=== PATIENT | male | born 1930 | race Caucasian/White ===

== ENCOUNTER → 2016-04-01 | Outpatient (CLI) | payer BC ==
[~2016-04-01] MED LIST: ACET325T96 PO; AMOX500C3 PO; CEPH500C PO; FERR1TAB13 PO; FURO80TA63 PO; INSDGI SC; MULTTAB63 PO; POTA10CA28 PO; PRLSR20 PO; SALI0.6517 NAE; SALI1SPR3; SENN8.6T15 PO; SERT1TAB68 PO; VITACAP26 PO
[2016-04-01 09:07] LABS: BASO % 0.5 %; BASO ABS # 0.04 K/uL (0-0.2); COMPLETE YES; EOS % 1.8 %; HEMATOCRIT 37.9 % (42-52); IG% 0.6 %; LYMPH % 24.2 %; LYMPH ABS # 1.87 K/uL (1.2-3.4); MEAN CELL VOLUME 88.6 fL (80-100); MEAN CORPUSCULAR HGB CONC 32.7 g/dl (32-36); MEAN PLATELET VOLUME 11.1 fL (7.4-10.4); MONO % 14.9 %; PLATELET COUNT 190 K/uL (130-400); RED BLOOD COUNT 4.28 M/uL (4.7-6.1); WHITE BLOOD COUNT 7.74 K/uL (4.8-10.8)
[2016-04-01 09:15] LABS: ALT/SGPT 21 U/L (12-78)
[2016-04-01 09:17] LABS: ALKALINE PHOSPHATASE 83 U/L (45-117); AST/SGOT 20 U/L (15-37)
== END ==
LOC: C.LABVPSUA 08:46
PROVIDERS: ATTEND Internal Medicine Critical Care Medicine
DX: D64.9 Anemia, unspecified (principal); E78.00 Pure hypercholesterolemia, unspecified; K92.1 Melena

== ENCOUNTER → 2016-05-02 | Outpatient (CLI) | payer BC ==
[2016-05-02 09:36] LABS: BASO % 0.4 %; BASO ABS # 0.03 K/uL (0-0.2); COMPLETE YES; EOS % 2.2 %; HEMATOCRIT 38.4 % (42-52); IG% 0.5 %; LYMPH % 22.3 %; LYMPH ABS # 1.64 K/uL (1.2-3.4); MEAN CELL VOLUME 91.6 fL (80-100); MEAN CORPUSCULAR HEMOGLOBIN 29.6 pg (25-34); MEAN CORPUSCULAR HGB CONC 32.3 g/dl (32-36); MEAN PLATELET VOLUME 11.6 fL (7.4-10.4); MONO % 15.1 %; NEUT % 59.5 %; PLATELET COUNT 188 K/uL (130-400); RED BLOOD COUNT 4.19 M/uL (4.7-6.1); WHITE BLOOD COUNT 7.34 K/uL (4.8-10.8)
== END | disposition home or self-care (01) ==
LOC: C.LABVPSUA 09:23
PROVIDERS: ATTEND Internal Medicine Critical Care Medicine
DX: D64.9 Anemia, unspecified (principal); K92.1 Melena

== ENCOUNTER → 2016-07-08 | Outpatient (CLI) | payer BC ==
[~2016-07-08] MED LIST changes: +ACET-1256 PO; +ASCO500T3 PO; +CEPH-571 PO; +DLC5 PO; +INSDGIPEN SC; +POLY335019 PO; +SALI0.6510 NAE; +SENN1TAB86 PO; -SENN8.6T15 PO
[2016-07-08 10:02] LABS: BASO % 0.5 %; BASO ABS # 0.04 K/uL (0-0.2); COMPLETE YES; EOS % 2.6 %; HEMATOCRIT 35.2 % (42-52); IG% 1.4 %; LYMPH % 17.5 %; LYMPH ABS # 1.47 K/uL (1.2-3.4); MEAN CELL VOLUME 91.9 fL (80-100); MEAN CORPUSCULAR HEMOGLOBIN 29.5 pg (25-34); MEAN CORPUSCULAR HGB CONC 32.1 g/dl (32-36); MEAN PLATELET VOLUME 11.6 fL (7.4-10.4); MONO % 14.9 %; NEUT % 63.1 %; PLATELET COUNT 202 K/uL (130-400); RED BLOOD COUNT 3.83 M/uL (4.7-6.1); WHITE BLOOD COUNT 8.38 K/uL (4.8-10.8)
[2016-07-08 10:59] LABS: BLOOD UREA NITROGEN 15 mg/dl (7-18); BUN/CREATININE RATIO 11.4 (10-20); CALCIUM 8.8 mg/dl (8.5-10.1); CARBON DIOXIDE 30 mmol/L (21-32); CHLORIDE 97 mmol/L (98-107); GLUCOSE 455 mg/dl (70-99); POTASSIUM 3.8 mmol/L (3.5-5.1); SODIUM 134 mmol/L (136-145)
[2016-07-08 11:31] LABS: BETA-HYDROXYBUTYRATE 2.53 mg/dL (0.2-2.81)
== END | disposition home or self-care (01) ==
LOC: C.LABVPSUA 09:50
PROVIDERS: ATTEND Internal Medicine Critical Care Medicine
DX: I10 Essential (primary) hypertension (principal); D64.9 Anemia, unspecified

== ENCOUNTER → 2016-07-30 | Outpatient (CLI) | payer BC ==
[2016-07-30 10:08] LABS: BASO % 0.7 %; BASO ABS # 0.06 K/uL (0-0.2); COMPLETE YES; EOS % 2.1 %; HEMATOCRIT 38.7 % (42-52); IG% 0.7 %; LYMPH % 20.8 %; LYMPH ABS # 1.86 K/uL (1.2-3.4); MEAN CELL VOLUME 91.9 fL (80-100); MEAN CORPUSCULAR HEMOGLOBIN 28.5 pg (25-34); MEAN PLATELET VOLUME 11.3 fL (7.4-10.4); MONO % 12.1 %; NEUT % 63.6 %; PLATELET COUNT 213 K/uL (130-400); RED BLOOD COUNT 4.21 M/uL (4.7-6.1); WHITE BLOOD COUNT 8.93 K/uL (4.8-10.8)
== END | disposition home or self-care (01) ==
LOC: C.LABVPSUA 09:51
PROVIDERS: ATTEND Internal Medicine Critical Care Medicine
DX: D64.9 Anemia, unspecified (principal); R19.5 Other fecal abnormalities

== ENCOUNTER 2016-11-30 08:36 | Emergency (ER) | payer BC ==
[~2016-11-30] VITALS: Ht 177.8 cm; Wt 116.2 kg
[~2016-11-30 08:36] MED LIST changes: -ACET-1256 PO; -ASCO500T3 PO; -CEPH-571 PO; -CEPH500C PO; -DLC5 PO; -INSDGI SC; -INSDGIPEN SC; -MULTTAB63 PO; -POLY335019 PO; -SALI0.6510 NAE; -SALI1SPR3; -SENN1TAB86 PO; +SENN8.6T15 PO; -VITACAP26 PO
[2016-11-30 08:40] VITALS: TEMP 36.5; Ht 177.8 cm; Wt 116.2 kg
[2016-11-30] MEDS ORDERED: SALI1SPR3 (09:08)
[2016-11-30] MEDS ORDERED: MULTTAB63 PO (09:08)
[2016-11-30] MEDS ORDERED: VITACAP26 PO (09:08)
[2016-11-30] MEDS ORDERED: INSDGI SC (09:08)
[2016-11-30] MEDS ORDERED: XYLOCAINE 1%/SOD BICARB 20 ML VIAL INFIL ONE (09:15)
--- NOTE | 2016-11-30 09:44 | DIAGNOSTIC IMAGING REPORT ---
RIGHT FOOT MIN 3 VIEWS ROUTINE CLINICAL HISTORY: R foot 3/4/5 toe lacerations Right trauma COMPARISON: None. DISCUSSION: Considerable degenerative change throughout the foot and ankle. Heel spur is present. Degenerative change of the intertarsal, tarsometatarsal, as well as interphalangeal joints are noted throughout. This is most significant at the first metatarsophalangeal joint. No evidence for well-defined fracture is identified. Soft tissue edema is present. IMPRESSION: 1. Considerable degenerative change. 2. Soft tissue edema. 3. No acute bony abnormality. The above report was generated using voice recognition software. It may contain grammatical, syntax or spelling errors. Electronically signed by: Vini Velazquez M.D. 11/30/2016 9:43 AM Dictated Date/Time: 11/30/2016 9:41 AM
[2016-11-30 10:18] LABS: BASO % 0.6 %; BASO ABS # 0.06 K/uL (0-0.2); COMPLETE YES; EOS % 1.4 %; HEMATOCRIT 36.2 % (42-52); IG% 0.7 %; LYMPH % 14.4 %; LYMPH ABS # 1.51 K/uL (1.2-3.4); MEAN CELL VOLUME 92.3 fL (80-100); MEAN CORPUSCULAR HEMOGLOBIN 28.8 pg (25-34); MEAN CORPUSCULAR HGB CONC 31.2 g/dl (32-36); MEAN PLATELET VOLUME 10.6 fL (7.4-10.4); MONO % 14.1 %; NEUT % 68.8 %; PLATELET COUNT 217 K/uL (130-400); RED BLOOD COUNT 3.92 M/uL (4.7-6.1); WHITE BLOOD COUNT 10.48 K/uL (4.8-10.8)
[2016-11-30 10:34] LABS: BUN/CREATININE RATIO 15.6 (10-20); CALCIUM 9.5 mg/dl (8.5-10.1); CREATININE 1.4 mg/dl (0.60-1.40); POTASSIUM 3.7 mmol/L (3.5-5.1)
[2016-11-30] MEDS ORDERED: CEFAZOLIN SOD 1 GM VIAL IV ONE (10:45)
[2016-11-30] MEDS ORDERED: CEPH500C PO (10:46)
[2016-11-30 11:48] VITALS: BP 124/60; PULSE 53; O2SAT 100
--- NOTE | 2016-11-30 12:44 | EMERGENCY ROOM VISIT NOTE ---
ED Visit Note First contact with patient: 08:40 The patient was seen and examined with Jeremy Wadsworth PA-C. I agree with the history, physical and findings. Please see the note for disposition and details.
--- NOTE | 2016-12-04 18:58 | EMERGENCY ROOM VISIT NOTE ---
ED Visit Note First contact with patient: 08:40 Chief complaint: Right foot third, fourth, and fifth toe lacerations HPI: This 86-year-old white male presents with his for evaluation of lacerations on the undersurface of his third, fourth, and fifth toes of the right foot. They are unsure how the lacerations occurred. She states that he is mild to moderately demented, and does not remember things. He resides at the [facility], and she states he gets footcare there daily. Reportedly the nursing staff noticed cracks on the bottoms of his toes that were deep, and he was referred to the ED for treatment. They are unsure how long the lacerations have been present. They are unsure how they occurred. He denies any numbness, tingling, or loss of motion. No other complaints. Tetanus is believed to be up -to-date. Pain is 0/10. He is a diabetic. Supplemental sheet was not completed Previous surgeries: Right total knee arthroplasty, cataract surgery Medical history: Significant for dementia, diabetes, hypertension, osteoarthritis, TIA, atrial fibrillation, and GERD Current Medications: Reviewed and filed in patient's chart Allergies: Aspirin, IV dye, NSAIDs Tetanus: Believed to be within 10 years Family History: Noncontributory. Parents are . Social History: . Retired. No tobacco use. Resides at the [facility]. REVIEW OF SYSTEM: HEENT: No dizziness, visual problems, hearing loss, or tinnitus. There is no difficulty swallowing and no oral lesions are present. PULMONARY: No cough, shortness of breath, sputum production or hemoptysis. CARDIOVASCULAR: No chest pain, palpitations, shortness of breath or peripheral edema. GASTROINTESTINAL: No diarrhea, constipation, nausea, vomiting, or abdominal pain. GENITOURINARY: No dysuria, frequency, urgency or nocturia. NEUROLOGIC: No weakness, muscle tenderness, epilepsy or history of neurological problems. MUSCULOSKELETAL: No history of joint tenderness/swelling. Positive history of arthritis and arthralgias. SKIN: No rashes or lesions. PSYCHIATRIC: Positive history of dementia ENDOCRINE: No history of thyroid disorders, or abnormal hair growth. Physical Exam: Vitals: Afebrile. Reviewed and filed in patient's chart General: Well-developed, well-nourished, elderly white male, in no acute distress. No obvious discomfort. He is laying on the bed. Alert and oriented. Conversive. Skin: Warm and dry with fair turgor. No rashes. No ecchymosis or erythema. The patient is not diaphoretic. No abrasions. The patient has 3 separate lacerations present on the undersurface of the third, fourth, and fifth toes. Each are at the flexion crease and they are deep. Flexor sheaths are exposed. Each measures approximately 1 cm. No foreign material is visible. Clots are present. They are all very distinct with sharp edges. No current signs of infection. Nonpurulent. Musculoskeletal: Patient has intact motor function to each of the toes for flexion and extension. Neurologic: Gross sensation is absent in each of the toes. Capillary refill is equal for each of the digits. Impression: Right foot third, fourth, and fifth toe lacerations, 3 cm total Procedure: Informed oral consent was obtained for repair. Right foot was prepped with Betadine and draped with a sterile towel. Area was anesthetized using 10 mL 1% plain buffered lidocaine in a digital block, split between the toes. Thorough inspection was performed. Wounds were irrigated copiously using normal sterile saline under jet spray lavage. Wounds were thoroughly inspected. No foreign material is visible. Flexor tendon sheaths were exposed as stated. I do not find any laceration of the flexor tendons themselves. Wounds were closed loosely using 4-0 nylon. This was done to allow drainage should they become infected, not knowing how long the lacerations have been present. Good wound edge approximation was achieved. Hemostasis was achieved. Plan: Patient and his were educated regarding today's findings. Conservative care measures were discussed. Cleanse the wounds daily with soap and water and reapply a small amount of bacitracin. Ice and elevate intermittently as needed for discomfort. Tylenol every 6 hours as needed for pain. Wound care handout was provided. Sutures out in 14 days. He may shower. Avoid soaking or swimming for two weeks. Return to the ER for any acute changes or signs of infection. He should follow-up with his orthopedist for reevaluation given the tendon sheath exposure. Patient was started on Keflex 500 mg 4 times a day 5 days as a prophylaxis against infection, again not knowing how long the lacerations have been present. Possibility of them being caused by sharp metal object, or something as simple as a tight cotton fiber in his socks, was discussed. Patient was seen in conjunction with Dr. Connelly, who also evaluated the patient and concurred with today's diagnosis and treatment plan. Problem List Medical Problems: (1) Atrial fibrillation Status: Chronic (2) Dementia Status: Chronic (3) Diabetes Status: Chronic (4) GERD (gastroesophageal reflux disease) Status: Chronic (5) Hyperlipidemia Status: Chronic (6) Hypertension Status: Chronic (7) Right cataract Status: Resolved (8) TIA (transient ischemic attack) Status: Resolved Current/Historical Medications Scheduled Cephalexin Monohydrate (Keflex), 500 MG PO QID Ferrous Sulfate (Kp Ferrous Sulfate), 325 MG PO DAILY Furosemide (Lasix), 80 MG PO DAILY Insulin Glargine (Lantus), 40 UNITS SC QAM Multiple Vitamins W/ Minerals (Therems M), 1 TAB PO DAILY Omeprazole (Prilosec), 20 MG PO DAILY Potassium Chloride (Micro-K Ext Rel), 10 MEQ PO BID Saline (Saline Nasal [place]), 2 SPRAYS NA QID Sennosides-Docusate Sodium (Sennalax-S), 1 TAB PO BID Sertraline Hcl (Zoloft), 100 MG PO HS Vitamins C & E (Vitamin C), 1 CAP PO BID Scheduled PRN Acetaminophen Tab (Tylenol), 650 MG PO Q4H PRN for Mild Pain/Temp Allergies Coded Allergies: Iodinated Diagnostic Agents (Verified Allergy, Intermediate, HIVES, ) Aspirin (Verified Adverse Reaction, Intermediate, BLEEDING ,HX STOMACH ULCER, 11/30/16) NSAIDs (Verified Adverse Reaction, Intermediate, STOMACH ULCER, 11/30/16) Vital Signs Date Time Temp Pulse Resp B/P (MAP) Pulse Ox O2 Delivery O2 Flow Rate FiO2 11/30/16 11:48 53 20 124/60 100 Room Air 11/30/16 11:06 43 16 120/52 11/30/16 09:51 47 16 135/56 99 Room Air 11/30/16 08:40 36.5 41 18 148/56 100 Room Air Laboratory Results 11/30/16 09:43 Red Blood Count 3.92, Mean Corpuscular Volume 92.3, Mean Corpuscular Hemoglobin 28.8, Mean Corpuscular Hemoglobin Concent 31.2, Mean Platelet Volume 10.6, Neutrophils (%) (Auto) 68.8, Lymphocytes (%) (Auto) 14.4, Monocytes (%) (Auto) 14.1, Eosinophils (%) (Auto) 1.4, Basophils (%) (Auto) 0.6, Neutrophils # (Auto ) 7.21, Lymphocytes # (Auto) 1.51, Monocytes # (Auto) 1.48, Eosinophils # (Auto ) 0.15, Basophils # (Auto) 0.06 11/30/16 09:43 Test 11/30/16 09:43 White Blood Count 10.48 K/uL (4.8-10.8) Red Blood Count 3.92 M/uL (4.7-6.1) Hemoglobin 11.3 g/dL (14.0-18.0) Hematocrit 36.2 % (42-52) Mean Corpuscular Volume 92.3 fL (80-100) Mean Corpuscular Hemoglobin 28.8 pg (25-34) Mean Corpuscular Hemoglobin Concent 31.2 g/dl (32-36) Platelet Count 217 K/uL (130-400) Mean Platelet Volume 10.6 fL (7.4-10.4) Neutrophils (%) (Auto) 68.8 % Lymphocytes (%) (Auto) 14.4 % Monocytes (%) (Auto) 14.1 % Eosinophils (%) (Auto) 1.4 % Basophils (%) (Auto) 0.6 % Neutrophils # (Auto) 7.21 K/uL (1.4-6.5) Lymphocytes # (Auto) 1.51 K/uL (1.2-3.4) Monocytes # (Auto) 1.48 K/uL (0.11-0.59) Eosinophils # (Auto) 0.15 K/uL (0-0.5) Basophils # (Auto) 0.06 K/uL (0-0.2) RDW Standard Deviation 50.7 fL (36.4-46.3) RDW Coefficient of Variation 15.1 % (11.5-14.5) Immature Granulocyte % (Auto) 0.7 % Immature Granulocyte # (Auto) 0.07 K/uL (0.00-0.02) Anion Gap 6.0 mmol/L (3-11) Est Creatinine Clear Calc Drug Dose 48.4 ml/min Estimated GFR () 52.4 Estimated GFR (Non- 45.2 BUN/Creatinine Ratio 15.6 (10-20) Calcium Level 9.5 mg/dl (8.5-10.1) Medications Administered Medications (Trade) Dose Ordered Sig/Fidel Route Start Time Stop Time Status Last Admin Dose Admin Lidocaine HCl (Buffered Lidocaine 1% Inj) 20 ml NOW ONCE INFIL 11/30/16 09:15 11/30/16 09:16 DC 11/30/16 09:15 20 ML Cefazolin Sodium (Ancef Inj) 2,000 mg ONE ONCE IV 11/30/16 10:45 11/30/16 10:46 DC 11/30/16 11:03 2,000 MG Departure Information Impression Primary Impression: Laceration of toe of right foot Dispostion Home / Self-Care Condition FAIR Prescriptions Cephalexin Monohydrate (Keflex) 500 Mg Cap 500 MG PO QID, #20 CAP Prov: Ladairus Wadsworth,P.A. 11/30/16 Forms WORK / SCHOOL INSTRUCTIONS, HOME CARE DOCUMENTATION FORM, Days to leave dressing on: 1 Clean wound with;: soap and water Number of times/day to clean wound: 2 Coat wound with: antibiotic ointment Suture removal in how many days: 14 TYLENOL USE, WOUND CARE INSTRUCTIONS, IMPORTANT VISIT INFORMATION Patient Instructions My [facility] infibond Additional Instructions Cleanse the wounds daily with soap and water Avoid swimming or soaking for 2 weeks He may shower and wash his feet Tylenol every 6 hours as needed for discomfort Sutures out in 14 days Follow-up with Dr. Lagunas for reexamination Keflex one pill 4 times a day 5 days Return to the ED for any acute changes or signs of infection
== END 2016-11-30 12:15 | disposition home or self-care (01) ==
LOC: EDBD 08:36 → C.EDA 08:38
DX: S91.114A Laceration without foreign body of right lesser toe(s) without damage to nail, initial encounter (principal); X58.XXXA Exposure to other specified factors, initial encounter; F03.90 Unspecified dementia, unspecified severity, without behavioral disturbance, psychotic disturbance, mood disturbance, and anxiety; E11.9 Type 2 diabetes mellitus without complications; I10 Essential (primary) hypertension; M19.90 Unspecified osteoarthritis, unspecified site; G45.9 Transient cerebral ischemic attack, unspecified; I48.91 Unspecified atrial fibrillation; K21.9 Gastro-esophageal reflux disease without esophagitis

== ENCOUNTER 2017-02-15 14:24 | Inpatient (IN) | payer BC, OTHER ==
[~2017-02-15] VITALS: Ht 175.3 cm; Wt 117.3 kg
[~2017-02-15 14:24] MED LIST changes: +ACET-1693 PO; -ACET325T96 PO; -AMOX500C3 PO; +CEPH500C PO; +INSDGI SC; +MULTTAB63 PO; +SALI-3; -SALI0.6517 NAE; +SENN1TAB86 PO; -SENN8.6T15 PO; +VITACAP26 PO
[2017-02-15] MEDS ORDERED: ONDANSETRON INJ 2 MG/ML 2 ML VIAL IV STA (14:47)
[2017-02-15] MEDS ORDERED: SODIUM CHLORIDE 0.9% 500ML 500 ML IV STA (14:47)
--- NOTE | 2017-02-15 14:55 | EMERGENCY ROOM VISIT NOTE ---
History First contact with patient: 14:34 Chief Complaint: VOMITING Stated Complaint: CONSTIPATION Nursing Triage Summary: Abdominal distention, vomiting History of Present Illness The patient is a 86 year old male who presents to the Emergency Room with complaints of vomiting and abdominal distention has gotten progressively worse over the last 2 days. The patient has a history of significant dementia. The history is taken from the shelter notes. No reported fever. He has been having bowel movements. The patient's stool softener was increased with no relief. Review of Systems Unable to obtain secondary to dementia Past Medical/Surgical History Medical Problems: (1) Atrial fibrillation (2) Dementia (3) Diabetes (4) GERD (gastroesophageal reflux disease) (5) Hyperlipidemia (6) Hypertension (7) ileus, colitis, pneumonia (8) Right cataract (9) Sepsis due to pneumonia (10) TIA (transient ischemic attack) Family History Heart disease Social History Smoking Status: Never Smoker Drug Use: none Marital Status: Housing Status: shelter Occupation Status: retired Current/Historical Medications Scheduled Ascorbic Acid (Vitamin C), 500 MG PO BID Ferrous Sulfate (Kp Ferrous Sulfate), 325 MG PO DAILY Furosemide (Lasix), 80 MG PO DAILY Insulin Glargine (Lantus), 40 UNITS SC QAM Multiple Vitamins W/ Minerals (Therems M), 1 TAB PO DAILY Omeprazole (Prilosec), 20 MG PO DAILY Polyethylene Glycol 3350 (Miralax), 17 GM PO BID Potassium Chloride (Micro-K Ext Rel), 10 MEQ PO BID Saline ([place] Nasal [place]), 2 SPRAYS KARO QID Sennosides-Docusate Sodium (Sennalax-S), 1 TAB PO BID Sertraline Hcl (Zoloft), 100 MG PO HS Scheduled PRN Acetaminophen (Tylenol), 500 MG PO BID PRN for Pain Physical Exam Vital Signs Date Time Temp Pulse Resp B/P (MAP) Pulse Ox O2 Delivery O2 Flow Rate FiO2 02/15/17 15:51 54 18 123/56 96 02/15/17 14:32 36.8 56 18 117/49 94 Room Air Physical Exam VITALS: Vitals are noted on the nurse's note and reviewed by myself. Vital signs stable. GENERAL: 86-year-old male, in no acute distress SKIN: The skin was without rashes, erythema, edema, or bruising. HEAD: Normocephalic atraumatic. MOUTH: Mucous membranes dry. NECK: No JVD. HEART: Regular rate and rhythm without murmurs gallops or rubs. LUNGS: Clear to auscultation bilaterally without wheezes, rales or rhonchi. No accessory muscle use. ABDOMEN: Abdomen is significantly distended. Still soft. Bowel sounds tympanic. No focal tenderness. No rebound tenderness MUSCULOSKELETAL: No muscle atrophy, erythema, or edema noted. NEURO: Patient was alert and trying to respond to questions. He does not always respond appropriately. He does not follow commands. Medical Decision & Procedures ER Provider Diagnostic Interpretation: CT abdomen and pelvis without contrast Patient Name: RADHA NGUYEN Unit Number: [id number] Dictated: 02/15/171643 Transcribed: 02/15/171655 DueProps Printed Date/Time: [~ rep prt dt]/[~ rep prt tm] [~ rep ct labl] - [~ rep ct ivnm] [facility] [place] [address] Dictated: 02/15/171643 Transcribed: 02/15/171655 DueProps Printed Date/Time: [~ rep prt dt]/[~ rep prt tm] [~ rep ct labl] - [~ rep ct ivnm] IMPRESSION: 1. Distended colon primarily filled with gas and liquid stool. No transition point at this time to suggest a large bowel obstruction. Therefore, this could be due to an ileus or gastroenteritis. 2. Questionable mild thickening of the distal sigmoid colon/rectum. This could be due to underdistention. However, a low-grade colitis/proctitis could also have a similar appearance in the appropriate clinical setting. 3. Trace bilateral pleural effusions. 4. Patchy bibasilar airspace opacities. This could represent atelectasis or pneumonia. 5. Cholelithiasis. 6. Stable hyperdense lesion abutting the posterior aspect of the right hepatic lobe. The stability favors a benign abnormality Electronically signed by: Terrance Brandon M.D. 02/15/2017 5:01 PM Dictated Date/Time: 02/15/2017 4:44 PM The status of this report is Signed. Draft = Not yet reviewed or approved by Radiologist. Signed = Reviewed and approved by Radiologist. <AttendingPhy></AttendingPhy> <FamilyPhy>[facility]</FamilyPhy> < PrimaryPhy>[facility]</PrimaryPhy> <UnitNumber>[id number]</UnitNumber > <VisitNumber>[id number]</VisitNumber> <PatientName>RADHA NGUYEN</ PatientName> <DateOfBirth>1930</DateOfBirth> <Location>C[facility]EDB</Location> < ServiceDate>02/15/17</ServiceDate> <MNE>ESINDI</MNE> <OrderingPhy>Dariana Hector PA-C</OrderingPhy> <OrderingPhyMNE>f rep ord dr grande</OrderingPhyMNE> < DictatingPhyMNE>f rep dict dr grande</DictatingPhyMNE> <CCListMNE>f rep ct mne</ CCListMNE> <AdmittingPhyMNE>f pt admit dr grande</AdmittingPhyMNE> <AttendingPhyMNE >f pt attend dr grande</AttendingPhyMNE> <ConsultingPhyMNE>f pt consult dr grande</ConsultingPhyMNE> <FamilyPhyMNE>f pt fam dr grande</FamilyPhyMNE> <OtherPhyMNE>f pt other dr grande</OtherPhyMNE> < PrimaryPhyMNE>f pt prim care dr grande</PrimaryPhyMNE> <ReferringPhyMNE>f pt referring dr grande</ReferringPhyMNE> Laboratory Results 02/15/17 14:52 Red Blood Count 3.62, Mean Corpuscular Volume 92.8, Mean Corpuscular Hemoglobin 29.0, Mean Corpuscular Hemoglobin Concent 31.3, Mean Platelet Volume 10.6, Neutrophils (%) (Auto) 76.3, Lymphocytes (%) (Auto) 8.4, Monocytes (%) (Auto) 14.1, Eosinophils (%) (Auto) 0.5, Basophils (%) (Auto) 0.2, Neutrophils # (Auto ) 13.55, Lymphocytes # (Auto) 1.49, Monocytes # (Auto) 2.50, Eosinophils # (Auto ) 0.08, Basophils # (Auto) 0.03 11/26/17 14:52 Test 02/15/17 14:52 02/15/17 14:56 02/15/17 17:56 White Blood Count 17.73 K/uL (4.8-10.8) Red Blood Count 3.62 M/uL (4.7-6.1) Hemoglobin 10.5 g/dL (14.0-18.0) Hematocrit 33.6 % (42-52) Mean Corpuscular Volume 92.8 fL (80-100) Mean Corpuscular Hemoglobin 29.0 pg (25-34) Mean Corpuscular Hemoglobin Concent 31.3 g/dl (32-36) Platelet Count 264 K/uL (130-400) Mean Platelet Volume 10.6 fL (7.4-10.4) Neutrophils (%) (Auto) 76.3 % Lymphocytes (%) (Auto) 8.4 % Monocytes (%) (Auto) 14.1 % Eosinophils (%) (Auto) 0.5 % Basophils (%) (Auto) 0.2 % Neutrophils # (Auto) 13.55 K/uL (1.4-6.5) Lymphocytes # (Auto) 1.49 K/uL (1.2-3.4) Monocytes # (Auto) 2.50 K/uL (0.11-0.59) Eosinophils # (Auto) 0.08 K/uL (0-0.5) Basophils # (Auto) 0.03 K/uL (0-0.2) RDW Standard Deviation 49.1 fL (36.4-46.3) RDW Coefficient of Variation 14.5 % (11.5-14.5) Immature Granulocyte % (Auto) 0.5 % Immature Granulocyte # (Auto) 0.08 K/uL (0.00-0.02) Anion Gap 9.0 mmol/L (3-11) Est Creatinine Clear Calc Drug Dose 51.3 ml/min Estimated GFR () 60.6 Estimated GFR (Non- 52.3 BUN/Creatinine Ratio 17.9 (10-20) Calcium Level 9.2 mg/dl (8.5-10.1) Total Bilirubin 0.6 mg/dl (0.2-1) Aspartate Amino Transf (AST/SGOT) 26 U/L (15-37) Alanine Aminotransferase (ALT/SGPT) 20 U/L (12-78) Alkaline Phosphatase 101 U/L (45-117) Total Protein 7.9 gm/dl (6.4-8.2) Albumin 3.1 gm/dl (3.4-5.0) Globulin 4.8 gm/dl (2.5-4.0) Albumin/Globulin Ratio 0.6 (0.9-2) Lipase 88 U/L (73-393) Bedside Lactic Acid Venous 1.08 mmol/L (0.90-1.70) Date/Time Source Procedure Growth Status 02/15/17 18:00 Stool C.difficile Toxin B Gene (PCR) - Final No C. difficile toxin B gene detected Complete Medications Administered Medications (Trade) Dose Ordered Sig/Fidel Route Start Time Stop Time Status Last Admin Dose Admin Ondansetron HCl (Zofran Inj) 4 mg NOW STAT IV 02/15/17 14:47 02/15/17 14:51 DC 02/15/17 15:29 4 MG Sodium Chloride 500 ml @ 999 mls/hr Q31M STAT IV 02/15/17 14:47 02/15/17 15:17 DC 02/15/17 15:29 999 MLS/HR Haloperidol Lactate (Haldol Inj) 5 mg NOW STAT IM 02/15/17 15:44 02/15/17 15:45 DC 02/15/17 15:49 5 MG Potassium Chloride 10 meq/ Prmx 100 ml @ 100 mls/hr TODAY@1630 IV 02/15/17 16:30 02/15/17 19:00 DC 02/15/17 17:16 100 MLS/HR Piperacillin Sod/ Tazobactam Sod (Zosyn Iv) 3.375 gm NOW STAT IV 02/15/17 17:39 02/15/17 17:40 DC 02/15/17 18:54 3.375 GM Potassium Chloride (Kcl 10 Meq / Wtr) 10 meq NOW STAT IV 02/15/17 17:48 02/15/17 17:49 DC 02/15/17 18:55 10 MEQ ED Course Patient was seen and examined Vital signs including blood pressure were reviewed medications list was verified with patient Labs were obtained, and a saline lock was established The patient was medicated with Zofran. He was hydrated with 500 mL of normal saline. The patient became agitated. He required being medicated with Haldol 5 mg IM. Imaging was performed and reviewed Upon reevaluation, the patient was resting. The case was discussed with my supervising physician who personally evaluated the patient. The case was also discussed with case management. I then spoke with Dr. cohen from general surgery. We discussed the case. He did not suggest surgical intervention at this time. He recommended medical admission. The case was discussed with the [facility] hospitalist, who kindly agreed to admit the patient to the hospital for further workup and treatment. Medical Decision DIFFERENTIAL DIAGNOSIS: Bowel obstruction, volvulus, megacolon, Gastroenteritis , Hepatitis, cholecystitis, cholangitis, biliary colic, pancreatitis, appendicitis, inguinal hernia, nephrolithiasis, inflammatory bowel disease, mesenteric adenitis, peptic ulcer disease, GERD, gastritis, pancreatitis,, bowel obstruction, splenic infarct, diverticulitis, mesenteric ischemia, metabolic, peritonitis, among others. This patient is an 86-year-old male that presented to the emergency department with abdominal distention and vomiting. He has a history of dementia; therefore , the history was taken from nursing notes from the shelter. On exam, his abdomen was significantly distended with tympanic bowel sounds. His vital signs are stable. He does not appear septic. His labs show significant leukocytosis. A CAT scan was performed. His large bowel was significantly dilated with liquid stool. This was thought to either be secondary to gastroenteritis versus an ileus. The case was discussed with general surgery. They did not feel that he needed surgical intervention at this time. They did recommend keeping the patient in the hospital for close observation. The CAT scan did also note some bibasilar opacities of the lungs. Given this and his leukocytosis, I opted to treat the patient with Zosyn, which should be adequate coverage for pulmonary and GI infectious etiology. Dr. Damon is in agreement with this plan. This chart was completed in part utilizing [employer] Speech Voice Recognition software. Attempts were made to minimize the grammatical errors, random word insertions, pronoun errors and incomplete sentences. Any formal questions or concerns about the content, text or information contained within the body of this dictation should be directly addressed to the provider for clarification. Medication Reconcilliation Current Medication List: was personally reviewed by me Blood Pressure Screening Patient's blood pressure: Normal blood pressure Consults Consulting Physician: Dr. Cohen Additional Consults: Consulted Physician: dr. melany Horta Primary Impression: Ileus Departure Information Referrals [facility] (PCP) Patient Instructions [facility]
[2017-02-15 15:03] LABS: BASO % 0.2 %; BASO ABS # 0.03 K/uL (0-0.2); EOS % 0.5 %; EOS ABS # 0.08 K/uL (0-0.5); HEMATOCRIT 33.6 % (42-52); HEMOGLOBIN 10.5 g/dL (14.0-18.0); IG# 0.08 K/uL (0.00-0.02); LYMPH % 8.4 %; LYMPH ABS # 1.49 K/uL (1.2-3.4); MEAN CELL VOLUME 92.8 fL (80-100); MEAN CORPUSCULAR HGB CONC 31.3 g/dl (32-36); MEAN PLATELET VOLUME 10.6 fL (7.4-10.4); MONO % 14.1 %; NEUT % 76.3 %; NEUT ABS # 13.55 K/uL (1.4-6.5); PLATELET COUNT 264 K/uL (130-400); RED CELL DISTRIBUTION WIDTH CV 14.5 % (11.5-14.5); RED CELL DISTRIBUTION WIDTH SD 49.1 fL (36.4-46.3); WHITE BLOOD COUNT 17.73 K/uL (4.8-10.8)
--- NOTE | 2017-02-15 15:03 | EMERGENCY ROOM VISIT NOTE ---
ED Visit Note First contact with patient: 14:34 This Patient was discussed with the physician Local Telephone Operator, Dariana Hector PA-C. The pertinent historical and physical exam findings were confirmed. I agree with the studies ordered and with the interpretations of these studies. I agree with the disposition and care plan.
[2017-02-15 15:19] LABS: ALBUMIN 3.1 gm/dl (3.4-5.0); CALCIUM 9.2 mg/dl (8.5-10.1); CREATININE 1.24 mg/dl (0.60-1.40); POTASSIUM 3.1 mmol/L (3.5-5.1)
[2017-02-15 15:22] LABS: TOTAL PROTEIN 7.9 gm/dl (6.4-8.2)
[2017-02-15] MEDS ORDERED: ACET-1256 PO (15:30)
[2017-02-15] MEDS ORDERED: ASCO500T3 PO (15:31)
[2017-02-15] MEDS ORDERED: SALI0.6510 NAE (15:32)
[2017-02-15] MEDS ORDERED: POLY335019 PO (15:33)
[2017-02-15] MEDS ORDERED: HALOPERIDOL LACTATE 5 MG/ML 1 ML VIAL IM STA (15:44)
[2017-02-15] MEDS ORDERED: POTASSIUM CHLORIDE 10 MEQ / 100ML WTR IV STA ×2 (16:05→17:48)
[2017-02-15] MEDS ORDERED: POTASSIUM CHLR 10MEQ / WTR IV SCH (16:30)
--- NOTE | 2017-02-15 17:02 | DIAGNOSTIC IMAGING REPORT ---
ABDOMEN AND PELVIS CT WITHOUT CONTRAST CT DOSE: 1094.09 mGy.cm HISTORY: vomiting abd distention ? obstruction, ischemia TECHNIQUE: Multiaxial CT images of the abdomen and pelvis were performed without contrast. A dose lowering technique was utilized adhering to the principles of ALARA. COMPARISON STUDY: Abdomen and pelvis CT 09/04/2015. FINDINGS: Trace bilateral pleural effusions. Patchy bibasilar densities. No pneumoperitoneum. No pneumatosis. No fractures within the visualized osseous structures. Stable 8.1 cm oval-shaped hyperdense lesion which abuts the posterior segment of the right hepatic lobe. The unenhanced spleen, adrenal glands are unremarkable. There are few punctate calcifications within the pancreatic head. There are few punctate gallstones. No hydronephrosis. Mild bilateral perinephric edema which is likely chronic. This remains unchanged. No retroperitoneal lymphadenopathy. Normal bladder. Small fat-containing bilateral inguinal hernias. The stomach and small bowel are normal in caliber. There is liquid stool seen throughout the colon. Colonic diverticulosis. The majority of the colon is distended and gas-filled. No transition point identified to suggest a large bowel obstruction. The transverse colon is distended up to 8.5 cm. Questionable mild thickening of the distal sigmoid colon/rectum which may be due to underdistention. Normal bladder. IMPRESSION: 1. Distended colon primarily filled with gas and liquid stool. No transition point at this time to suggest a large bowel obstruction. Therefore, this could be due to an ileus or gastroenteritis. 2. Questionable mild thickening of the distal sigmoid colon/rectum. This could be due to underdistention. However, a low-grade colitis/proctitis could also have a similar appearance in the appropriate clinical setting. 3. Trace bilateral pleural effusions. 4. Patchy bibasilar airspace opacities. This could represent atelectasis or pneumonia. 5. Cholelithiasis. 6. Stable hyperdense lesion abutting the posterior aspect of the right hepatic lobe. The stability favors a benign abnormality Electronically signed by: Terrance Brandon M.D. 02/15/2017 5:01 PM Dictated Date/Time: 02/15/2017 4:44 PM
[2017-02-15] MEDS ORDERED: PIPERACILLIN/TAZOBACTAM 3.375 GM/100ML D5W IV STA (17:39)
[2017-02-15] MEDS ORDERED: ACETAMINOPHEN 325 MG TAB PO PRN (18:00)
[2017-02-15] MEDS ORDERED: ONDANSETRON INJ 2 MG/ML 2 ML VIAL IV PRN (18:00)
[2017-02-15] MEDS ORDERED: ALUMINUM/MAGNESIUM/SIMETH (MAALOX MAX) 30 ML UDC PO PRN (18:00)
[2017-02-15] MEDS ORDERED: MAGNESIUM HYDROXIDE SUSP 30 ML UDC PO PRN (18:00)
[2017-02-15] MEDS ORDERED: POLYETHYLENE (MIRALAX) 17 GM PACK PO PRN (18:00)
--- NOTE | 2017-02-15 18:17 | History and Physical ---
History & Physical Date of Service Feb 15, 2017. History & Physical ileus, colitis, pneumonia, [id number]
[2017-02-15 18:24] VITALS: O2SAT 96; Ht 175.3 cm; Wt 117.3 kg
--- NOTE | 2017-02-15 18:24 | NUR ---
A/ID: 86 year old male in ED. Patient resides at [facility]. Abdomen firm, distended, transfer record of vomiting X 2 days as well. out of town. Unable to secure Code Word or Fall Agreement. Patient baseline of Alzheimer's or vascular dementia. He becomes agitated easily. Skin assessment needs to be done on unit. Admission Assessment done. Continued care in ED by GINNY Briones.
--- NOTE | 2017-02-15 19:00 | HISTORY & PHYSICAL EXAMINATION ---
DATE OF ADMISSION: 02/15/2017 This is level 3 inpatient admission, 35 minutes. CHIEF COMPLAINT: Abdominal distention and vomiting. HISTORY OF PRESENT ILLNESS: This is an 86-year-old white male with a significant past medical history of AFib, dementia, diabetic, GERD, hypertension, history of pneumonia, TIA, presented to the Emergency Room because of the above chief complaint. Per record, the patient was having vomiting, abdominal distention and has been getting progressively worse for 2 days. History of significant dementia. Medical record was obtained from nursing note, and per discussion with ED physician, patient with no fever, no chills, was very combative needed Haldol 5 mg in the Emergency Room. He has been having a bowel movement. When I examined him, he has bowel movement in the diaper with liquid dark green stools. Per documentation, patient's stool softener has been increased, but is not having any significant improving of bowel movement. His examination of the abdomen was tympanic, very much distended, some tenderness in palpation. There was no nausea, vomiting in the Emergency Room. Review of systems is limited, not able to obtain. In the Emergency Room, he was found to have ileus or possible colitis, C. diff was sent. CT of abdomen showed possible bilateral base pneumonia, has leukocytosis. ED started antibiotics. When I examined the patient, he was having some cough. PAST MEDICAL HISTORY: Include AFib, dementia, diabetic, GERD, dyslipidemia, hypertension, sepsis due to pneumonia, TIA. FAMILY HISTORY: Include heart disease. SOCIAL HISTORY: Never smoked. Denied alcohol abuse disorder, denied illicit drug abuse. The patient is , living in the senior living, is retired. MEDICATIONS: Prior to admission include vitamin C 500 mg p.o. b.i.d., ferrous sulfate 325 mg p.o. daily, Lasix 80 mg p.o. daily, insulin Glargine 40 units subQ q.a.m., multiple vitamin 1 tab p.o. daily, Protonix 20 mg p.o. daily, MiraLax 17 grams p.o. b.i.d., potassium chloride 10 mEq p.o. b.i.d., nasal saline spray, Senna-Lax 1 tab p.o. b.i.d., Zoloft 100 mg p.o. at bedtime. REVIEW OF SYSTEMS: Please see HPI, otherwise 14-point organ system review were negative. PHYSICAL EXAMINATION: VITAL SIGNS: Temperature is 36.8, pulse 56, respiration rate 18, blood pressure 117/49, pulse ox was 94% in room air. GENERAL: The patient is a white male, confused, moaning, obesity, no acute distress. SKIN: Has no rashes. No erythema or edema. Not bluish. In the deep sacral area, there is some reddish dime-sized area. There are 2 spots opening up. HEENT: Normocephalic. Mouth, moist mucous membrane dry. NECK: No JVD. HEART: Regular rhythm S1, S2, has no murmur, no gallop, no rubs. LUNGS: Decreased breathing sounds. There was no wheezing, rhonchi or crackles. ABDOMEN: Much significant distended and tympanic. No focal tenderness, but has diffuse tenderness. Bowel sounds decreased. MUSCULOSKELETAL: No edema, no clubbing. NEUROLOGIC: The patient was alert and trying to respond to questions; however, not responding appropriately, not able to follow our commands. LABORATORY STUDIES: WBC 17, hemoglobin 10, platelet 264, neutrophils 76%. Potassium 3.1, sodium 139, BUN 22, creatinine 1.2. Blood glucose 155. Liver function test within normal limits. Lipase 88. Blood culture was sent. IMAGING STUDIES: Abdominal pelvic CT studies were done in the Emergency Room, there was distended colons, primary feel was gas and liquid stools, no suggestion of large bowel obstruction, ileus and gastroenteritis. There is possible low grade colitis or proctitis. There was trace pleural effusion and patchy bibasilar airspace opacities. There was cholelithiasis. There was stable hyperdense lesions in the right hepatic lobe which is not new. ASSESSMENT: An 86-year-old white male with the conditions see below: 1. Likely is ileus or gastroenteritis associated with significant distention, nausea, vomiting prior to the hospital ED visit, now has at least 2 times bowel movement. 2. Diarrhea, need to rule out Clostridium difficile colitis. 3. Possible pneumonia with bibasilar opacities in the bilateral lung. 4. Obvious leukocytosis. 5. Hypokalemia. 6. Chronic anemia. 7. History of atrial fibrillation, dementia, diabetic, dyslipidemia, hypertension, transient ischemic attack. PLAN: 1. Because patient has cough and bibasilar patchy like infiltrations with leukocytosis, therefore possible has pneumonia. We will order Levaquin coverage, start nebulizer treatment, oxygen support and sputum culture. 2. Possible ileus with significant tympanic abdomen distention, possible only has 1-2 small bowel movement. We will keep n.p.o. except medication. Will give MiraLax continually daily. Per ED, they talked ot surgeon land acquisition manager already, he feel not a surgical case and they will see patient as a consult. In about 8 pm, land acquisition manager surgeon called me, patient possible have sigmoid colon volvulus, need to consult GI for possible sigmoidoscopy to Dx and treat possible sigmoid colon volvulus, I face to face to signed out to land acquisition manager shift boss hospitalist to continue care of patient. He kindly agreed about this. 3. Possible colitis, like I mentioned, will check stool Hemoccult and C. diff. GI consultation. 4. Leukocytosis, we will check for ESR, CRP, procalcitonin levels and follow up blood culture. ED physician has talked to land acquisition manager surgeon , no surgical input for now. 5. Other medical conditions include diabetic, hypertension, dyslipidemia, AFib, we will continue home medications. We will order Protonix, check HbA1c, add insulin sliding scale upon home medication. 6. GI and DVT prophylaxis is ordered. Per medical record here, although patient and are do not resuscitation, but in the last admission wanted him to be full code, need to have further discussed with the patient's about the living will and the goal of the care. LAM
--- NOTE | 2017-02-15 20:05 | Surgery Consultation ---
Consultation Date of Consultation: Feb 15, 2017. Attending Physician: History of Present Illness The patient is a 86 year old male who presents to the Emergency Room with complaints of vomiting and abdominal distention has gotten progressively worse over the last 2 days. The patient has a history of significant dementia. The history is taken from the longterm notes. No reported fever. He has been having bowel movements. The patient's stool softener was increased with no relief. I got a call for consult ileus possible colitis, I saw pt at ER, pt denies abdominal pain, passed a BM today, pt denies fever, no diarrhea. Past Medical/Surgical History Medical Problems: (1) Bilateral pneumonia Status: Acute (2) Laceration of toe of right foot Status: Acute (3) Lactic acidosis Status: Acute (4) Leukocytosis Status: Acute (5) Severe sepsis Status: Acute Family History Heart disease Social History Smoking Status: Former Smoker Smokeless Tobacco Use: No Alcohol Use: none Drug Use: none Marital Status: Housing Status: longterm Occupation Status: retired Allergies Coded Allergies: Iodinated Diagnostic Agents (Verified Allergy, Intermediate, HIVES, ) Aspirin (Verified Adverse Reaction, Intermediate, BLEEDING ,HX STOMACH ULCER, 02/15/17) NSAIDs (Verified Adverse Reaction, Intermediate, STOMACH ULCER, 02/15/17) Home Medications Scheduled Ascorbic Acid (Vitamin C), 500 MG PO BID Ferrous Sulfate (Kp Ferrous Sulfate), 325 MG PO DAILY Furosemide (Lasix), 80 MG PO DAILY Insulin Glargine (Lantus), 40 UNITS SC QAM Multiple Vitamins W/ Minerals (Therems M), 1 TAB PO DAILY Omeprazole (Prilosec), 20 MG PO DAILY Polyethylene Glycol 3350 (Miralax), 17 GM PO BID Potassium Chloride (Micro-K Ext Rel), 10 MEQ PO BID Saline ([place]), 2 SPRAYS KARO QID Sennosides-Docusate Sodium (Sennalax-S), 1 TAB PO BID Sertraline Hcl (Zoloft), 100 MG PO HS Scheduled PRN Acetaminophen (Tylenol), 500 MG PO BID PRN for Pain Current Inpatient Medications Current Inpatient Medications Medications (Trade) Dose Ordered Sig/Fidel Route Start Time Stop Time Status Last Admin Dose Admin Heparin Sodium (Porcine) (Heparin Sq 5000 Unit/0.5ml) 5,000 unit Q12 SQ 02/15/17 21:00 03/17/17 20:59 UNV Potassium Chloride/Sodium Chloride 1,000 ml @ 75 mls/hr [id number] IV 02/15/17 17:56 03/17/17 17:55 UNV Acetaminophen (Tylenol Tab) 650 mg Q4H PRN PO 02/15/17 18:00 03/17/17 17:59 Al Hydrox/Mg Hydrox/Simethicone (Maalox Max Susp) 15 ml Q4H PRN PO 02/15/17 18:00 03/17/17 17:59 Magnesium Hydroxide (Milk Of Magnesia Susp) 30 ml Q12H PRN PO 02/15/17 18:00 03/17/17 17:59 Ondansetron HCl (Zofran Inj) 4 mg Q6H PRN IV 02/15/17 18:00 03/17/17 17:59 Polyethylene (Miralax Powder Packet) 17 gm DAILY PRN PO 02/15/17 18:00 03/17/17 17:59 Levofloxacin 750 mg/Prmx 150 ml @ 100 mls/hr DAILY STAT IV 02/15/17 17:56 02/15/17 19:25 UNV Albuterol/ Ipratropium (Duoneb) 3 ml QIDR INH 02/15/17 20:00 03/17/17 19:59 Ascorbic Acid (Vitamin C Tab) 500 mg BID PO 02/15/17 21:00 03/17/17 20:59 UNV Furosemide (Lasix Tab) 80 mg DAILY PO 02/16/17 09:00 03/18/17 08:59 UNV Insulin Glargine (Lantus Solostar Pen) 30 units QAM SC 02/16/17 09:00 03/18/17 08:59 UNV Multivitamins/ Minerals (Multivitamin W/ Minerals Tab) 1 tab DAILY PO 02/16/17 09:00 03/18/17 08:59 UNV Potassium Chloride (Klor-Con M10) 10 meq BID PO 02/15/17 21:00 03/17/17 20:59 UNV Sodium Chloride ([place] Nasal [place]) 2 sprays QID KARO 02/15/17 21:00 03/17/17 20:59 UNV Senna/Docusate Sodium (Senokot S Tab) 1 tab BID PO 02/15/17 21:00 03/17/17 20:59 UNV Sertraline HCl (Zoloft Tab) 100 mg HS PO 02/15/17 21:00 03/17/17 20:59 UNV Non-Formulary Medication (Ferrous Sulfate (Kp Ferrous Sulfate)) 325 mg DAILY PO 02/16/17 09:00 03/18/17 08:59 UNV Non-Formulary Medication (Polyethylene Glycol 3350 (Miralax)) 17 gm BID PO 02/15/17 21:00 03/17/17 20:59 UNV Insulin Aspart (novoLOG ASPART) SLIDING SCALE G... ACHS SC 02/15/17 21:00 03/17/17 20:59 UNV Pantoprazole Sodium 40 mg/ Syringe 10 ml @ 5 mls/min DAILY@11 IV 02/16/17 11:00 03/18/17 10:59 UNV Pantoprazole Sodium 40 mg/ Syringe 10 ml @ 5 mls/min NOW ONCE IV 02/15/17 18:30 02/15/17 18:31 UNV Polyethylene (Miralax Powder Packet) 17 gm NOW STAT PO 02/15/17 18:17 02/15/17 18:18 UNV Review of Systems Constitutional: No fever, No chills, No sweats, No weight loss, No weakness, No fatigue, No problem reported Eyes: No worsening of vision, No eye pain, No redness, No discharge, No diplopia, No problem reported ENT: No hearing loss, No unusual epistaxis, No nasal symptoms, No sore throat, No tinnitus, No dental problems, No trouble swallowing, No problem reported Respiratory: No cough, No sputum, No wheezing, No shortness of breath, No dyspnea on exertion, No dyspnea at rest, No hemoptysis, No problem reported Cardiovascular: No chest pain, No orthopnea, No PND, No edema, No claudication , No palpitations, No problem reported Abdomen: + nausea, + vomiting Musculoskeletal: No joint pain, No muscle pain, No swelling, No calf pain, No problem reported Neurologic: + memory loss, No paralysis, No weakness, No numbness/tingling, No vertigo, No balance problems, No problem reported Psychiatric: No depression symptoms, No anhedonism, No anxiety, No insomnia, No substance abuse, No problem reported Endocrine: No fatigue, No excessive thirst, No excessive urination, No problem reported Hematologic / Lymphatic: No abnormal bleeding/bruising, No clotting problems, No swollen lymph nodes, No night sweats, No problem reported Physical Exam Date Time Temp Pulse Resp B/P (MAP) Pulse Ox O2 Delivery O2 Flow Rate FiO2 02/15/17 19:07 58 18 140/71 96 Room Air 02/15/17 18:24 96 Room Air 02/15/17 15:51 54 18 123/56 96 02/15/17 14:32 36.8 56 18 117/49 94 Room Air General Appearance: WD/WN, no apparent distress Head: normocephalic Eyes: normal inspection ENT: normal ENT inspection Neck: supple, no JVD Respiratory/Chest: chest non-tender, lungs clear Cardiovascular: regular rate, rhythm, no edema, no gallop, no JVD, no murmur Abdomen/GI: normal bowel sounds, non tender, + distended Extremities/Musculoskelatal: normal inspection, no calf tenderness, normal capillary refill Neurologic/Psych: no motor/sensory deficits, alert, normal mood/affect Skin: normal color, warm/dry, no rash Laboratory Results Last 24 Hours Test 02/15/17 14:52 02/15/17 14:56 02/15/17 17:56 White Blood Count 17.73 K/uL Red Blood Count 3.62 M/uL Hemoglobin 10.5 g/dL Hematocrit 33.6 % Mean Corpuscular Volume 92.8 fL Mean Corpuscular Hemoglobin 29.0 pg Mean Corpuscular Hemoglobin Concent 31.3 g/dl Platelet Count 264 K/uL Mean Platelet Volume 10.6 fL Neutrophils (%) (Auto) 76.3 % Lymphocytes (%) (Auto) 8.4 % Monocytes (%) (Auto) 14.1 % Eosinophils (%) (Auto) 0.5 % Basophils (%) (Auto) 0.2 % Neutrophils # (Auto) 13.55 K/uL Lymphocytes # (Auto) 1.49 K/uL Monocytes # (Auto) 2.50 K/uL Eosinophils # (Auto) 0.08 K/uL Basophils # (Auto) 0.03 K/uL RDW Standard Deviation 49.1 fL RDW Coefficient of Variation 14.5 % Immature Granulocyte % (Auto) 0.5 % Immature Granulocyte # (Auto) 0.08 K/uL Sodium Level 139 mmol/L Potassium Level 3.1 mmol/L Chloride Level 101 mmol/L Carbon Dioxide Level 30 mmol/L Anion Gap 9.0 mmol/L Blood Urea Nitrogen 22 mg/dl Creatinine 1.24 mg/dl Est Creatinine Clear Calc Drug Dose 51.3 ml/min Estimated GFR () 60.6 Estimated GFR (Non- 52.3 BUN/Creatinine Ratio 17.9 Random Glucose 155 mg/dl Calcium Level 9.2 mg/dl Total Bilirubin 0.6 mg/dl Aspartate Amino Transf (AST/SGOT) 26 U/L Alanine Aminotransferase (ALT/SGPT) 20 U/L Alkaline Phosphatase 101 U/L Total Protein 7.9 gm/dl Albumin 3.1 gm/dl Globulin 4.8 gm/dl Albumin/Globulin Ratio 0.6 Lipase 88 U/L Bedside Lactic Acid Venous 1.08 mmol/L Assessment & Plan CT scan-IMPRESSION: 1. Distended colon primarily filled with gas and liquid stool. No transition point at this time to suggest a large bowel obstruction. Therefore, this could be due to an ileus or gastroenteritis. 2. Questionable mild thickening of the distal sigmoid colon/rectum. This could be due to underdistention. However, a low-grade colitis/proctitis could also have a similar appearance in the appropriate clinical setting. 3. Trace bilateral pleural effusions. 4. Patchy bibasilar airspace opacities. This could represent atelectasis or pneumonia. 5. Cholelithiasis. 6. Stable hyperdense lesion abutting the posterior aspect of the right hepatic lobe. The stability favors a benign abnormality Assessment: pt is a 86 west old male who presents to Er for 2 days abdominal distended, with nausea and vomiting, IMP: ileus, colitis, sigmoid colon volvulus? correct low K consult GI for possible sigmoidoscopy to Dx and treat possible sigmoid colon volvulus IV fluid IV antibiotic repeat labs in am, will F/U
[2017-02-15] MEDS ORDERED: GLUCAGON FOR INJ 1 MG VIAL SQ PRN (20:15)
[2017-02-15] MEDS ORDERED: GLUCOSE 40% GEL 15 GM TUBE PO PRN (20:15)
[2017-02-15] MEDS ORDERED: GLUCOSE 10 TABS/TUBE PO PRN (20:15)
[2017-02-15] MEDS ORDERED: DEXTROSE 50% 50 ML SYR IV PRN (20:15)
[2017-02-15] MEDS ORDERED: SOD PHOSPHATE/SOD BIPHOSPHATE ENEMA 132 ML BTL PR ONE (20:30)
[2017-02-15] MEDS ORDERED: POLYETHYLENE (MIRALAX) 17 GM PACK PO STA (20:30)
[2017-02-15] MEDS ORDERED: PANTOprazole INJ 40 MG in SYRINGE 0 ML IV ONE (20:30)
[2017-02-15 20:42] VITALS: BP 139/69; PULSE 58; TEMP 37; O2SAT 99
[2017-02-15] MEDS ORDERED: PNEUMOCOCCAL ADMINISTRATION CHARGE ONE (20:45)
[2017-02-15] MEDS ORDERED: PNEUMOCOCCAL POLYSACCHARIDES 25 MCG/0.5 ML VIAL/SYR IM. ONE (20:45)
[2017-02-15 20:58] VITALS: PULSE 57; O2SAT 91
[2017-02-15] MEDS: ALBUT/IPRATROP 3MG/0.5MG NEB 3 ML VIAL INH SCH (20:58)
[2017-02-15] MEDS: DOCUSATE SODIUM/SENNA 50/8.6MG TAB PO SCH (21:00)
[2017-02-15] MEDS: POLYETHYLENE (MIRALAX) 17 GM PACK PO SCH (21:00)
[2017-02-15] MEDS: INSULIN ASPART 100 UNITS/ML 3 ML PEN SC SCH (21:00)
[2017-02-15] MEDS ORDERED: LIDOCAINE HCL 2% 2 ML VIAL (20MG/ML) ONE (21:05)
[2017-02-15] MEDS ORDERED: PROPOFOL IV EMULSION 10 MG/ML 20 ML VIAL IV ONE (21:05)
--- NOTE | 2017-02-15 21:18 | Endo History and Physical ---
History & Physical Date of Service: Feb 15, 2017. Chief Complaint: Abdominal distension Referring Physician: Dr. Nikita Ross History of Present Illness Please see dictated consultation for full details of presentation. GI is consultative due to markedly dilated colon of 11.5 cm in the cecum and 8.5 cm in the transverse colon general surgery is concerned about a possible sigmoid volvulus Past Medical History Atrial Fibrillation, Diabetes, Alzheimer's, Angioplasty/Stent, Arthritis, Asthma , Male Genitourinary Prob., Anxiety, Reflux, High Cholesterol, Heart Disease, Hypertension Past Surgical History Hx Cardiac Surgery: Yes (CARDIAC CATH WITH ANGIOPLASTY) Hx Abdominal Surgery: Yes (HERNIA) Hx Post-Op Nausea and Vomiting: No Hx Cancer Surgery: No Hx Thoracic Surgery: No Hx Orthopedic: Yes (LUMBAR SURGERY, KNEE) Hx Urinary Tract Surgery: No Social History Smoking Status: Former Smoker Smokeless Tobacco Use: No Hx Substance Use: No Hx Alcohol Use: No Allergies Coded Allergies: Iodinated Diagnostic Agents (Verified Allergy, Intermediate, HIVES, ) Aspirin (Verified Adverse Reaction, Intermediate, BLEEDING ,HX STOMACH ULCER, 02/15/17) NSAIDs (Verified Adverse Reaction, Intermediate, STOMACH ULCER, 02/15/17) Current Medications Reported Home Medications Medications Dose Route/Sig Max Daily Dose Days Date Category Dose Instructions Miralax (Polyethylene Glycol 3350) 1 Pow 17 Gm PO BID 02/15/17 Reported Prien Nasal [place] (Saline) 0.65 % Spr 2 Sprays KARO QID 02/15/17 Reported Vitamin C (Ascorbic Acid) 500 Mg Tab 500 Mg PO BID 02/15/17 Reported Tylenol (Acetaminophen) 500 Mg Tab 500 Mg PO BID PRN 02/15/17 Reported Therems M (Multiple Vitamins W/ Minerals) 1 Tab Tab 1 Tab PO DAILY 11/30/16 Reported Lantus (Insulin Glargine) 100 Unit/Ml Inj 40 Units SC QAM 11/30/16 Reported Kp Ferrous Sulfate (Ferrous Sulfate) 325 Mg Tab 325 Mg PO DAILY 12/05/15 Reported Micro-K Ext Rel (Potassium Chloride) 10 Meq Capcr 10 Meq PO BID 09/04/15 Reported Lasix (Furosemide) 80 Mg Tab 80 Mg PO DAILY 09/04/15 Reported Sennalax-S (Sennosides-Docusate Sodium) 1 Tab Tab 1 Tab PO BID 01/16/14 Reported HOLD THIS MEDICATION FOR LOOSE STOOLS. Zoloft (Sertraline Hcl) 100 Mg Tab 100 Mg PO HS 01/16/14 Reported Prilosec (Omeprazole) 20 Mg Capcr 20 Mg PO DAILY 05/05/13 Reported Vital Signs Weight (Kilograms): 106.000 Height (Feet): 5 Height (Inches): 9.00 Date Time Temp Pulse Resp B/P (MAP) Pulse Ox O2 Delivery O2 Flow Rate FiO2 02/15/17 20:58 57 16 91 Room Air 02/15/17 20:42 37.0 58 20 139/69 (92) 99 Room Air 02/15/17 20:05 58 18 130/59 95 02/15/17 19:07 58 18 140/71 96 Room Air 02/15/17 18:24 96 Room Air 02/15/17 15:51 54 18 123/56 96 02/15/17 14:32 36.8 56 18 117/49 94 Room Air Physical Exam General Appearance: + mild distress Respiratory/Chest: Auscultation: deminished air movement Cardiovascular: Heart Auscultation: murmur Abdomen: Inspection & Palpation: distended Assessment and Plan We are planning to do an urgent colonic decompression this evening due to a markedly dilated colon. It is unclear whether this represents an underlying sigmoid volvulus or perhaps colonic inertia. Recommendations Colonoscopic decompression be performed today Avoid narcotics Daily KUB
[2017-02-15] MEDS ORDERED: MINERAL OIL 30 ML UDC ONE (21:22)
[2017-02-15] MEDS ORDERED: ATROPINE SULFATE 0.1 MG/ML 5ML SYR IV PRN (21:30)
[2017-02-15] MEDS ORDERED: EpHEDrine SULFATE INJ 50 MG/ML AMP IV PRN (21:30)
--- NOTE | 2017-02-15 21:53 | NUR ---
Admission: Pt. arrived from ED to [id number] at approx. 20:10. Pt. alert to self only, but pleasant. VSS on room air. Assessment completed. Open area noted to sacrum, WOCN consult to be placed. Pt. incontinent of both urine and stool upon arrival. Pt's abdomen very distended and firm, no complaints of pain or signs of discomfort. MD Renard arrived to room at approx. 20:30. Pt. to be going to OR tonight for procedure. Pt. unable to sign his own consent or give medical history. Angela Smith, patient's , reached via telephone and consent confirmed verbally with her with MD and RN as witness. Pt. taken down to PACU at approx. 21:10 in bed on electronic sales and service technician. Care given to RN in PACU.
--- NOTE | 2017-02-15 22:07 | GI REPORT ---
Procedure Date: 02/15/2017 9:25 PM Procedure: Colonoscopy Indications: Therapeutic procedure, Abnormal CT of the GI tract Medicines: Monitored Anesthesia Care Complications: No immediate complications. Estimated blood loss: Minimal. Estimated Blood Loss: Estimated blood loss was minimal. Procedure: Pre-Anesthesia Assessment: - Prior to the procedure, a History and Physical was performed, and patient medications, allergies and sensitivities were reviewed. The patient's tolerance of previous anesthesia was reviewed. - The patient is unable to give consent secondary to the patient's altered mental status. The alternatives, risks and benefits of the procedure were discussed at length with the patient's spouse. The patient's proxy verbalized understanding of the risks as well as the alternatives and wished to proceed with the procedure. - Patient identification and proposed procedure were verified prior to the procedure by the physician, the nurse and the anesthesiologist. The procedure was verified in the procedure room. - Pre-procedure physical examination revealed no contraindications to sedation. - ASA Grade Assessment: III - A patient with severe systemic disease. - After reviewing the risks and benefits, the patient was deemed in satisfactory condition to undergo the procedure. - The anesthesia plan was to use monitored anesthesia care (MAC). - Immediately prior to administration of medications, the patient was re-assessed for adequacy to receive sedatives. - The heart rate, respiratory rate, oxygen saturations, blood pressure, adequacy of pulmonary ventilation, and response to care were monitored throughout the procedure. - The physical status of the patient was re-assessed after the procedure. After I obtained informed consent, the scope was passed under direct vision. Throughout the procedure, the patient's blood pressure, pulse, and oxygen saturations were monitored continuously. The scope was introduced through the anus and advanced to the ascending colon for evaluation. This was the intended extent. The colonoscopy was performed without difficulty. The patient tolerated the procedure well. The quality of the bowel preparation was poor. Findings: The digital rectal exam findings include non-thrombosed external hemorrhoids. The lumen of the colon (entire examined portion) was significantly dilated and filled with solid and liquid stool. I could not see an obvious obstructive point or evidnece of luminal torsion consistent with a volvulus in the visualized portions of the colon. A colonic decompression tube was placed. Impression: - Preparation of the colon was poor. - Non-thrombosed external hemorrhoids found on digital rectal exam. - Dilated in the entire examined colon. Recommendation: - Return patient to [facility] for [facility] care. - KUB TODAY AND IN AM - FLUSH RECTAL TUBE WITH 200 ML COLYTE EVERY 2 HOURS - Further managment per General database reporting consultant Honorio Glynn D.O. Honorio Glynn, 02/15/2017 10:06:39 PM This report has been signed electronically. Note Initiated On: 02/15/2017 9:25 PM I attest to the content of the Intraoperative Record and orders documented therein, exceptions below
--- NOTE | 2017-02-15 22:08 | [facility] Post Operative Brief Note ---
Immediate Operative Summary Operative Date Feb 15, 2017. Pre-Operative Diagnosis Colonic Distention Post-Operative Diagnosis Colonic Distention, No obvious volvulus seen Procedure(s) Performed Colonic Decompression with decompression tube placement. Surgeon Dr. Honorio Glynn Recovery Rn Surgeon(s) none Estimated Blood Loss 0 cc Findings Dilated colon, decompression tube placed. Specimens None Drains Rectal decompression tube Anesthesia MAC Complication(s) None Disposition Recovery Room / PACU
--- NOTE | 2017-02-15 22:12 | GASTROINTESTINAL CONSULTATION ---
DATE OF CONSULTATION: 02/15/2017 REQUESTING PHYSICIAN: Dr. Nikita Ross CHIEF COMPLAINT: Abdominal distention and vomiting. HISTORY OF PRESENT ILLNESS: This is an 86-year-old male, with a past medical history notable for atrial fibrillation, dementia, diabetes, reflux, hypertension, pneumonia and a prior TIA who presented with abdominal distention and vomiting. [place] underlying [place]. The patient is unable to give much history and therefore I reviewed his outpatient and inpatient medical records. Per the records, it appears that there has been some difficulty with the patient having bowel movements at his [facility] and the patient became noticeably distended. We were consulted for a question of sigmoid volvulus and marked colonic distention on CT scan. PAST MEDICAL HISTORY: 1. Atrial fibrillation. 2. Dementia. 3. Diabetes. 4. Reflux. 5. Hypercholesterolemia. 6. Hypertension. 7. TIA. FAMILY HISTORY: Heart disease. SOCIAL HISTORY: Nonsmoker. No history of alcohol abuse. No history of drug abuse. SOCIAL HISTORY: The patient is , but lives in a ch[facility]. 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 OUTPATIENT MEDICATIONS: 1. Vitamin C 500 mg twice daily. 2. Iron sulfate 325 mg daily. 3. Lasix 80 mg daily. 4. Glargine 40 units q.a.m. 5. Protonix 20 mg daily. 6. MiraLax 17 grams twice daily. 7. Potassium chloride 10 mEq twice daily. 8. Senna 1 tablet twice daily. 9. Zoloft 100 mg daily. REVIEW OF SYSTEMS: Unreliable due to underlying dementia. GENERAL: The patient denies fevers. CARDIAC: No chest pain. PULMONARY: No cough, no shortness of breath. GENITOURINARY: No dysuria noted. GASTROINTESTINAL: The patient with abdominal distention. PSYCHIATRIC: History of dementia. ENT: No dysphagia noted. NEUROLOGIC: The patient with history of CVAs in the past. MUSCULOSKELETAL: No new changes in joint pains or muscle pains. DERMATOLOGIC: No rashes noted. PHYSICAL EXAMINATION: VITAL SIGNS: Temperature 37.0, pulse 58, blood pressure is 139/69, respiratory rate is 20 and pulse ox 99% on room air. HEENT: No scleral icterus noted. No JVD noted. LUNGS: No wheezes or crackles are heard. CARDIAC: Systolic ejection murmur heard. ABDOMEN: Distention noted. Obese abdomen. Tympani noted. Mild tenderness is noted. EXTREMITIES: A 1+ to 2+ edema noted bilaterally. DERMATOLOGY: No spider nevi noted. The patient does have petechiae. NEUROLOGIC: Cranial nerves are grossly intact. Motor grossly intact. LABORATORIES: White blood cell count is 17.7, hemoglobin 10.5, hematocrit 33.6 and platelet count of 264. Chemistry; sodium 139, potassium 3.1, chloride is 101, BUN 22, creatinine 1.24, calcium 9.2, AST 26, ALT 20, alkaline phosphatase 101, albumin 3.1 and lipase is 88. IMAGING STUDIES: CT dated 02/15/2017; transverse colon, 8.5 cm in diameter. There is a verbal report of the cecum being 11.5 cm. There was no obvious sign of a sigmoid volvulus. IMPRESSION: Elderly male with underlying dementia, who presents to the Emergency Room with abdominal distention and marked dilation of the colon to 11.5 cm in the cecum. Given this, we will proceed with urgent colonic decompression today for a suspected ileus. I have discussed the risks of the procedure with the patient's who is his power of shuttle inspector. The patient's has provided consent over the phone, which was witnessed by one of the nursing staff. RECOMMENDATIONS: 1. Decompressive colonoscopy today. 2. Avoid narcotics. 3. Daily KUB. 4. Correct electrolytes. 5. Surgical consultation pending results of colonoscopy. Please call with any questions or concerns. LAM
--- NOTE | 2017-02-15 22:18 | Progress Note ---
Progress Note Date of Service Feb 15, 2017. Progress Note Colonic decompression performed this evening. The bowel was unprepped therefore we could not do a full examination. There was no obvious evidence of a sigmoid volvulus. A large amount of fluid and gas was removed during the examination. A colonic decompression tube was placed. Recommendations KUB tonight and in a.m. Colyte 200 mL via rectal tube every 2 hours Please call with any questions
[2017-02-15 22:50] VITALS: BP 134/69; PULSE 61; TEMP 37.1; O2SAT 97
--- NOTE | 2017-02-15 22:56 | DIAGNOSTIC IMAGING REPORT ---
KUB HISTORY: rectal tube placed COMPARISON: Abdomen and pelvis CT 02/15/2017. FINDINGS: Interval placement of a rectal tube with the tip terminating in the expected location of the descending colon. Gas-filled distended colon is again noted. No renal calculi. No ureteral calculi. No pneumoperitoneum or pneumatosis. IMPRESSION: Interval placement of a rectal tube with the tip terminating in the expected location of the descending colon. Mildly distended gas-filled colon is again noted. Electronically signed by: Terrance Brandon M.D. 02/15/2017 10:55 PM Dictated Date/Time: 02/15/2017 10:54 PM
--- NOTE | 2017-02-15 23:01 | NUR ---
A: Received pt. from PACU to [id number] at approx. 22:50. Report received from GINNY Fried. Pt. alert to self only, eyes open spontaneously, singing songs. VSS on 3 L NC. Rectal tube intact. environmental monitoring technician placed. Will continue to monitor closely.
[2017-02-15 23:21] VITALS: BP 115/72; PULSE 55; TEMP 36.9; O2SAT 100
[2017-02-15] MEDS: NSS + 20MEQ KCL 1000ML 1,000 ML IV SCH (23:24)
[2017-02-15] MEDS: LEVOFLOXACIN / D5W 750 MG in PREMIXED IN D5W 150 ML IV SCH (23:34)
[2017-02-15 23:46] LABS: INR 1.2 (0.9-1.1); PTT PATIENT 31.3 SECONDS (21.0-31.0)
[2017-02-15 23:50] VITALS: BP 95/52; PULSE 58; TEMP 37; O2SAT 92
[2017-02-16] VITALS (9 sets, daily range): BP systolic 108–133; BP diastolic 54–72; PULSE 54–86; TEMP 36.5–37.2; O2SAT 90–98
--- NOTE | 2017-02-16 | NUR ---
A: Notified patient's , Angela Mckeon, of pt's status and return to unit. Post-op VS assessed per protocol and stable on 3 L NC. A-fib on environmental monitoring technician, HR 50s-70s. See EMR for full assessment. Rectal tube flushed with 200 ml Golytely per MD order, tube patent and flushed easily. Liquid stool noted in tubing following administration. Pt. tolerated procedure well. Will continue to administer Q2H per orders. NS+20 Kcl infusing per orders. Pt. OK to receive HS PO medications per order from MD Lani. PO bowel medications held at this time due to post-operative plan of care via rectal tube. Pt. currently resting in bed, bed exit alarm on and call ferguson within reach. Will continue to monitor.
[2017-02-16] MEDS: ASCORBIC ACID 500 MG TAB PO SCH ×3 (00:11→21:56)
[2017-02-16] MEDS: SERTRALINE HCL 100 MG TAB PO SCH ×2 (00:11→21:55)
[2017-02-16] MEDS: POTASSIUM CHLORIDE 10 MEQ TABCR PO SCH ×3 (00:12→21:53)
--- NOTE | 2017-02-16 00:13 | Anesthesiology Progress Note ---
Anesthesia Post Op Note Date & Time Feb 16, 2017 at 00:13 Vital Signs Pain Intensity: 0 Vital Signs Past 12 Hours Date Time Temp Pulse Resp B/P (MAP) Pulse Ox O2 Delivery O2 Flow Rate FiO2 02/15/17 23:50 37.0 58 22 95/52 (66) 92 Nasal Cannula 3.0 02/15/17 23:21 36.9 55 22 115/72 (86) 100 Nasal Cannula 3.0 02/15/17 22:50 37.1 61 20 134/69 (90) 97 Nasal Cannula 3.0 02/15/17 22:40 36.6 54 20 108/49 100 Nasal Cannula 3 02/15/17 22:30 59 17 129/74 99 Nasal Cannula 3 02/15/17 22:20 83 25 124/63 99 Nasal Cannula 3 02/15/17 22:14 36.4 64 16 130/62 99 Nasal Cannula 3 02/15/17 20:58 57 16 91 Room Air 02/15/17 20:42 37.0 58 20 139/69 (92) 99 Room Air 02/15/17 20:05 58 18 130/59 95 02/15/17 19:07 58 18 140/71 96 Room Air 02/15/17 18:24 96 Room Air 02/15/17 15:51 54 18 123/56 96 02/15/17 14:32 36.8 56 18 117/49 94 Room Air Notes Mental Status: alert / awake / arousable, participated in evaluation Pt Amnestic to Procedure: Yes Nausea / Vomiting: adequately controlled Pain: adequately controlled Airway Patency, RR, SpO2: stable & adequate BP & HR: stable & adequate Hydration State: stable & adequate Anesthetic Complications: no major complications apparent
[2017-02-16] MEDS: SODIUM CHLORIDE 0.65% NA SOLN 45 ML (OCEAN) NAE SCH ×5 (00:25→21:53)
[2017-02-16] MEDS: LAVAGE SOLUTION 4000ML PR SCH ×4 (00:26→06:25)
[2017-02-16] MEDS ORDERED: SOD PHOSPHATE/SOD BIPHOSPHATE ENEMA 132 ML BTL PR ONE (00:30)
--- NOTE | 2017-02-16 04:00 | NUR ---
A: Pt. tolerating Q2H golytely flushes via rectal tube. Rectal tube draining liquid green stool. VSS on 3 L NC. Pt. in A-fib on playground monitor, HR 50s-60s.Abdomen remains distended and firm, pt. denies pain and shows no signs of discomfort. For full assessment, see EMR. Repositioned Q2H. Pt. incontinent of urine. Bed exit alarm on and call ferguson within reach. Will continue to monitor.
[2017-02-16] MEDS: ALBUT/IPRATROP 3MG/0.5MG NEB 3 ML VIAL INH SCH ×4 (07:22→19:53)
[2017-02-16 07:42] LABS: BASO % 0.2 %; BASO ABS # 0.04 K/uL (0-0.2); EOS % 0.6 %; HEMOGLOBIN 9.1 g/dL (14.0-18.0); IG# 0.09 K/uL (0.00-0.02); LYMPH ABS # 1.13 K/uL (1.2-3.4); MEAN CELL VOLUME 93.5 fL (80-100); MEAN CORPUSCULAR HEMOGLOBIN 28.3 pg (25-34); MEAN CORPUSCULAR HGB CONC 30.3 g/dl (32-36); MEAN PLATELET VOLUME 10.8 fL (7.4-10.4); MONO % 14.8 %; MONO ABS # 2.41 K/uL (0.11-0.59); NEUT % 76.8 %; NEUT ABS # 12.46 K/uL (1.4-6.5); PLATELET COUNT 246 K/uL (130-400); RED CELL DISTRIBUTION WIDTH CV 14.7 % (11.5-14.5); RED CELL DISTRIBUTION WIDTH SD 50.1 fL (36.4-46.3); WHITE BLOOD COUNT 16.23 K/uL (4.8-10.8)
[2017-02-16 07:57] LABS: HEMOGLOBIN A1C 6.3 % (4.5-5.6)
--- NOTE | 2017-02-16 08:00 | NUR ---
A: Alert, oriented to person only. Resting quietly in bed. Denies pain, chest pain or shortness of breath. Rectal tube remains intact draining brown liquid stool. Golytely flush order discontinued. Abdomen softly distended at this time. Afib on monitor. Call ferguson within reach. Bed alarm on. Continue to monitor.
[2017-02-16] MEDS: CEROVITE ADV FORMULA TAB PO SCH (08:07)
[2017-02-16] MEDS: FERROUS SULFATE 325 MG TAB PO SCH (08:07)
[2017-02-16] MEDS: DOCUSATE SODIUM/SENNA 50/8.6MG TAB PO SCH ×3 (08:08→21:54)
[2017-02-16] MEDS: POLYETHYLENE (MIRALAX) 17 GM PACK PO SCH ×2 (08:08→21:53)
[2017-02-16 08:13] LABS: CALCIUM 8.6 mg/dl (8.5-10.1); CREATININE 1.17 mg/dl (0.60-1.40); POTASSIUM 3.3 mmol/L (3.5-5.1)
[2017-02-16] MEDS: INSULIN ASPART 100 UNITS/ML 3 ML PEN SC SCH ×4 (08:40→22:10)
[2017-02-16] MEDS ORDERED: FUROSEMIDE 80 MG TAB PO SCH (09:00)
[2017-02-16] MEDS ORDERED: INSULIN GLARGINE SOLOSTAR 100 UNITS/ML 3 ML PEN SC SCH (09:00)
[2017-02-16] MEDS: HEPARIN SOD 5000 UNIT/0.5 ML CARP SQ SCH ×2 (10:08→22:08)
--- NOTE | 2017-02-16 11:18 | NUR ---
RD received trigger for MUST, refer to linked note for full assessment and recommendations. Addendum: 02/16/17 at [address] Amended: Links added.
--- NOTE | 2017-02-16 12:00 | NUR ---
A: Alert, oriented to person only. Restless and attempting to get OOB. 1:1 in room at this time. Continue to monitor.
--- NOTE | 2017-02-16 12:07 | DIAGNOSTIC IMAGING REPORT ---
KUB CLINICAL HISTORY: re-eval colonic distension obstruction COMPARISON STUDY: 02/15/2017 FINDINGS: Rectal tube is again noted in position most likely within the proximal sigmoid. Several slightly distended loops of sigmoid and descending colon are noted in the mid abdomen. This is slightly increased in the prior date. There are no secondary signs of free air. There are degenerative changes of the lumbar spine as well as hips. IMPRESSION: Slight increase in distention of the sigmoid. The above report was generated using voice recognition software. It may contain grammatical, syntax or spelling errors. Electronically signed by: Vini Velazquez M.D. 02/16/2017 12:06 PM Dictated Date/Time: 02/16/2017 12:04 PM
[2017-02-16] MEDS: NSS + 20MEQ KCL 1000ML 1,000 ML IV SCH (12:12)
[2017-02-16] MEDS: PANTOprazole INJ 40 MG in SYRINGE 0 ML IV SCH (12:12)
--- NOTE | 2017-02-16 12:19 | NUR ---
Discharge planning, patient high risk case find. I attempted to speak with patient however he is confused and somewhat agitated, 1:1 present. I called and spoke with his Angela Mckeon (POA) who provides information. They are both residents of [place], [facility] and Angela Mckeon lives in independent living. Patient suffers from dementia, has been at the [facility] for about 6 months. Plan is for him to return at discharge. No additional needs identified at this time. May benefit from pt/ot evals when medically stable. Case management to follow.
--- NOTE | 2017-02-16 13:40 | Gastroenterology Progress Note ---
Progress Note Date of Service: Feb 16, 2017 Subjective Pt evaluation today including: conversation w/ patient, physical exam, chart review, lab review, review of studies, review of inpatient medication list Pt admitted for abd distension concerning for possible sigmoid volvulus. Colonic decompression w rectal tube placement done by Dr. Glynn last night. Rectal tube been flushed with Golytely solution q2hrs till 6 AM today. 575ml output obtained. Pt is demented, I am unable to obtain ROS from him. Review of Systems Constitutional: + see HPI (Unable to obtain ) Medications Current Inpatient Medications Medications (Trade) Dose Ordered Sig/Fidel Route Start Time Stop Time Status Last Admin Dose Admin Heparin Sodium (Porcine) (Heparin Sq 5000 Unit/0.5ml) 5,000 unit Q12 SQ 02/16/17 09:00 03/18/17 08:59 02/16/17 10:08 5,000 UNIT Potassium Chloride/Sodium Chloride 1,000 ml @ 75 mls/hr [id number] IV 02/15/17 20:45 03/17/17 20:44 02/16/17 12:12 75 MLS/HR Acetaminophen (Tylenol Tab) 650 mg Q4H PRN PO 02/15/17 18:00 03/17/17 17:59 Al Hydrox/Mg Hydrox/Simethicone (Maalox Max Susp) 15 ml Q4H PRN PO 02/15/17 18:00 03/17/17 17:59 Magnesium Hydroxide (Milk Of Magnesia Susp) 30 ml Q12H PRN PO 02/15/17 18:00 03/17/17 17:59 Ondansetron HCl (Zofran Inj) 4 mg Q6H PRN IV 02/15/17 18:00 03/17/17 17:59 Polyethylene (Miralax Powder Packet) 17 gm DAILY PRN PO 02/15/17 18:00 03/17/17 17:59 Levofloxacin 750 mg/Prmx 150 ml @ 100 mls/hr Q24H IV 02/15/17 21:00 02/22/17 20:59 02/15/17 23:34 100 MLS/HR Albuterol/ Ipratropium (Duoneb) 3 ml QIDR INH 02/15/17 20:00 03/17/17 19:59 02/16/17 07:22 3 ML Ascorbic Acid (Vitamin C Tab) 500 mg BID PO 02/15/17 21:00 03/17/17 20:59 02/16/17 08:06 500 MG Furosemide (Lasix Tab) 80 mg DAILY PO 02/16/17 09:00 03/18/17 08:59 02/16/17 08:07 80 MG Insulin Glargine (Lantus Solostar Pen) 30 units QAM SC 02/16/17 09:00 03/18/17 08:59 Future Hold Multivitamins/ Minerals (Multivitamin W/ Minerals Tab) 1 tab DAILY PO 02/16/17 09:00 03/18/17 08:59 02/16/17 08:07 1 TAB Potassium Chloride (Klor-Con M10) 10 meq BID PO 02/15/17 21:00 03/17/17 20:59 02/16/17 08:06 10 MEQ Sodium Chloride ([place] Nasal [place]) 2 sprays QID KARO 02/15/17 21:00 03/17/17 20:59 02/16/17 12:14 2 SPRAYS Senna/Docusate Sodium (Senokot S Tab) 1 tab BID PO 02/15/17 21:00 03/17/17 20:59 02/16/17 08:15 1 TAB Sertraline HCl (Zoloft Tab) 100 mg HS PO 02/15/17 21:00 03/17/17 20:59 02/16/17 00:11 100 MG Ferrous Sulfate (Feosol Tab) 325 mg DAILY PO 02/16/17 09:00 03/18/17 08:59 02/16/17 08:07 325 MG Polyethylene (Miralax Powder Packet) 17 gm BID PO 02/15/17 21:00 03/17/17 20:59 Insulin Aspart (novoLOG ASPART) SLIDING SCALE G... ACHS SC 02/15/17 21:00 03/17/17 20:59 Pantoprazole Sodium 40 mg/ Syringe 10 ml @ 5 mls/min DAILY@11 IV 02/16/17 11:00 03/18/17 10:59 02/16/17 12:12 5 MLS/MIN Glucose (Glucose 40% Gel) 15-30 GRAMS 15 GRAMS... UD PRN PO 02/15/17 20:15 03/17/17 20:14 Glucose (Glucose Chew Tab) 4-8 Tablets 4 Tabl... UD PRN PO 02/15/17 20:15 03/17/17 20:14 Dextrose (Dextrose 50% 50ML Syringe) 25-50ML OF 50% DW IV FOR... UD PRN IV 02/15/17 20:15 03/17/17 20:14 Glucagon (Glucagon Inj) 1 mg UD PRN SQ 02/15/17 20:15 03/17/17 20:14 Erythromycin Lactobionate 250 mg/Sodium Chloride 255 ml @ 250 mls/hr Q8H IV 02/16/17 14:00 02/26/17 13:59 Objective Vital Signs Date Time Temp Pulse Resp B/P (MAP) Pulse Ox O2 Delivery O2 Flow Rate FiO2 02/16/17 12:00 Room Air 02/16/17 10:20 96 Room Air 02/16/17 08:00 Nasal Cannula 3.0 02/16/17 07:22 54 18 98 Nasal Cannula 3.0 02/16/17 07:01 36.5 78 16 133/63 (86) 96 Room Air 02/16/17 04:00 Nasal Cannula 3.0 02/16/17 03:18 37.0 65 20 120/72 (88) 93 3.0 02/16/17 01:50 36.5 61 20 123/66 (85) 97 Nasal Cannula 3.0 02/16/17 00:51 37.2 67 20 125/69 (87) 94 Nasal Cannula 3.0 02/16/17 00:00 Nasal Cannula 3.0 02/15/17 23:50 37.0 58 22 95/52 (66) 92 Nasal Cannula 3.0 02/15/17 23:21 36.9 55 22 115/72 (86) 100 Nasal Cannula 3.0 02/15/17 22:50 37.1 61 20 134/69 (90) 97 Nasal Cannula 3.0 02/15/17 22:40 36.6 54 20 108/49 100 Nasal Cannula 3 02/15/17 22:30 59 17 129/74 99 Nasal Cannula 3 02/15/17 22:20 83 25 124/63 99 Nasal Cannula 3 02/15/17 22:14 36.4 64 16 130/62 99 Nasal Cannula 3 02/15/17 20:58 57 16 91 Room Air 11/26/17 20:42 37.0 58 20 139/69 (92) 99 Room Air 02/15/17 20:05 58 18 130/59 95 02/15/17 19:07 58 18 140/71 96 Room Air 02/15/17 18:24 96 Room Air 02/15/17 15:51 54 18 123/56 96 02/15/17 14:32 36.8 56 18 117/49 94 Room Air Physical Exam General Appearance: WD/WN, no apparent distress Neck: supple, no JVD, trachea midline Respiratory/Chest: no respiratory distress, no accessory muscle use, + decreased breath sounds Cardiovascular: regular rate, rhythm, no gallop, no murmur Abdomen: + abnormal bowel sounds (Tympanic), + distended, + pertinent finding ( Rectal tube in place, draining small amt of liquid stool material) Extremities: normal inspection, no pedal edema, no calf tenderness Neurologic/Psych: alert, + disoriented Skin: normal color, no jaundice, no rash Laboratory Results Last 24 Hours Test 02/15/17 14:52 02/15/17 14:56 02/15/17 21:32 02/15/17 23:15 White Blood Count 17.73 K/uL Red Blood Count 3.62 M/uL Hemoglobin 10.5 g/dL Hematocrit 33.6 % Mean Corpuscular Volume 92.8 fL Mean Corpuscular Hemoglobin 29.0 pg Mean Corpuscular Hemoglobin Concent 31.3 g/dl Platelet Count 264 K/uL Mean Platelet Volume 10.6 fL Neutrophils (%) (Auto) 76.3 % Lymphocytes (%) (Auto) 8.4 % Monocytes (%) (Auto) 14.1 % Eosinophils (%) (Auto) 0.5 % Basophils (%) (Auto) 0.2 % Neutrophils # (Auto) 13.55 K/uL Lymphocytes # (Auto) 1.49 K/uL Monocytes # (Auto) 2.50 K/uL Eosinophils # (Auto) 0.08 K/uL Basophils # (Auto) 0.03 K/uL RDW Standard Deviation 49.1 fL RDW Coefficient of Variation 14.5 % Immature Granulocyte % (Auto) 0.5 % Immature Granulocyte # (Auto) 0.08 K/uL Sodium Level 139 mmol/L Potassium Level 3.1 mmol/L Chloride Level 101 mmol/L Carbon Dioxide Level 30 mmol/L Anion Gap 9.0 mmol/L Blood Urea Nitrogen 22 mg/dl Creatinine 1.24 mg/dl Est Creatinine Clear Calc Drug Dose 51.3 ml/min Estimated GFR () 60.6 Estimated GFR (Non- 52.3 BUN/Creatinine Ratio 17.9 Random Glucose 155 mg/dl Estimated Average Glucose 134 mg/dl Hemoglobin A1c 6.3 % Calcium Level 9.2 mg/dl Total Bilirubin 0.6 mg/dl Aspartate Amino Transf (AST/SGOT) 26 U/L Alanine Aminotransferase (ALT/SGPT) 20 U/L Alkaline Phosphatase 101 U/L Total Protein 7.9 gm/dl Albumin 3.1 gm/dl Globulin 4.8 gm/dl Albumin/Globulin Ratio 0.6 Lipase 88 U/L Bedside Lactic Acid Venous 1.08 mmol/L Bedside Glucose 138 mg/dl Prothrombin Time 13.4 SECONDS Prothromb Time International Ratio 1.2 Activated Partial Thromboplast Time 31.3 SECONDS Partial Thromboplastin Ratio 1.2 Test 02/15/17 23:52 02/16/17 07:11 02/16/17 08:20 02/16/17 11:21 Bedside Glucose 133 mg/dl 102 mg/dl 104 mg/dl White Blood Count 16.23 K/uL Red Blood Count 3.21 M/uL Hemoglobin 9.1 g/dL Hematocrit 30.0 % Mean Corpuscular Volume 93.5 fL Mean Corpuscular Hemoglobin 28.3 pg Mean Corpuscular Hemoglobin Concent 30.3 g/dl Platelet Count 246 K/uL Mean Platelet Volume 10.8 fL Neutrophils (%) (Auto) 76.8 % Lymphocytes (%) (Auto) 7.0 % Monocytes (%) (Auto) 14.8 % Eosinophils (%) (Auto) 0.6 % Basophils (%) (Auto) 0.2 % Neutrophils # (Auto) 12.46 K/uL Lymphocytes # (Auto) 1.13 K/uL Monocytes # (Auto) 2.41 K/uL Eosinophils # (Auto) 0.10 K/uL Basophils # (Auto) 0.04 K/uL RDW Standard Deviation 50.1 fL RDW Coefficient of Variation 14.7 % Immature Granulocyte % (Auto) 0.6 % Immature Granulocyte # (Auto) 0.09 K/uL Sodium Level 140 mmol/L Potassium Level 3.3 mmol/L Chloride Level 103 mmol/L Carbon Dioxide Level 28 mmol/L Anion Gap 9.0 mmol/L Blood Urea Nitrogen 21 mg/dl Creatinine 1.17 mg/dl Est Creatinine Clear Calc Drug Dose 54.4 ml/min Estimated GFR () 65.0 Estimated GFR (Non- 56.1 BUN/Creatinine Ratio 17.9 Random Glucose 97 mg/dl Calcium Level 8.6 mg/dl Phosphorus Level 3.0 mg/dl Magnesium Level 2.0 mg/dl Thyroid Stimulating Hormone (TSH) 1.000 uIu/ml Assessment and Plan Pt is a 86 y/o male with dementia, admitted with abd distension. CT abd/pelvis w /o contrast showed distended colon (transverse colon up to 8.5cm), no transition point. ? ileus vs gastroenteritis. Also distal sigmoid/rectal thickening which may be underdistension vs proctitis. He underwent colonic decompression w rectal tube placement by Dr. Glynn last night. No volvulus found. Repeat KUB this AM w slight increase in sigmoid distension. - Keep NPO - Trial Erythromycin 250mg Q8hrs to help with GI motility - Bowel regimen Senna 1 tab BID, Miralax 17g BID - Surgery following. attg add I interviewed and examined pt, reviewed chart and labs, agree with plans as above. Pt currently has no complaints and is comfortable. His abd is distended but non tender. 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 I am not sure how much of his presentation is acute vs chronic, although given his tolerance of his ileus, I suspect that he has chronic colonic distention and chronic dilation of his colon. Will give him a trial of promotility agents for now.
[2017-02-16] MEDS: ERYTHROMYCIN IV 250 MG in SODIUM CHLORIDE 0.9% 250ML 250 ML IV SCH ×2 (14:49→22:40)
--- NOTE | 2017-02-16 14:54 | NUR ---
Thanks for referral, has small intact scabs on left second and fifth toes and right great toe, will leave open to air. No breakdown on buttocks, on Accumax mattress. At risk, but skin intact.
--- NOTE | 2017-02-16 15:10 | Surgery Progress Note ---
Surgery Progress Note Date of Service Feb 16, 2017. Subjective Post OP Day: HD # 1 s/p rectal tube placement unable to obtain ROS as patient is demented Objective Vital Signs: Date Time Temp Pulse Resp B/P (MAP) Pulse Ox O2 Delivery O2 Flow Rate FiO2 02/16/17 12:00 Room Air 02/16/17 10:20 96 Room Air 02/16/17 08:00 Nasal Cannula 3.0 02/16/17 07:22 54 18 98 Nasal Cannula 3.0 02/16/17 07:01 36.5 78 16 133/63 (86) 96 Room Air 02/16/17 04:00 Nasal Cannula 3.0 02/16/17 03:18 37.0 65 20 120/72 (88) 93 3.0 02/16/17 01:50 36.5 61 20 123/66 (85) 97 Nasal Cannula 3.0 02/16/17 00:51 37.2 67 20 125/69 (87) 94 Nasal Cannula 3.0 02/16/17 00:00 Nasal Cannula 3.0 02/15/17 23:50 37.0 58 22 95/52 (66) 92 Nasal Cannula 3.0 02/15/17 23:21 36.9 55 22 115/72 (86) 100 Nasal Cannula 3.0 02/15/17 22:50 37.1 61 20 134/69 (90) 97 Nasal Cannula 3.0 02/15/17 22:40 36.6 54 20 108/49 100 Nasal Cannula 3 02/15/17 22:30 59 17 129/74 99 Nasal Cannula 3 02/15/17 22:20 83 25 124/63 99 Nasal Cannula 3 02/15/17 22:14 36.4 64 16 130/62 99 Nasal Cannula 3 02/15/17 20:58 57 16 91 Room Air 02/15/17 20:42 37.0 58 20 139/69 (92) 99 Room Air 02/15/17 20:05 58 18 130/59 95 02/15/17 19:07 58 18 140/71 96 Room Air 02/15/17 18:24 96 Room Air 02/15/17 15:51 54 18 123/56 96 General Appearance: no apparent distress Head: normocephalic, atraumatic Respiratory/Chest: no respiratory distress, no accessory muscle use Abdomen: soft, no organomegaly, no pulsatile mass, + distended Laboratory Results: Results Past 24 Hours Test 02/15/17 21:32 02/15/17 23:15 02/15/17 23:52 02/16/17 07:11 Range/Units Bedside Glucose 138 133 70-99 mg/dl Prothrombin Time 13.4 9.0-12.0 SECONDS Prothromb Time International Ratio 1.2 0.9-1.1 Activated Partial Thromboplast Time 31.3 21.0-31.0 SECONDS Partial Thromboplastin Ratio 1.2 White Blood Count 16.23 4.8-10.8 K/uL Red Blood Count 3.21 4.7-6.1 M/uL Hemoglobin 9.1 14.0-18.0 g/dL Hematocrit 30.0 42-52 % Mean Corpuscular Volume 93.5 80-100 fL Mean Corpuscular Hemoglobin 28.3 25-34 pg Mean Corpuscular Hemoglobin Concent 30.3 32-36 g/dl Platelet Count 246 130-400 K/uL Mean Platelet Volume 10.8 7.4-10.4 fL Neutrophils (%) (Auto) 76.8 % Lymphocytes (%) (Auto) 7.0 % Monocytes (%) (Auto) 14.8 % Eosinophils (%) (Auto) 0.6 % Basophils (%) (Auto) 0.2 % Neutrophils # (Auto) 12.46 1.4-6.5 K/uL Lymphocytes # (Auto) 1.13 1.2-3.4 K/uL Monocytes # (Auto) 2.41 0.11-0.59 K/uL Eosinophils # (Auto) 0.10 0-0.5 K/uL Basophils # (Auto) 0.04 0-0.2 K/uL RDW Standard Deviation 50.1 36.4-46.3 fL RDW Coefficient of Variation 14.7 11.5-14.5 % Immature Granulocyte % (Auto) 0.6 % Immature Granulocyte # (Auto) 0.09 0.00-0.02 K/uL Sodium Level 140 136-145 mmol/L Potassium Level 3.3 3.5-5.1 mmol/L Chloride Level 103 98-107 mmol/L Carbon Dioxide Level 28 21-32 mmol/L Anion Gap 9.0 3-11 mmol/L Blood Urea Nitrogen 21 7-18 mg/dl Creatinine 1.17 0.60-1.40 mg/dl Est Creatinine Clear Calc Drug Dose 54.4 ml/min Estimated GFR () 65.0 Estimated GFR (Non- 56.1 BUN/Creatinine Ratio 17.9 10-20 Random Glucose 97 70-99 mg/dl Calcium Level 8.6 8.5-10.1 mg/dl Phosphorus Level 3.0 2.5-4.9 mg/dl Magnesium Level 2.0 1.8-2.4 mg/dl Thyroid Stimulating Hormone (TSH) 1.000 0.300-4.500 uIu/ml Test 02/16/17 08:20 02/16/17 11:21 Range/Units Bedside Glucose 102 104 70-99 mg/dl Microbiology Results 02/15/17 Blood Culture, Received Pending 02/15/17 Blood Culture, Received Pending 02/15/17 C.difficile Toxin B Gene (PCR) - Final, Complete No C. difficile toxin B gene detected Diagnostic Interpretation: KUB CLINICAL HISTORY: re-eval colonic distension obstruction COMPARISON STUDY: 02/15/2017 FINDINGS: Rectal tube is again noted in position most likely within the proximal sigmoid. Several slightly distended loops of sigmoid and descending colon are noted in the mid abdomen. This is slightly increased in the prior date. There are no secondary signs of free air. There are degenerative changes of the lumbar spine as well as hips. IMPRESSION: Slight increase in distention of the sigmoid. Assessment & Plan 86 year-old with Dementia who is s/p rectal tube placement for decompression of the sigmoid colon, CT scan showing dilated transverse colon up to 8.5cm and gas and fluid filled colon concerning for gastroenteritis vs ileus. Some mild thickening of distal sigmoid/rectum could be due to underdistention or proctitis. - Leukocytosis slightly improved today to 16K - 575 cc of liquid stool output of rectal tube - KUB today showing slight increase in sigmoid distention - abdominal distention but soft Plan: No acute surgical intervention required at this time Continue medical management Continue rectal tube for decompression Continue NPO Continue IV antibiotics will follow Dr. Gabriel has seen and examined patient, agrees with above.
--- NOTE | 2017-02-16 16:00 | NUR ---
A: Pt alert and oriented to person only. VSS. Family at bedside at this time. Rectal tube intact. Draining small amt of brown liquid stool. Lung sounds course and diminished w/ moist non productive cough on RA. Denies pain or SOB. A.fib on monitor. Pt inct of urine. turn and reposition. Will continue to monitor. Bed alarm on for safety.
--- NOTE | 2017-02-16 16:42 | Progress Note ---
Subjective Date of Service: Feb 16, 2017. Subjective Pt evaluation today including: conversation w/ patient, conversation w/ family , physical exam, lab review, review of studies, conversation w/ medical economics consultant, review of inpatient medication list Pain: denies pain PO Intake: NPO Voiding: no voiding problems patient confused, cannot answer questions does not appear to be in distress, pleasant appreciate recommendations from GI and general surgery met with patient's and his son at the bedside, answered questions discussed what patient would want done in event he would need emergent surgery they both agreed that in his living will, he would not want surgery he is to be a DNR reviewed labs today and imaging Problem List Medical Problems: (1) Bilateral pneumonia Status: Acute (2) Ileus Status: Acute (3) Laceration of toe of right foot Status: Acute (4) Lactic acidosis Status: Acute (5) Leukocytosis Status: Acute (6) Severe sepsis Status: Acute Review of Systems cannot review due to dementia Medications Current Inpatient Medications Medications (Trade) Dose Ordered Sig/Fidel Route Start Time Stop Time Status Last Admin Dose Admin Heparin Sodium (Porcine) (Heparin Sq 5000 Unit/0.5ml) 5,000 unit Q12 SQ 02/16/17 09:00 03/18/17 08:59 02/16/17 10:08 5,000 UNIT Potassium Chloride/Sodium Chloride 1,000 ml @ 75 mls/hr [id number] IV 02/15/17 20:45 03/17/17 20:44 02/16/17 12:12 75 MLS/HR Acetaminophen (Tylenol Tab) 650 mg Q4H PRN PO 02/15/17 18:00 03/17/17 17:59 Al Hydrox/Mg Hydrox/Simethicone (Maalox Max Susp) 15 ml Q4H PRN PO 02/15/17 18:00 03/17/17 17:59 Magnesium Hydroxide (Milk Of Magnesia Susp) 30 ml Q12H PRN PO 02/15/17 18:00 03/17/17 17:59 Ondansetron HCl (Zofran Inj) 4 mg Q6H PRN IV 02/15/17 18:00 03/17/17 17:59 Polyethylene (Miralax Powder Packet) 17 gm DAILY PRN PO 02/15/17 18:00 03/17/17 17:59 Levofloxacin 750 mg/Prmx 150 ml @ 100 mls/hr Q24H IV 02/15/17 21:00 02/22/17 20:59 02/15/17 23:34 100 MLS/HR Albuterol/ Ipratropium (Duoneb) 3 ml QIDR INH 02/15/17 20:00 03/17/17 19:59 02/16/17 15:01 3 ML Ascorbic Acid (Vitamin C Tab) 500 mg BID PO 02/15/17 21:00 03/17/17 20:59 02/16/17 08:06 500 MG Insulin Glargine (Lantus Solostar Pen) 30 units QAM SC 02/16/17 09:00 03/18/17 08:59 Future Hold Multivitamins/ Minerals (Multivitamin W/ Minerals Tab) 1 tab DAILY PO 02/16/17 09:00 03/18/17 08:59 02/16/17 08:07 1 TAB Potassium Chloride (Klor-Con M10) 10 meq BID PO 02/15/17 21:00 03/17/17 20:59 02/16/17 08:06 10 MEQ Sodium Chloride ([place] Nasal [place]) 2 sprays QID KARO 02/15/17 21:00 03/17/17 20:59 02/16/17 12:14 2 SPRAYS Senna/Docusate Sodium (Senokot S Tab) 1 tab BID PO 02/15/17 21:00 03/17/17 20:59 02/16/17 08:15 1 TAB Sertraline HCl (Zoloft Tab) 100 mg HS PO 02/15/17 21:00 03/17/17 20:59 02/16/17 00:11 100 MG Ferrous Sulfate (Feosol Tab) 325 mg DAILY PO 02/16/17 09:00 03/18/17 08:59 02/16/17 08:07 325 MG Polyethylene (Miralax Powder Packet) 17 gm BID PO 02/15/17 21:00 03/17/17 20:59 Insulin Aspart (novoLOG ASPART) SLIDING SCALE G... ACHS SC 02/15/17 21:00 03/17/17 20:59 Pantoprazole Sodium 40 mg/ Syringe 10 ml @ 5 mls/min DAILY@11 IV 02/16/17 11:00 03/18/17 10:59 02/16/17 12:12 5 MLS/MIN Glucose (Glucose 40% Gel) 15-30 GRAMS 15 GRAMS... UD PRN PO 02/15/17 20:15 03/17/17 20:14 Glucose (Glucose Chew Tab) 4-8 Tablets 4 Tabl... UD PRN PO 02/15/17 20:15 03/17/17 20:14 Dextrose (Dextrose 50% 50ML Syringe) 25-50ML OF 50% DW IV FOR... UD PRN IV 02/15/17 20:15 03/17/17 20:14 Glucagon (Glucagon Inj) 1 mg UD PRN SQ 02/15/17 20:15 03/17/17 20:14 Erythromycin Lactobionate 250 mg/Sodium Chloride 255 ml @ 250 mls/hr Q8H IV 02/16/17 14:00 02/26/17 13:59 02/16/17 14:49 250 MLS/HR Objective Vital Signs Date Time Temp Pulse Resp B/P (MAP) Pulse Ox O2 Delivery O2 Flow Rate FiO2 02/16/17 15:01 74 18 91 Room Air 02/16/17 12:00 Room Air 02/16/17 10:20 96 Room Air 02/16/17 08:00 Nasal Cannula 3.0 02/16/17 07:22 54 18 98 Nasal Cannula 3.0 02/16/17 07:01 36.5 78 16 133/63 (86) 96 Room Air 02/16/17 04:00 Nasal Cannula 3.0 02/16/17 03:18 37.0 65 20 120/72 (88) 93 3.0 02/16/17 01:50 36.5 61 20 123/66 (85) 97 Nasal Cannula 3.0 02/16/17 00:51 37.2 67 20 125/69 (87) 94 Nasal Cannula 3.0 02/16/17 00:00 Nasal Cannula 3.0 02/15/17 23:50 37.0 58 22 95/52 (66) 92 Nasal Cannula 3.0 02/15/17 23:21 36.9 55 22 115/72 (86) 100 Nasal Cannula 3.0 02/15/17 22:50 37.1 61 20 134/69 (90) 97 Nasal Cannula 3.0 02/15/17 22:40 36.6 54 20 108/49 100 Nasal Cannula 3 02/15/17 22:30 59 17 129/74 99 Nasal Cannula 3 02/15/17 22:20 83 25 124/63 99 Nasal Cannula 3 02/15/17 22:14 36.4 64 16 130/62 99 Nasal Cannula 3 02/15/17 20:58 57 16 91 Room Air 02/15/17 20:42 37.0 58 20 139/69 (92) 99 Room Air 02/15/17 20:05 58 18 130/59 95 02/15/17 19:07 58 18 140/71 96 Room Air 02/15/17 18:24 96 Room Air Physical Exam General Appearance: WD/WN, no apparent distress Eyes: normal inspection, EOMI, sclerae normal ENT: normal ENT inspection, hearing grossly normal, pharynx normal Neck: supple, no adenopathy, no JVD, trachea midline Respiratory/Chest: chest non-tender, lungs clear, normal breath sounds, no respiratory distress, no accessory muscle use Cardiovascular: regular rate, rhythm, no edema, no gallop, no JVD, no murmur Abdomen: non tender, soft, no organomegaly, + abnormal bowel sounds, + distended Extremities: normal range of motion, non-tender, normal inspection, no pedal edema, no calf tenderness, pelvis stable Neurologic/Psychiatric: business broker II-XII nml as tested, no motor/sensory deficits, alert, normal mood/affect, oriented x 3 Skin: normal color, warm/dry, no rash Lymphatic: no adenopathy Laboratory Results Last 24 Hours Test 02/15/17 21:32 02/15/17 23:15 02/15/17 23:52 02/16/17 07:11 Bedside Glucose 138 mg/dl 133 mg/dl Prothrombin Time 13.4 SECONDS Prothromb Time International Ratio 1.2 Activated Partial Thromboplast Time 31.3 SECONDS Partial Thromboplastin Ratio 1.2 White Blood Count 16.23 K/uL Red Blood Count 3.21 M/uL Hemoglobin 9.1 g/dL Hematocrit 30.0 % Mean Corpuscular Volume 93.5 fL Mean Corpuscular Hemoglobin 28.3 pg Mean Corpuscular Hemoglobin Concent 30.3 g/dl Platelet Count 246 K/uL Mean Platelet Volume 10.8 fL Neutrophils (%) (Auto) 76.8 % Lymphocytes (%) (Auto) 7.0 % Monocytes (%) (Auto) 14.8 % Eosinophils (%) (Auto) 0.6 % Basophils (%) (Auto) 0.2 % Neutrophils # (Auto) 12.46 K/uL Lymphocytes # (Auto) 1.13 K/uL Monocytes # (Auto) 2.41 K/uL Eosinophils # (Auto) 0.10 K/uL Basophils # (Auto) 0.04 K/uL RDW Standard Deviation 50.1 fL RDW Coefficient of Variation 14.7 % Immature Granulocyte % (Auto) 0.6 % Immature Granulocyte # (Auto) 0.09 K/uL Sodium Level 140 mmol/L Potassium Level 3.3 mmol/L Chloride Level 103 mmol/L Carbon Dioxide Level 28 mmol/L Anion Gap 9.0 mmol/L Blood Urea Nitrogen 21 mg/dl Creatinine 1.17 mg/dl Est Creatinine Clear Calc Drug Dose 54.4 ml/min Estimated GFR () 65.0 Estimated GFR (Non- 56.1 BUN/Creatinine Ratio 17.9 Random Glucose 97 mg/dl Calcium Level 8.6 mg/dl Phosphorus Level 3.0 mg/dl Magnesium Level 2.0 mg/dl Thyroid Stimulating Hormone (TSH) 1.000 uIu/ml Test 02/16/17 08:20 02/16/17 11:21 Bedside Glucose 102 mg/dl 104 mg/dl Assessment and Plan 86 yo male with dementia, presents with abdominal distention, pain, diarrhea, dyspnea, leukocytosis and colonic distension on CT abdomen, filled with fluid and gas - Colonic distension: rectal tube placed on 02/[address] Glynn, decompressed KUB today shows increased transverse colon distension, rectal tube in good position GI recommending erythromycin as prokinetic bowel regimen, tube to stay in place, NPO C diff negative evaluated by surgery, no immediate surgical needs at this time discussed with family, would not want surgical intervention - Pneumonia: afebrile, mild reduction in leukocytosis, continue Levaquin - Hypokalemia: K is 3.3 today, continue 20mEq in IV fluid - Severe dementia DNR will need to re-evaluate tomorrow and discuss with surgery and GI
--- NOTE | 2017-02-16 20:00 | NUR ---
A: Assessment unchanged. Pt oriented to person. Pt A.fib on monitor. Pt denies any pain or SOB. Pt incontinent, turn and reposition. Will continue to monitor. Bed alarm on for safety.
[2017-02-16] MEDS: LEVOFLOXACIN / D5W 750 MG in PREMIXED IN D5W 150 ML IV SCH (21:51)
[2017-02-17] VITALS (12 sets, daily range): BP systolic 103–153; BP diastolic 62–83; PULSE 64–77; TEMP 36.4–36.9; O2SAT 90–99
--- NOTE | 2017-02-17 | NUR ---
A: Pt alert to person only. IVF infusing. Rectal tube in place, flushing Q4hr with 20ml of NSS. NPO except meds at this time. Aspiration precautions. Afib on the monitor. Assessment completed, see EMR. VSS on RA. Bed alarm in place. Will continue to monitor.
[2017-02-17] MEDS: NSS + 20MEQ KCL 1000ML 1,000 ML IV SCH ×2 (02:30→12:16)
--- NOTE | 2017-02-17 04:00 | NUR ---
A: Pt assessment unchanged. VSS on RA. Rectal tube flushed, remains patent, minimal output. Incontinent of urine. IVF infusing as ordered. No pain. Pt disoriented. Afib on the tele monitor. NPO but meds. Bedrest. Bed alarm in place.
[2017-02-17] MEDS: ERYTHROMYCIN IV 250 MG in SODIUM CHLORIDE 0.9% 250ML 250 ML IV SCH ×3 (06:12→23:15)
[2017-02-17] MEDS: INSULIN ASPART 100 UNITS/ML 3 ML PEN SC SCH ×4 (06:30→20:34)
[2017-02-17 06:54] LABS: HEMATOCRIT 30.4 % (42-52); HEMOGLOBIN 9.2 g/dL (14.0-18.0); MEAN CELL VOLUME 93.3 fL (80-100); MEAN CORPUSCULAR HEMOGLOBIN 28.2 pg (25-34); MEAN CORPUSCULAR HGB CONC 30.3 g/dl (32-36); PLATELET COUNT 254 K/uL (130-400); RED CELL DISTRIBUTION WIDTH CV 14.7 % (11.5-14.5); RED CELL DISTRIBUTION WIDTH SD 50.2 fL (36.4-46.3); WHITE BLOOD COUNT 14.54 K/uL (4.8-10.8)
[2017-02-17] MEDS: ALBUT/IPRATROP 3MG/0.5MG NEB 3 ML VIAL INH SCH ×4 (07:24→19:27)
[2017-02-17 07:29] LABS: CALCIUM 8.7 mg/dl (8.5-10.1); CREATININE 1.22 mg/dl (0.60-1.40); POTASSIUM 3.6 mmol/L (3.5-5.1)
--- NOTE | 2017-02-17 08:00 | NUR ---
A: Patient alert and oriented x 1. on bedrest. rectal tube in placed and flushed with 20cc per order. Minimal drainage noted. Afib on monitor. waffle boots on, turn and reposition. See EMR for full head to toe assessment. Will continue to monitor.
[2017-02-17] MEDS: HEPARIN SOD 5000 UNIT/0.5 ML CARP SQ SCH ×2 (08:15→20:33)
[2017-02-17] MEDS: POTASSIUM CHLORIDE 10 MEQ TABCR PO SCH ×2 (08:18→20:34)
[2017-02-17] MEDS: CEROVITE ADV FORMULA TAB PO SCH (08:18)
[2017-02-17] MEDS: FERROUS SULFATE 325 MG TAB PO SCH (08:18)
[2017-02-17] MEDS: ASCORBIC ACID 500 MG TAB PO SCH ×2 (08:19→20:32)
[2017-02-17] MEDS: POLYETHYLENE (MIRALAX) 17 GM PACK PO SCH ×2 (08:19→20:35)
[2017-02-17] MEDS: SODIUM CHLORIDE 0.65% NA SOLN 45 ML (OCEAN) NAE SCH ×4 (08:19→20:35)
[2017-02-17] MEDS: DOCUSATE SODIUM/SENNA 50/8.6MG TAB PO SCH ×2 (08:39→20:32)
--- NOTE | 2017-02-17 10:15 | DIAGNOSTIC IMAGING REPORT ---
KUB CLINICAL HISTORY: Colonic distention. Colitis. Final is: 3 AP supine abdominal radiographs are compared to study dated 02/16/2017 and correlated with abdominal CT dated 02/15/2017. A rectal tube projects over the pelvis. An Electronic device projects over the upper abdomen. There is gaseous distention of the colon which measures up to 10 cm. The small bowel loops are normal in caliber. Phleboliths are observed in the pelvis. The skeletal structures are osteopenic. Lumbosacral spondylosis and scoliosis are observed. IMPRESSION: 1. A rectal tube projects over the pelvis. There is persistent gaseous distention of the colon which measures up to 10 cm. 2. The small bowel loops are normal in caliber. Electronically signed by: Alberto Beltran M.D. 02/17/2017 10:13 AM Dictated Date/Time: 02/17/2017 10:11 AM
--- NOTE | 2017-02-17 11:59 | Gastroenterology Progress Note ---
Progress Note Date of Service: Feb 17, 2017 Subjective Pt evaluation today including: conversation w/ patient, physical exam, chart review, lab review, review of studies, review of inpatient medication list Mr. rByan is an 86 yr old male admitted on 02/[address] on arrival with 8.6cm transverse colon distention. Pt denies pain. Had a moderate loose BM today and abdomen was soft after BM. KUB done today, just after the BM with persistent distention, now a 10cm transverse colon diameter. Review of Systems Constitutional: No fever Respiratory: No cough Cardiac: No chest pain Abdomen: + pain (denies), No nausea, No vomiting Male : No dysuria Neuro: No memory loss Psych: No depression symptoms Heme: No abnormal bleeding/bruising Endo: No fatigue Medications Current Inpatient Medications Medications (Trade) Dose Ordered Sig/Fidel Route Start Time Stop Time Status Last Admin Dose Admin Heparin Sodium (Porcine) (Heparin Sq 5000 Unit/0.5ml) 5,000 unit Q12 SQ 02/16/17 09:00 03/18/17 08:59 02/17/17 08:15 5,000 UNIT Potassium Chloride/Sodium Chloride 1,000 ml @ 75 mls/hr [id number] IV 02/15/17 20:45 03/17/17 20:44 02/17/17 02:30 75 MLS/HR Acetaminophen (Tylenol Tab) 650 mg Q4H PRN PO 02/15/17 18:00 03/17/17 17:59 Al Hydrox/Mg Hydrox/Simethicone (Maalox Max Susp) 15 ml Q4H PRN PO 02/15/17 18:00 03/17/17 17:59 Magnesium Hydroxide (Milk Of Magnesia Susp) 30 ml Q12H PRN PO 02/15/17 18:00 03/17/17 17:59 Ondansetron HCl (Zofran Inj) 4 mg Q6H PRN IV 02/15/17 18:00 03/17/17 17:59 Polyethylene (Miralax Powder Packet) 17 gm DAILY PRN PO 02/15/17 18:00 03/17/17 17:59 Levofloxacin 750 mg/Prmx 150 ml @ 100 mls/hr Q24H IV 02/15/17 21:00 02/22/17 20:59 02/16/17 21:51 100 MLS/HR Albuterol/ Ipratropium (Duoneb) 3 ml QIDR INH 02/15/17 20:00 03/17/17 19:59 02/17/17 11:42 3 ML Ascorbic Acid (Vitamin C Tab) 500 mg BID PO 02/15/17 21:00 03/17/17 20:59 02/17/17 08:19 500 MG Insulin Glargine (Lantus Solostar Pen) 30 units QAM SC 02/16/17 09:00 03/18/17 08:59 Future Hold Multivitamins/ Minerals (Multivitamin W/ Minerals Tab) 1 tab DAILY PO 02/16/17 09:00 03/18/17 08:59 02/17/17 08:18 1 TAB Potassium Chloride (Klor-Con M10) 10 meq BID PO 02/15/17 21:00 03/17/17 20:59 02/17/17 08:18 10 MEQ Sodium Chloride ([place] Nasal [place]) 2 sprays QID KARO 02/15/17 21:00 03/17/17 20:59 02/17/17 08:19 2 SPRAYS Senna/Docusate Sodium (Senokot S Tab) 1 tab BID PO 02/15/17 21:00 03/17/17 20:59 02/17/17 08:39 1 TAB Sertraline HCl (Zoloft Tab) 100 mg HS PO 02/15/17 21:00 03/17/17 20:59 02/16/17 21:55 100 MG Ferrous Sulfate (Feosol Tab) 325 mg DAILY PO 02/16/17 09:00 03/18/17 08:59 02/17/17 08:18 325 MG Polyethylene (Miralax Powder Packet) 17 gm BID PO 02/15/17 21:00 03/17/17 20:59 02/17/17 08:19 17 GM Insulin Aspart (novoLOG ASPART) SLIDING SCALE G... ACHS SC 02/15/17 21:00 03/17/17 20:59 Pantoprazole Sodium 40 mg/ Syringe 10 ml @ 5 mls/min DAILY@11 IV 02/16/17 11:00 03/18/17 10:59 02/16/17 12:12 5 MLS/MIN Glucose (Glucose 40% Gel) 15-30 GRAMS 15 GRAMS... UD PRN PO 02/15/17 20:15 03/17/17 20:14 Glucose (Glucose Chew Tab) 4-8 Tablets 4 Tabl... UD PRN PO 02/15/17 20:15 03/17/17 20:14 Dextrose (Dextrose 50% 50ML Syringe) 25-50ML OF 50% DW IV FOR... UD PRN IV 02/15/17 20:15 03/17/17 20:14 Glucagon (Glucagon Inj) 1 mg UD PRN SQ 02/15/17 20:15 03/17/17 20:14 Erythromycin Lactobionate 250 mg/Sodium Chloride 255 ml @ 250 mls/hr Q8H IV 02/16/17 14:00 02/26/17 13:59 02/17/17 06:12 250 MLS/HR Objective Vital Signs Date Time Temp Pulse Resp B/P (MAP) Pulse Ox O2 Delivery O2 Flow Rate FiO2 02/17/17 11:42 74 18 97 Room Air 02/17/17 10:53 36.5 64 18 135/68 (90) 95 Room Air 02/17/17 08:00 Room Air 02/17/17 07:24 74 18 92 Room Air 02/17/17 07:01 36.6 77 18 114/67 (83) 99 Room Air 02/17/17 04:00 90 Room Air 02/17/17 03:52 36.4 77 18 103/62 (76) 92 Room Air 02/17/17 00:00 90 Room Air 02/16/17 23:37 36.9 70 18 108/54 (72) 91 Room Air 02/16/17 20:00 Room Air 02/16/17 19:55 86 18 90 Room Air 02/16/17 16:00 Room Air 02/16/17 15:01 74 18 91 Room Air 02/16/17 12:00 Room Air Physical Exam General Appearance: no apparent distress Neck: no JVD Respiratory/Chest: lungs clear Cardiovascular: no JVD, no murmur Abdomen: soft, + distended (moderate, but soft), + hernia (large ventral hernia , non tender) Extremities: no pedal edema Neurologic/Psych: alert, normal mood/affect, oriented x 3 Skin: no jaundice Laboratory Results Last 24 Hours Test 02/16/17 17:00 02/16/17 21:58 02/16/17 22:27 02/17/17 06:28 Bedside Glucose 95 mg/dl 94 mg/dl Stool Occult Blood POSITIVE White Blood Count 14.54 K/uL Red Blood Count 3.26 M/uL Hemoglobin 9.2 g/dL Hematocrit 30.4 % Mean Corpuscular Volume 93.3 fL Mean Corpuscular Hemoglobin 28.2 pg Mean Corpuscular Hemoglobin Concent 30.3 g/dl Platelet Count 254 K/uL Mean Platelet Volume 11.0 fL RDW Standard Deviation 50.2 fL RDW Coefficient of Variation 14.7 % Neutrophils % (Manual) 77.5 % Lymphocytes % (Manual) 5.2 % Monocytes % (Manual) 16.4 % Basophils % (Manual) 0.9 % Neutrophils # (Manual) 11.27 K/uL Total Absolute Neutrophils 11.27 K/uL Lymphocytes # (Manual) 0.76 K/uL Total Absolute Lymphocytes 0.76 K/uL Monocytes # (Manual) 2.38 K/uL Basophils # (Manual) 0.13 K/uL Polychromasia 1+ Hypochromasia PRESENT Sodium Level 138 mmol/L Potassium Level 3.6 mmol/L Chloride Level 102 mmol/L Carbon Dioxide Level 27 mmol/L Anion Gap 9.0 mmol/L Blood Urea Nitrogen 23 mg/dl Creatinine 1.22 mg/dl Est Creatinine Clear Calc Drug Dose 54.3 ml/min Estimated GFR () 61.8 Estimated GFR (Non- 53.4 BUN/Creatinine Ratio 18.7 Random Glucose 100 mg/dl Calcium Level 8.7 mg/dl Magnesium Level 1.9 mg/dl Test 02/17/17 07:26 Bedside Glucose 92 mg/dl Assessment and Plan Mr. Bryan is an 86 yr old with colonic distention. C-diff is negative. He appears comfortable. Would question if this is a chronically distended colon from chronic constipation. Plan: 1. Continue the e-mycin, dulcolax. 2. Please maintain K >4.0. 3. GI will continue to follow.A Attg add: I interviewed and examined pt, reviewed chart and labs. Pt cont to have abd distention, minimal stool output. Will advance diet to fulls and cont pro mot agents for now; if pt develops progressive abd distention, may consider eventual cscopy decompression.
--- NOTE | 2017-02-17 12:00 | NUR ---
A: Patient resting in bed. Patient alert and oriented x 1. on bedrest. rectal tube in place and flushed with 20cc per order. Minimal drainage noted. Afib on monitor. waffle boots on, turn and reposition. See EMR for full head to toe assessment. Will continue to monitor.
[2017-02-17] MEDS: PANTOprazole INJ 40 MG in SYRINGE 0 ML IV SCH (12:16)
--- NOTE | 2017-02-17 14:21 | Surgery Progress Note ---
Surgery Progress Note Date of Service Feb 17, 2017. Subjective Post OP Day: HD # 2, s/p placement of rectal tube patient is demented, unable to obtain complete review of systems When asked if he is having abdominal pain he clearly states no Objective Vital Signs: Date Time Temp Pulse Resp B/P (MAP) Pulse Ox O2 Delivery O2 Flow Rate FiO2 02/17/17 12:00 Room Air 02/17/17 11:42 74 18 97 Room Air 02/17/17 10:53 36.5 64 18 135/68 (90) 95 Room Air 02/17/17 08:00 Room Air 02/17/17 07:24 74 18 92 Room Air 02/17/17 07:01 36.6 77 18 114/67 (83) 99 Room Air 02/17/17 04:00 90 Room Air 02/17/17 03:52 36.4 77 18 103/62 (76) 92 Room Air 02/17/17 00:00 90 Room Air 02/16/17 23:37 36.9 70 18 108/54 (72) 91 Room Air 02/16/17 20:00 Room Air 02/16/17 19:55 86 18 90 Room Air 02/16/17 16:00 Room Air 02/16/17 15:01 74 18 91 Room Air General Appearance: no apparent distress Head: normocephalic, atraumatic Neck: trachea midline Respiratory/Chest: no respiratory distress, no accessory muscle use Abdomen: non tender, soft, + distended (very mild, much improved) Laboratory Results: Results Past 24 Hours Test 02/16/17 17:00 02/16/17 21:58 02/16/17 22:27 02/17/17 06:28 Range/Units Bedside Glucose 95 94 70-99 mg/dl Stool Occult Blood POSITIVE NEGATIVE White Blood Count 14.54 4.8-10.8 K/uL Red Blood Count 3.26 4.7-6.1 M/uL Hemoglobin 9.2 14.0-18.0 g/dL Hematocrit 30.4 42-52 % Mean Corpuscular Volume 93.3 80-100 fL Mean Corpuscular Hemoglobin 28.2 25-34 pg Mean Corpuscular Hemoglobin Concent 30.3 32-36 g/dl Platelet Count 254 130-400 K/uL Mean Platelet Volume 11.0 7.4-10.4 fL RDW Standard Deviation 50.2 36.4-46.3 fL RDW Coefficient of Variation 14.7 11.5-14.5 % Neutrophils % (Manual) 77.5 % Lymphocytes % (Manual) 5.2 % Monocytes % (Manual) 16.4 % Basophils % (Manual) 0.9 0-2 % Neutrophils # (Manual) 11.27 1.4-6.5 K/uL Total Absolute Neutrophils 11.27 1.4-6.5 K/uL Lymphocytes # (Manual) 0.76 1.2-3.4 K/uL Total Absolute Lymphocytes 0.76 1.2-3.4 K/uL Monocytes # (Manual) 2.38 0.11-0.59 K/uL Basophils # (Manual) 0.13 0-0.2 K/uL Polychromasia 1+ Hypochromasia PRESENT Sodium Level 138 136-145 mmol/L Potassium Level 3.6 3.5-5.1 mmol/L Chloride Level 102 98-107 mmol/L Carbon Dioxide Level 27 21-32 mmol/L Anion Gap 9.0 3-11 mmol/L Blood Urea Nitrogen 23 7-18 mg/dl Creatinine 1.22 0.60-1.40 mg/dl Est Creatinine Clear Calc Drug Dose 54.3 ml/min Estimated GFR () 61.8 Estimated GFR (Non- 53.4 BUN/Creatinine Ratio 18.7 10-20 Random Glucose 100 70-99 mg/dl Calcium Level 8.7 8.5-10.1 mg/dl Magnesium Level 1.9 1.8-2.4 mg/dl Test 02/17/17 07:26 02/17/17 11:40 Range/Units Bedside Glucose 92 104 70-99 mg/dl Diagnostic Interpretation: KUB CLINICAL HISTORY: Colonic distention. Colitis. Final is: 3 AP supine abdominal radiographs are compared to study dated 02/16/2017 and correlated with abdominal CT dated 02/15/2017. A rectal tube projects over the pelvis. An Electronic device projects over the upper abdomen. There is gaseous distention of the colon which measures up to 10 cm. The small bowel loops are normal in caliber. Phleboliths are observed in the pelvis. The skeletal structures are osteopenic. Lumbosacral spondylosis and scoliosis are observed. IMPRESSION: 1. A rectal tube projects over the pelvis. There is persistent gaseous distention of the colon which measures up to 10 cm. 2. The small bowel loops are normal in caliber. Assessment & Plan 86 year-old with Dementia who is s/p rectal tube placement for decompression of the sigmoid colon, CT scan showing dilated transverse colon up to 8.5cm and gas and fluid filled colon concerning for gastroenteritis vs ileus. Some mild thickening of distal sigmoid/rectum could be due to underdistention or proctitis. - Leukocytosis slightly improved today to 14K - liquid stool output in tube - KUB today showing slight increase in transverse colon distention at 10 cm - abdominal distention but soft, improved compared to yesterday, no pain vitals stable Plan: No acute surgical intervention required at this time Continue medical management Continue rectal tube for decompression Continue NPO Continue IV antibiotics Continue erythromycin as prokinetic will follow Dr. Gabriel has seen and examined patient, agrees with above.
--- NOTE | 2017-02-17 14:52 | Progress Note ---
Subjective Date of Service: Feb 17, 2017. Subjective Pt evaluation today including: conversation w/ patient, conversation w/ family , physical exam, lab review, review of studies, conversation w/ automotive internet sales consultant, review of inpatient medication list Pain: no pain PO Intake: NPO Voiding: no voiding problems no real change overnight KUB today shows transverse colon up to 10cm, up from 8.5cm labs reviewed, Cr stable, K is 3.6 updated family Problem List Medical Problems: (1) Bilateral pneumonia Status: Acute (2) Ileus Status: Acute (3) Laceration of toe of right foot Status: Acute (4) Lactic acidosis Status: Acute (5) Leukocytosis Status: Acute (6) Severe sepsis Status: Acute Review of Systems cannot review due to dementia Medications Current Inpatient Medications Medications (Trade) Dose Ordered Sig/Fidel Route Start Time Stop Time Status Last Admin Dose Admin Heparin Sodium (Porcine) (Heparin Sq 5000 Unit/0.5ml) 5,000 unit Q12 SQ 02/16/17 09:00 03/18/17 08:59 02/17/17 08:15 5,000 UNIT Potassium Chloride/Sodium Chloride 1,000 ml @ 75 mls/hr [id number] IV 02/15/17 20:45 03/17/17 20:44 02/17/17 12:16 75 MLS/HR Acetaminophen (Tylenol Tab) 650 mg Q4H PRN PO 02/15/17 18:00 03/17/17 17:59 Al Hydrox/Mg Hydrox/Simethicone (Maalox Max Susp) 15 ml Q4H PRN PO 02/15/17 18:00 03/17/17 17:59 Magnesium Hydroxide (Milk Of Magnesia Susp) 30 ml Q12H PRN PO 02/15/17 18:00 03/17/17 17:59 Ondansetron HCl (Zofran Inj) 4 mg Q6H PRN IV 02/15/17 18:00 03/17/17 17:59 Polyethylene (Miralax Powder Packet) 17 gm DAILY PRN PO 02/15/17 18:00 03/17/17 17:59 Levofloxacin 750 mg/Prmx 150 ml @ 100 mls/hr Q24H IV 02/15/17 21:00 02/22/17 20:59 02/16/17 21:51 100 MLS/HR Albuterol/ Ipratropium (Duoneb) 3 ml QIDR INH 02/15/17 20:00 03/17/17 19:59 02/17/17 11:42 3 ML Ascorbic Acid (Vitamin C Tab) 500 mg BID PO 02/15/17 21:00 03/17/17 20:59 02/17/17 08:19 500 MG Insulin Glargine (Lantus Solostar Pen) 30 units QAM SC 02/16/17 09:00 03/18/17 08:59 Future Hold Multivitamins/ Minerals (Multivitamin W/ Minerals Tab) 1 tab DAILY PO 02/16/17 09:00 03/18/17 08:59 02/17/17 08:18 1 TAB Potassium Chloride (Klor-Con M10) 10 meq BID PO 02/15/17 21:00 03/17/17 20:59 02/17/17 08:18 10 MEQ Sodium Chloride ([place] Nasal [place]) 2 sprays QID KARO 02/15/17 21:00 03/17/17 20:59 02/17/17 12:16 2 SPRAYS Senna/Docusate Sodium (Senokot S Tab) 1 tab BID PO 02/15/17 21:00 03/17/17 20:59 02/17/17 08:39 1 TAB Sertraline HCl (Zoloft Tab) 100 mg HS PO 02/15/17 21:00 03/17/17 20:59 02/16/17 21:55 100 MG Ferrous Sulfate (Feosol Tab) 325 mg DAILY PO 02/16/17 09:00 03/18/17 08:59 02/17/17 08:18 325 MG Polyethylene (Miralax Powder Packet) 17 gm BID PO 02/15/17 21:00 03/17/17 20:59 02/17/17 08:19 17 GM Insulin Aspart (novoLOG ASPART) SLIDING SCALE G... ACHS SC 02/15/17 21:00 03/17/17 20:59 Pantoprazole Sodium 40 mg/ Syringe 10 ml @ 5 mls/min DAILY@11 IV 02/16/17 11:00 03/18/17 10:59 02/17/17 12:16 5 MLS/MIN Glucose (Glucose 40% Gel) 15-30 GRAMS 15 GRAMS... UD PRN PO 02/15/17 20:15 03/17/17 20:14 Glucose (Glucose Chew Tab) 4-8 Tablets 4 Tabl... UD PRN PO 02/15/17 20:15 03/17/17 20:14 Dextrose (Dextrose 50% 50ML Syringe) 25-50ML OF 50% DW IV FOR... UD PRN IV 02/15/17 20:15 03/17/17 20:14 Glucagon (Glucagon Inj) 1 mg UD PRN SQ 02/15/17 20:15 03/17/17 20:14 Erythromycin Lactobionate 250 mg/Sodium Chloride 255 ml @ 250 mls/hr Q8H IV 02/16/17 14:00 02/26/17 13:59 02/17/17 14:34 250 MLS/HR Objective Vital Signs Date Time Temp Pulse Resp B/P (MAP) Pulse Ox O2 Delivery O2 Flow Rate FiO2 02/17/17 12:00 Room Air 02/17/17 11:42 74 18 97 Room Air 02/17/17 10:53 36.5 64 18 135/68 (90) 95 Room Air 02/17/17 08:00 Room Air 02/17/17 07:24 74 18 92 Room Air 02/17/17 07:01 36.6 77 18 114/67 (83) 99 Room Air 02/17/17 04:00 90 Room Air 02/17/17 03:52 36.4 77 18 103/62 (76) 92 Room Air 02/17/17 00:00 90 Room Air 02/16/17 23:37 36.9 70 18 108/54 (72) 91 Room Air 02/16/17 20:00 Room Air 02/16/17 19:55 86 18 90 Room Air 02/16/17 16:00 Room Air 02/16/17 15:01 74 18 91 Room Air Physical Exam General Appearance: WD/WN, no apparent distress Neck: supple, no adenopathy, no JVD, trachea midline Respiratory/Chest: chest non-tender, lungs clear, normal breath sounds, no respiratory distress, no accessory muscle use Cardiovascular: regular rate, rhythm, no edema, no gallop, no JVD, no murmur Abdomen: non tender, soft, no organomegaly, + abnormal bowel sounds, + distended Extremities: normal range of motion, non-tender, normal inspection, no pedal edema, no calf tenderness, pelvis stable Neurologic/Psychiatric: mallet cutter II-XII nml as tested, no motor/sensory deficits, alert, + disoriented Skin: normal color, warm/dry, no rash Laboratory Results Last 24 Hours Test 02/16/17 17:00 02/16/17 21:58 02/16/17 22:27 02/17/17 06:28 Bedside Glucose 95 mg/dl 94 mg/dl Stool Occult Blood POSITIVE White Blood Count 14.54 K/uL Red Blood Count 3.26 M/uL Hemoglobin 9.2 g/dL Hematocrit 30.4 % Mean Corpuscular Volume 93.3 fL Mean Corpuscular Hemoglobin 28.2 pg Mean Corpuscular Hemoglobin Concent 30.3 g/dl Platelet Count 254 K/uL Mean Platelet Volume 11.0 fL RDW Standard Deviation 50.2 fL RDW Coefficient of Variation 14.7 % Neutrophils % (Manual) 77.5 % Lymphocytes % (Manual) 5.2 % Monocytes % (Manual) 16.4 % Basophils % (Manual) 0.9 % Neutrophils # (Manual) 11.27 K/uL Total Absolute Neutrophils 11.27 K/uL Lymphocytes # (Manual) 0.76 K/uL Total Absolute Lymphocytes 0.76 K/uL Monocytes # (Manual) 2.38 K/uL Basophils # (Manual) 0.13 K/uL Polychromasia 1+ Hypochromasia PRESENT Sodium Level 138 mmol/L Potassium Level 3.6 mmol/L Chloride Level 102 mmol/L Carbon Dioxide Level 27 mmol/L Anion Gap 9.0 mmol/L Blood Urea Nitrogen 23 mg/dl Creatinine 1.22 mg/dl Est Creatinine Clear Calc Drug Dose 54.3 ml/min Estimated GFR () 61.8 Estimated GFR (Non- 53.4 BUN/Creatinine Ratio 18.7 Random Glucose 100 mg/dl Calcium Level 8.7 mg/dl Magnesium Level 1.9 mg/dl Test 02/17/17 07:26 02/17/17 11:40 Bedside Glucose 92 mg/dl 104 mg/dl Assessment and Plan 86 yo male with dementia, presents with abdominal distention, pain, diarrhea, dyspnea, leukocytosis and colonic distension on CT abdomen, filled with fluid and gas - Colonic distension: rectal tube placed on 02/[address] Glynn, decompressed KUB today shows increased transverse colon distension at 10cm, rectal tube in good position GI recommending erythromycin as prokinetic distension most likely chronic from chronic constipation bowel regimen, tube to stay in place, NPO C diff negative evaluated by surgery, no immediate surgical needs at this time discussed with family on 02/16, would not want surgical intervention will wait for GI to okay diet - Pneumonia: afebrile, mild reduction in leukocytosis down to 14k from 16k, continue Levaquin for total of 7 days - Hypokalemia: K is 3.6 today, continue 20mEq in IV fluid and 10mEq BID goal is to get up to 4.0 in setting of colonic distension and poor mobility - Severe dementia DNR continue IV fluids, potassium supplementation, GI will make recommendations for diet
[2017-02-17] MEDS: LEVOFLOXACIN / D5W 750 MG in PREMIXED IN D5W 150 ML IV SCH (20:31)
[2017-02-17] MEDS: SERTRALINE HCL 100 MG TAB PO SCH (20:32)
--- NOTE | 2017-02-17 21:45 | NUR ---
A: PT ALERT TO SELF. NO C/O PAIN. PT HAS CONTINUOUS IV FLUIDS INFUSING. RECEIVING IV ANTIBIOTICS. RECTAL TUBE INTACT. INCONTINENT OF URINE.MARINE ENGINEERING CONSULTANT INVOLVED WITH PT CARE. NA SITTING WITH PT TO PROVIDE SAFETY.
[2017-02-18] VITALS (11 sets, daily range): BP systolic 114–144; BP diastolic 58–75; PULSE 62–88; TEMP 36.8–37.1; O2SAT 92–100
--- NOTE | 2017-02-18 | NUR ---
A: PT ALERT TO SELF. REMAINS ON TELE MONITOR. PT RECEIVING CONTINUOUS IV FLUIDS/IV ANTIBIOTICS. RECTAL TUBE INTACT. INCONTINENT OF URINE. NPO FOR KUB IN AM. NA SITTING WITH PT FOR SAFETY.
[2017-02-18] MEDS: NSS + 20MEQ KCL 1000ML 1,000 ML IV SCH ×2 (02:03→15:25)
--- NOTE | 2017-02-18 04:00 | NUR ---
A: PT ALERT TO SELF. NO S/S OF PAIN. PT NPO FOR TEST THIS AM. RECAL TUBE INTACT/INCONTINENT OF URINE. PT RECEIVING CONTINUOUS IV FLUIDS/IV ANTIBIOTICS. MANAGER [employer] INVOLVED WITH PT CARE. WILL CONTINUE TO MONITOR.
[2017-02-18] MEDS: ERYTHROMYCIN IV 250 MG in SODIUM CHLORIDE 0.9% 250ML 250 ML IV SCH ×3 (06:28→22:00)
[2017-02-18 06:29] LABS: HEMATOCRIT 31.3 % (42-52); HEMOGLOBIN 9.3 g/dL (14.0-18.0); MEAN CELL VOLUME 92.1 fL (80-100); MEAN CORPUSCULAR HEMOGLOBIN 27.4 pg (25-34); MEAN CORPUSCULAR HGB CONC 29.7 g/dl (32-36); MEAN PLATELET VOLUME 10.8 fL (7.4-10.4); PLATELET COUNT 265 K/uL (130-400); RED CELL DISTRIBUTION WIDTH CV 14.8 % (11.5-14.5); RED CELL DISTRIBUTION WIDTH SD 50.8 fL (36.4-46.3); WHITE BLOOD COUNT 13.59 K/uL (4.8-10.8)
[2017-02-18] MEDS: ALBUT/IPRATROP 3MG/0.5MG NEB 3 ML VIAL INH SCH ×4 (06:55→20:01)
--- NOTE | 2017-02-18 08:00 | NUR ---
A: PT RESTING IN BED UPON AM ASSESSMENT. NO S/S OF PAIN OR DISCOMFORT. FALL/ASA PRECAUTIONS. 1:1 SUPERVISION. IVF RUNNING. 2L N.C. RECTAL TUBE INTACT;FLUSHED WITH 20ML OF NORMAL SALINE. PT INCONTINENT OF URINE;CHANGED NEEDED. TURNED/REPO Q2HRS. WILL CONTINUE TO MONITOR.
[2017-02-18] MEDS: FERROUS SULFATE 325 MG TAB PO SCH (08:18)
[2017-02-18] MEDS: CEROVITE ADV FORMULA TAB PO SCH (08:18)
[2017-02-18] MEDS: POLYETHYLENE (MIRALAX) 17 GM PACK PO SCH ×2 (08:18→20:24)
[2017-02-18] MEDS: POTASSIUM CHLORIDE 10 MEQ TABCR PO SCH ×2 (08:18→20:24)
[2017-02-18] MEDS: SODIUM CHLORIDE 0.65% NA SOLN 45 ML (OCEAN) NAE SCH ×4 (08:18→20:24)
[2017-02-18] MEDS: DOCUSATE SODIUM/SENNA 50/8.6MG TAB PO SCH ×2 (08:19→20:23)
[2017-02-18] MEDS: ASCORBIC ACID 500 MG TAB PO SCH ×2 (08:19→20:24)
[2017-02-18] MEDS: HEPARIN SOD 5000 UNIT/0.5 ML CARP SQ SCH ×2 (08:28→20:50)
[2017-02-18] MEDS: INSULIN ASPART 100 UNITS/ML 3 ML PEN SC SCH ×4 (08:28→20:23)
--- NOTE | 2017-02-18 08:28 | DIAGNOSTIC IMAGING REPORT ---
KUB CLINICAL HISTORY: 86 years-old Male presenting with ielus:please measure largest colon diameter. TECHNIQUE: Single supine view of the abdomen was obtained. COMPARISON: 02/17/[address] from 02/15/2017. FINDINGS: Rectal tube terminates in the sigmoid colon. Persistent diffuse gaseous distention of large bowel. Large bowel measures up to 10 cm, however, this is likely affected by magnification due to AP technique and is not reliable. No radiographic evidence of large bowel wall thickening. No gross pneumoperitoneum. Splenic arterial calcifications noted. No magalys radiographic evidence of nephrolithiasis. Degenerative changes of the spine. IMPRESSION: 1. Persistent diffuse gaseous distention of colon most consistent with colonic ileus. Electronically signed by: Reg Erazo M.D. 02/18/2017 8:27 AM Dictated Date/Time: 02/18/2017 8:24 AM
--- NOTE | 2017-02-18 12:30 | NUR ---
A: PM ASSESSMENT UNCHANGED. IVF RUNNING. R.A. RECTAL TUBE IN PLACE. 1:1 SUPERVISION. WILL CONTINUE TO MONITOR.
[2017-02-18] MEDS: PANTOprazole INJ 40 MG in SYRINGE 0 ML IV SCH (12:31)
--- NOTE | 2017-02-18 12:43 | Progress Note ---
Subjective Date of Service: Feb 18, 2017. Subjective Pt evaluation today including: conversation w/ patient, physical exam, lab review, review of studies, review of inpatient medication list Pain: no distress PO Intake: NPO Voiding: no voiding problems patient confused, laying in bed, no acute changes reviewed KUB, still with transverse colon at 10cm could have colonoscopy with decompression per GI note from 02/17 Problem List Medical Problems: (1) Bilateral pneumonia Status: Acute (2) Ileus Status: Acute (3) Laceration of toe of right foot Status: Acute (4) Lactic acidosis Status: Acute (5) Leukocytosis Status: Acute (6) Severe sepsis Status: Acute Review of Systems cannot review due to dementia Medications Current Inpatient Medications Medications (Trade) Dose Ordered Sig/Fidel Route Start Time Stop Time Status Last Admin Dose Admin Heparin Sodium (Porcine) (Heparin Sq 5000 Unit/0.5ml) 5,000 unit Q12 SQ 02/16/17 09:00 03/18/17 08:59 02/18/17 08:28 5,000 UNIT Potassium Chloride/Sodium Chloride 1,000 ml @ 75 mls/hr [id number] IV 02/15/17 20:45 03/17/17 20:44 02/18/17 02:03 75 MLS/HR Acetaminophen (Tylenol Tab) 650 mg Q4H PRN PO 02/15/17 18:00 03/17/17 17:59 Al Hydrox/Mg Hydrox/Simethicone (Maalox Max Susp) 15 ml Q4H PRN PO 02/15/17 18:00 03/17/17 17:59 Magnesium Hydroxide (Milk Of Magnesia Susp) 30 ml Q12H PRN PO 02/15/17 18:00 03/17/17 17:59 Ondansetron HCl (Zofran Inj) 4 mg Q6H PRN IV 02/15/17 18:00 03/17/17 17:59 Polyethylene (Miralax Powder Packet) 17 gm DAILY PRN PO 02/15/17 18:00 03/17/17 17:59 Levofloxacin 750 mg/Prmx 150 ml @ 100 mls/hr Q24H IV 02/15/17 21:00 02/22/17 20:59 02/17/17 20:31 100 MLS/HR Albuterol/ Ipratropium (Duoneb) 3 ml QIDR INH 02/15/17 20:00 03/17/17 19:59 02/18/17 11:10 3 ML Ascorbic Acid (Vitamin C Tab) 500 mg BID PO 02/15/17 21:00 03/17/17 20:59 02/18/17 08:19 500 MG Insulin Glargine (Lantus Solostar Pen) 30 units QAM SC 02/16/17 09:00 03/18/17 08:59 Future Hold Multivitamins/ Minerals (Multivitamin W/ Minerals Tab) 1 tab DAILY PO 02/16/17 09:00 03/18/17 08:59 02/18/17 08:18 1 TAB Potassium Chloride (Klor-Con M10) 10 meq BID PO 02/15/17 21:00 03/17/17 20:59 02/18/17 08:18 10 MEQ Sodium Chloride ([place] Nasal [place]) 2 sprays QID KARO 02/15/17 21:00 03/17/17 20:59 02/18/17 12:31 2 SPRAYS Senna/Docusate Sodium (Senokot S Tab) 1 tab BID PO 02/15/17 21:00 03/17/17 20:59 02/18/17 08:19 1 TAB Sertraline HCl (Zoloft Tab) 100 mg HS PO 02/15/17 21:00 03/17/17 20:59 02/17/17 20:32 100 MG Ferrous Sulfate (Feosol Tab) 325 mg DAILY PO 02/16/17 09:00 03/18/17 08:59 02/18/17 08:18 325 MG Polyethylene (Miralax Powder Packet) 17 gm BID PO 02/15/17 21:00 03/17/17 20:59 02/18/17 08:18 17 GM Insulin Aspart (novoLOG ASPART) SLIDING SCALE G... ACHS SC 02/15/17 21:00 03/17/17 20:59 02/18/17 08:28 1 UNITS Pantoprazole Sodium 40 mg/ Syringe 10 ml @ 5 mls/min DAILY@11 IV 02/16/17 11:00 03/18/17 10:59 02/18/17 12:31 5 MLS/MIN Glucose (Glucose 40% Gel) 15-30 GRAMS 15 GRAMS... UD PRN PO 02/15/17 20:15 03/17/17 20:14 Glucose (Glucose Chew Tab) 4-8 Tablets 4 Tabl... UD PRN PO 02/15/17 20:15 03/17/17 20:14 Dextrose (Dextrose 50% 50ML Syringe) 25-50ML OF 50% DW IV FOR... UD PRN IV 02/15/17 20:15 03/17/17 20:14 Glucagon (Glucagon Inj) 1 mg UD PRN SQ 02/15/17 20:15 03/17/17 20:14 Erythromycin Lactobionate 250 mg/Sodium Chloride 255 ml @ 250 mls/hr Q8H IV 02/16/17 14:00 02/26/17 13:59 02/18/17 06:28 250 MLS/HR Objective Vital Signs Date Time Temp Pulse Resp B/P (MAP) Pulse Ox O2 Delivery O2 Flow Rate FiO2 02/18/17 11:14 85 18 137/69 (91) 95 Room Air 02/18/17 11:10 81 18 95 Room Air 02/18/17 07:45 Nasal Cannula 2.0 02/18/17 07:05 37.1 69 18 135/75 (95) 100 2.0 02/18/17 06:55 69 18 97 Room Air 02/18/17 05:03 94 Room Air 02/18/17 04:01 36.8 62 24 115/67 (83) 93 Room Air 02/18/17 00:00 94 Room Air 02/17/17 23:46 36.9 71 22 153/79 (103) 95 Room Air 02/17/17 19:45 94 Room Air 02/17/17 19:29 36.6 75 20 123/83 (96) 94 02/17/17 19:27 76 18 95 Room Air 02/17/17 16:00 Room Air 02/17/17 15:20 71 18 95 Room Air Physical Exam General Appearance: WD/WN, no apparent distress ENT: normal ENT inspection, hearing grossly normal, pharynx normal Neck: supple, no adenopathy, no JVD, trachea midline Respiratory/Chest: chest non-tender, lungs clear, normal breath sounds, no respiratory distress, no accessory muscle use Cardiovascular: regular rate, rhythm, no edema, no gallop, no JVD, no murmur Abdomen: non tender, soft, no organomegaly, + abnormal bowel sounds (hypoactive ), + distended Extremities: normal range of motion, non-tender, normal inspection, no pedal edema, no calf tenderness, pelvis stable Neurologic/Psychiatric: 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, no motor/sensory deficits, alert, normal mood/affect, + disoriented Skin: normal color, warm/dry, no rash Laboratory Results Last 24 Hours Test 02/17/17 16:37 02/17/17 20:07 02/18/17 06:14 02/18/17 07:44 Bedside Glucose 168 mg/dl 139 mg/dl 160 mg/dl White Blood Count 13.59 K/uL Red Blood Count 3.40 M/uL Hemoglobin 9.3 g/dL Hematocrit 31.3 % Mean Corpuscular Volume 92.1 fL Mean Corpuscular Hemoglobin 27.4 pg Mean Corpuscular Hemoglobin Concent 29.7 g/dl RDW Standard Deviation 50.8 fL RDW Coefficient of Variation 14.8 % Platelet Count 265 K/uL Mean Platelet Volume 10.8 fL Test 02/18/17 11:37 Bedside Glucose 135 mg/dl Assessment and Plan 86 yo male with dementia, presents with abdominal distention, pain, diarrhea, dyspnea, leukocytosis and colonic distension on CT abdomen, filled with fluid and gas - Colonic distension: rectal tube placed on 02/[address] Glynn, decompressed sigmoid but transverse remained dilated KUB for several days shows transverse colon distension at 10cm, rectal tube in good position likely for colonoscopy decompression today GI recommending erythromycin as prokinetic distension most likely chronic from chronic constipation C diff negative evaluated by surgery, no immediate surgical needs at this time discussed with family on 02/16, would not want surgical intervention even if needed - Pneumonia: afebrile, mild reduction in leukocytosis down to 13k from 14k, continue Levaquin for total of 7 days, day #4 - Hypokalemia: K was 3.6 yesterday, continue 20mEq in IV fluid and 10mEq BID goal is to get up to 4.0 in setting of colonic distension and poor mobility repeat BMP tomorrow - Severe dementia DNR continue IV fluids, potassium supplementation, possible colonoscopy for decompression
--- NOTE | 2017-02-18 12:57 | NUR ---
Discharge planning. Patient unable to communicate, confused and lethargic. His is present at bedside. Plan remains for patient to return to the [facility] at discharge. No additional needs identified at this time. Case management to follow.
--- NOTE | 2017-02-18 13:38 | Surgery Progress Note ---
Surgery Progress Note Date of Service Feb 18, 2017. Subjective Post OP Day: HD # 3 patient confused, dementia, resting in bed and sleeping on encounter When asked if having any belly pain answers no clearly States he feels bloated when asked unable to obtain further ROS Objective Vital Signs: Date Time Temp Pulse Resp B/P (MAP) Pulse Ox O2 Delivery O2 Flow Rate FiO2 02/18/17 12:30 Room Air 02/18/17 11:14 85 18 137/69 (91) 95 Room Air 02/18/17 11:10 81 18 95 Room Air 02/18/17 07:45 Nasal Cannula 2.0 02/18/17 07:05 37.1 69 18 135/75 (95) 100 2.0 02/18/17 06:55 69 18 97 Room Air 02/18/17 05:03 94 Room Air 02/18/17 04:01 36.8 62 24 115/67 (83) 93 Room Air 02/18/17 00:00 94 Room Air 02/17/17 23:46 36.9 71 22 153/79 (103) 95 Room Air 02/17/17 19:45 94 Room Air 02/17/17 19:29 36.6 75 20 123/83 (96) 94 02/17/17 19:27 76 18 95 Room Air 02/17/17 16:00 Room Air 02/17/17 15:20 71 18 95 Room Air General Appearance: WD/WN, no apparent distress Head: normocephalic, atraumatic Neck: trachea midline Respiratory/Chest: no respiratory distress, no accessory muscle use Abdomen: non tender, soft, + distended (moderate distention today, tympanic, no peritonitis or rigidity) Laboratory Results: Results Past 24 Hours Test 02/17/17 16:37 02/17/17 20:07 02/18/17 06:14 02/18/17 07:44 Range/Units Bedside Glucose 168 139 160 70-99 mg/dl White Blood Count 13.59 4.8-10.8 K/uL Red Blood Count 3.40 4.7-6.1 M/uL Hemoglobin 9.3 14.0-18.0 g/dL Hematocrit 31.3 42-52 % Mean Corpuscular Volume 92.1 80-100 fL Mean Corpuscular Hemoglobin 27.4 25-34 pg Mean Corpuscular Hemoglobin Concent 29.7 32-36 g/dl RDW Standard Deviation 50.8 36.4-46.3 fL RDW Coefficient of Variation 14.8 11.5-14.5 % Platelet Count 265 130-400 K/uL Mean Platelet Volume 10.8 7.4-10.4 fL Test 02/18/17 11:37 Range/Units Bedside Glucose 135 70-99 mg/dl Assessment & Plan 86 year-old with Dementia who is s/p rectal tube placement for decompression of the sigmoid colon, CT scan showing dilated transverse colon up to 8.5cm and gas and fluid filled colon concerning for gastroenteritis vs ileus. Some mild thickening of distal sigmoid/rectum could be due to underdistention or proctitis. - Leukocytosis slightly improved today to 13.59K - liquid stool output in tube, minimal - KUB showing persistent moderate distention of transverse colon up to 10 cm - abdominal distention increased today but soft, no pain - vitals are stable Plan: No acute surgical intervention required at this time Continue medical management Continue rectal tube for decompression Continue IV antibiotics Continue erythromycin as prokinetic May need further colonoscopic decompression will follow Dr. Gabriel to see patient later today Re-evaluated at 4:[address] Gabriel rectal tube flushed by nursing staff, no air or liquid output. present in room at this time Patient is DNR and does not want any surgical intervention Rectal tube may need to be replaced/repositioned or patient may need further decompression. Our services signing off at this time, thank you for consultation , call with concerns or questions Dr. Gabriel has seen and examined patient, agrees with above
--- NOTE | 2017-02-18 16:00 | NUR ---
A: Pt in bed. Resting. Easily awakens with name. Oriented x1. Fluids infusing into left arm. Rectal tube in place. Afib on monitor. See EMR for full assessment. Will continue to monitor. 1:1 by staff.
--- NOTE | 2017-02-18 16:25 | Progress Note ---
Progress Note Date of Service Feb 18, 2017. Progress Note Attg add: I reviewed chart and labs, interviewed and examined pt. Pt with persistent abd distention, but rober this well. He has no pain, and is rober full liquids. Per nurses notes, he is stooling. Imaging shows persistent intestinal dilation. 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 Will consider promotility agents, cont diet, and d/c rectal tube and follow. Would only consider endoscopic decompression if he develops abdominal pain.
--- NOTE | 2017-02-18 16:35 | Gastroenterology Progress Note ---
Progress Note Date of Service: Feb 18, 2017 Subjective Pt evaluation today including: conversation w/ patient, physical exam, chart review, lab review, review of studies, review of inpatient medication list Mr. Bryan is an 86 yr old male admitted on 02/[address] on arrival with 8.6cm transverse colon distention. Pt denies pain, but has dementia. Today's X-ray with 10 cm max colon diameter. WBC 13.59. C-diff and blood cultures (-). Most recent BM yesterday, moderate, loose. Review of Systems Constitutional: No fever Respiratory: No cough Cardiac: No chest pain Abdomen: + see HPI, + pain (no indication of chest pain), No nausea, No vomiting Male : No dysuria Neuro: + see HPI, + memory loss Endo: No fatigue Skin: No rash Medications Current Inpatient Medications Medications (Trade) Dose Ordered Sig/Fidel Route Start Time Stop Time Status Last Admin Dose Admin Heparin Sodium (Porcine) (Heparin Sq 5000 Unit/0.5ml) 5,000 unit Q12 SQ 02/16/17 09:00 03/18/17 08:59 02/18/17 08:28 5,000 UNIT Potassium Chloride/Sodium Chloride 1,000 ml @ 75 mls/hr [id number] IV 02/15/17 20:45 03/17/17 20:44 02/18/17 15:25 75 MLS/HR Acetaminophen (Tylenol Tab) 650 mg Q4H PRN PO 02/15/17 18:00 03/17/17 17:59 Al Hydrox/Mg Hydrox/Simethicone (Maalox Max Susp) 15 ml Q4H PRN PO 02/15/17 18:00 03/17/17 17:59 Magnesium Hydroxide (Milk Of Magnesia Susp) 30 ml Q12H PRN PO 02/15/17 18:00 03/17/17 17:59 Ondansetron HCl (Zofran Inj) 4 mg Q6H PRN IV 02/15/17 18:00 03/17/17 17:59 Polyethylene (Miralax Powder Packet) 17 gm DAILY PRN PO 02/15/17 18:00 03/17/17 17:59 Levofloxacin 750 mg/Prmx 150 ml @ 100 mls/hr Q24H IV 02/15/17 21:00 02/22/17 20:59 11/28/17 20:31 100 MLS/HR Albuterol/ Ipratropium (Duoneb) 3 ml QIDR INH 02/15/17 20:00 03/17/17 19:59 02/18/17 14:46 3 ML Ascorbic Acid (Vitamin C Tab) 500 mg BID PO 02/15/17 21:00 03/17/17 20:59 02/18/17 08:19 500 MG Insulin Glargine (Lantus Solostar Pen) 30 units QAM SC 02/16/17 09:00 03/18/17 08:59 Future Hold Multivitamins/ Minerals (Multivitamin W/ Minerals Tab) 1 tab DAILY PO 02/16/17 09:00 03/18/17 08:59 02/18/17 08:18 1 TAB Potassium Chloride (Klor-Con M10) 10 meq BID PO 02/15/17 21:00 03/17/17 20:59 02/18/17 08:18 10 MEQ Sodium Chloride ([place] Nasal [place]) 2 sprays QID KARO 02/15/17 21:00 03/17/17 20:59 02/18/17 12:31 2 SPRAYS Senna/Docusate Sodium (Senokot S Tab) 1 tab BID PO 02/15/17 21:00 03/17/17 20:59 02/18/17 08:19 1 TAB Sertraline HCl (Zoloft Tab) 100 mg HS PO 02/15/17 21:00 03/17/17 20:59 02/17/17 20:32 100 MG Ferrous Sulfate (Feosol Tab) 325 mg DAILY PO 02/16/17 09:00 03/18/17 08:59 02/18/17 08:18 325 MG Polyethylene (Miralax Powder Packet) 17 gm BID PO 02/15/17 21:00 03/17/17 20:59 02/18/17 08:18 17 GM Insulin Aspart (novoLOG ASPART) SLIDING SCALE G... ACHS SC 02/15/17 21:00 03/17/17 20:59 02/18/17 08:28 1 UNITS Pantoprazole Sodium 40 mg/ Syringe 10 ml @ 5 mls/min DAILY@11 IV 02/16/17 11:00 03/18/17 10:59 02/18/17 12:31 5 MLS/MIN Glucose (Glucose 40% Gel) 15-30 GRAMS 15 GRAMS... UD PRN PO 02/15/17 20:15 03/17/17 20:14 Glucose (Glucose Chew Tab) 4-8 Tablets 4 Tabl... UD PRN PO 02/15/17 20:15 03/17/17 20:14 Dextrose (Dextrose 50% 50ML Syringe) 25-50ML OF 50% DW IV FOR... UD PRN IV 02/15/17 20:15 03/17/17 20:14 Glucagon (Glucagon Inj) 1 mg UD PRN SQ 02/15/17 20:15 03/17/17 20:14 Erythromycin Lactobionate 250 mg/Sodium Chloride 255 ml @ 250 mls/hr Q8H IV 02/16/17 14:00 02/26/17 13:59 02/18/17 13:26 250 MLS/HR Objective Vital Signs Date Time Temp Pulse Resp B/P (MAP) Pulse Ox O2 Delivery O2 Flow Rate FiO2 02/18/17 14:46 83 18 94 Room Air 02/18/17 12:30 Room Air 02/18/17 11:14 85 18 137/69 (91) 95 Room Air 02/18/17 11:10 81 18 95 Room Air 02/18/17 07:45 Nasal Cannula 2.0 02/18/17 07:05 37.1 69 18 135/75 (95) 100 2.0 02/18/17 06:55 69 18 97 Room Air 02/18/17 05:03 94 Room Air 02/18/17 04:01 36.8 62 24 115/67 (83) 93 Room Air 02/18/17 00:00 94 Room Air 02/17/17 23:46 36.9 71 22 153/79 (103) 95 Room Air 02/17/17 19:45 94 Room Air 02/17/17 19:29 36.6 75 20 123/83 (96) 94 02/17/17 19:27 76 18 95 Room Air Physical Exam General Appearance: no apparent distress Neck: no JVD Respiratory/Chest: + crackles (few crackles at bases) Cardiovascular: regular rate, rhythm, no JVD, no murmur Abdomen: soft Extremities: non-tender Neurologic/Psych: alert, normal mood/affect, oriented x 3 Skin: no jaundice, warm/dry Laboratory Results Last 24 Hours Test 02/17/17 16:37 02/17/17 20:07 02/18/17 06:14 02/18/17 07:44 Bedside Glucose 168 mg/dl 139 mg/dl 160 mg/dl White Blood Count 13.59 K/uL Red Blood Count 3.40 M/uL Hemoglobin 9.3 g/dL Hematocrit 31.3 % Mean Corpuscular Volume 92.1 fL Mean Corpuscular Hemoglobin 27.4 pg Mean Corpuscular Hemoglobin Concent 29.7 g/dl RDW Standard Deviation 50.8 fL RDW Coefficient of Variation 14.8 % Platelet Count 265 K/uL Mean Platelet Volume 10.8 fL Test 02/18/17 11:37 Bedside Glucose 135 mg/dl Assessment and Plan Mr. Bryan is an 86 yr old with colonic distention. C-diff is negative. He appears comfortable. Would question if this is a chronically distended colon from chronic constipation. Plan: 1. Continue the e-mycinzaidax. 2. Please maintain K >4.0. 3. DC rectal tube 4. Enemas followed by Chris x 2 today, early tomorrow morning as well. 5. Full liquids po. 6. KUB early tomorrow morning. 7. Will continue to follow closely.
[2017-02-18] MEDS ORDERED: TAP WATER ENEMA PR ONE ×2 (17:15→20:15)
[2017-02-18] MEDS ORDERED: BISACODYL 10 MG SUPP PR ONE ×2 (17:15→20:15)
--- NOTE | 2017-02-18 20:00 | NUR ---
A: Pt still resting in bed. 1:1 present. Had multiple loose BMs after enema and suppository. Abdomen distended. Denies any pain or signs of distress. Assessment otherwise unchanged.
[2017-02-18] MEDS: SERTRALINE HCL 100 MG TAB PO SCH (20:23)
[2017-02-18] MEDS: LEVOFLOXACIN / D5W 750 MG in PREMIXED IN D5W 150 ML IV SCH (20:23)
[2017-02-19] VITALS (9 sets, daily range): BP systolic 109–130; BP diastolic 50–75; PULSE 66–91; TEMP 36.6–36.8; O2SAT 92–94
--- NOTE | 2017-02-19 | NUR ---
A: Assessment completed see EMR. Pt is A&Ox1 and is a turn and reposition in the room. Pt admitted with ileus, colitis, and pneumonia. Pt has no complaints at this time. Vitals WNL. Pt presents with atrial fibrillation on the monitor. +1 pitting edema noted to pts BLE. PT is currently on NSS+20K running at 75mL/hr into his left forearm. Pt to have a KUB 02/19/17. ABD is distended and firm. Pt placed on a bowel regimen see eMAR for intervention. Pt is from the [facility] and plans to return there upon discharge. No discharge date at this time.
--- NOTE | 2017-02-19 04:00 | NUR ---
A: Assessment completed see EMR. Pt is resting at this time with no complaints. Pt presents with atrial fibrillation on the monitor. Vitals WNL. Call ferguson within reach, pt encouraged to ring and bed alarm in use.
[2017-02-19] MEDS: NSS + 20MEQ KCL 1000ML 1,000 ML IV SCH (05:49)
[2017-02-19] MEDS ORDERED: TAP WATER ENEMA PR ONE (06:15)
[2017-02-19] MEDS: ERYTHROMYCIN IV 250 MG in SODIUM CHLORIDE 0.9% 250ML 250 ML IV SCH ×3 (06:15→22:58)
[2017-02-19] MEDS ORDERED: BISACODYL 10 MG SUPP PR ONE ×2 (06:15→11:45)
[2017-02-19] MEDS: INSULIN ASPART 100 UNITS/ML 3 ML PEN SC SCH ×4 (06:30→21:06)
[2017-02-19] MEDS: ALBUT/IPRATROP 3MG/0.5MG NEB 3 ML VIAL INH SCH ×2 (07:33→11:24)
--- NOTE | 2017-02-19 07:55 | DIAGNOSTIC IMAGING REPORT ---
KUB CLINICAL HISTORY: Colonic distention. Colitis. Final is: 4 AP supine abdominal radiographs are compared to study dated 02/18/2017 and correlated with abdominal CT dated 02/15/2017. The rectal tube has been removed. There is increasing gaseous distention of the colon which measures up to 13.5 cm. The small bowel loops are normal in caliber. Phleboliths are observed in the pelvis. The skeletal structures are osteopenic. Lumbosacral spondylosis and scoliosis are observed. IMPRESSION: 1. A rectal tube has been removed and there is increasing gaseous distention of the colon as compared to yesterday 2. The small bowel loops are normal in caliber. Electronically signed by: Alberto Beltran M.D. 02/19/2017 7:54 AM Dictated Date/Time: 02/19/2017 7:52 AM
--- NOTE | 2017-02-19 08:00 | NUR ---
A: Patient alert to person only, sleepy today. No current complaints. No overt s/s of pain noted. VSS, AFib on monitor with occasional PVC's noted. NSS with 20 meq KCL infusing at 75 ml/hr without difficulty. Abdomen distended. KUB completed, shows increasing gaseous distention. GI to order enema for later today and will recheck KUB. No new potassium level, GI will order as Potassium should remain above 4. BSG stable at 136. Will continue to monitor patients overall status.
[2017-02-19] MEDS: SODIUM CHLORIDE 0.65% NA SOLN 45 ML (OCEAN) NAE SCH ×4 (08:50→20:56)
[2017-02-19] MEDS: FERROUS SULFATE 325 MG TAB PO SCH (08:50)
[2017-02-19] MEDS: ASCORBIC ACID 500 MG TAB PO SCH ×2 (08:50→20:58)
[2017-02-19] MEDS: DOCUSATE SODIUM/SENNA 50/8.6MG TAB PO SCH ×2 (08:51→20:58)
[2017-02-19] MEDS: POTASSIUM CHLORIDE 10 MEQ TABCR PO SCH ×2 (08:51→20:57)
[2017-02-19] MEDS: POLYETHYLENE (MIRALAX) 17 GM PACK PO SCH ×2 (08:51→20:57)
[2017-02-19] MEDS: CEROVITE ADV FORMULA TAB PO SCH (08:52)
[2017-02-19] MEDS: HEPARIN SOD 5000 UNIT/0.5 ML CARP SQ SCH ×2 (09:00→21:06)
[2017-02-19] MEDS: PANTOprazole INJ 40 MG in SYRINGE 0 ML IV SCH (10:00)
--- NOTE | 2017-02-19 12:00 | NUR ---
A: Patient resting quietly in bed, no overt s/s of pain noted. Abdomen distended, tap water enema administered, suppository administered. KUB to be repeated. VSS, remains AFib on monitor. NSS with 20 meq KCL infusing at 75 ml/hr without difficulty. BSG stable at 148. Will continue to monitor patients overall status.
--- NOTE | 2017-02-19 12:54 | Hospitalist Progress Note ---
Hospitalist Progress Note Date of Service Feb 19, 2017. Subjective Pt evaluation today including: conversation w/ patient, physical exam, chart review, lab review, review of studies Pain: none PO Intake: Fair Voiding: no voiding problems The patient was seen and examined this morning. Pt reports he has no complaints , denies abdominal pain, pressure, nausea, although likely dementia doesn't allow for an adequate ROS. He is very sleepy during the conversation and needs to be woken up several times but he is pleasant. Pt tolerated a full liquid diet for breakfast today. ROS: No fever, chills, sweat, chest pain, flutter, headache, lightheadedness, weakness. Negative other that listed above. Objective Vital Signs Date Time Temp Pulse Resp B/P (MAP) Pulse Ox O2 Delivery O2 Flow Rate FiO2 02/19/17 12:01 36.8 82 121/65 (83) 93 02/19/17 12:01 92 Room Air 02/19/17 11:24 75 18 93 Room Air 02/19/17 08:15 36.6 70 20 127/75 (92) 92 Room Air 02/19/17 08:00 92 Room Air 02/19/17 04:47 36.6 76 20 119/50 (73) 93 Room Air 02/19/17 04:00 Room Air 02/19/17 00:00 Room Air 02/18/17 23:22 36.8 76 18 114/58 (76) 95 Room Air 02/18/17 20:01 88 18 95 Room Air 02/18/17 20:00 Room Air 02/18/17 19:39 37.0 84 18 144/72 (96) 92 Room Air 02/18/17 16:00 Room Air 02/18/17 14:46 83 18 94 Room Air Physical Exam General Appearance: WD/WN, no apparent distress, + obese, + pertinent finding ( sleeply, awakens easily, pleasantly confused) Eyes: PERRL, EOMI ENT: hearing grossly normal, pharynx normal, + pertinent finding (MM slightly dry, pudding residue in mouth) Neck: supple, no JVD Respiratory/Chest: no respiratory distress, no accessory muscle use, + pertinent finding (on RA, mild crackles at bases bilaterally. No adventitious breath sounds. ) Cardiovascular: regular rate, rhythm, no murmur Abdomen: + abnormal bowel sounds (hypoactive), + pertinent finding (+ Distension, +tympany throughout, no pain with palpation. No rebound tenderness or guarding.) Extremities: non-tender, no pedal edema Neurologic/Psychiatric: alert (when awake, sleepy through most of exam) Laboratory Results Last 24 Hours Test 02/18/17 16:29 02/18/17 20:16 02/19/17 07:05 02/19/17 11:22 Bedside Glucose 137 mg/dl 142 mg/dl 136 mg/dl 148 mg/dl Assessment and Plan 86 yo male with dementia, presents with abdominal distention, pain, diarrhea, dyspnea, leukocytosis and colonic distension on CT abdomen, filled with fluid and gas Colonic distension: - rectal tube placed on 02/[address] Glynn, decompressed sigmoid but transverse remained dilated - KUB for several days shows transverse colon distension at 10cm - tube was removed on 02/18 - KUB repeat shows increased dilation of bowel loops today - GI did not do decompression with colonoscopy, instead using enema decompression technique - GI recommending erythromycin as prokinetic - distension most likely chronic from chronic constipation - C diff negative - evaluated by surgery, no immediate surgical needs at this time - per attending family would not want surgical intervention even if needed Pneumonia: afebrile, mild reduction in leukocytosis down to 13k from 14k, continue Levaquin for total of 7 days, day #5 Hypokalemia: K was 3.6 on 02/17, continue 20mEq in IV fluid and 10mEq BID - Follow am PRP tomorrow goal is to get up to 4.0 in setting of colonic distension and poor mobility Severe dementia - Pt is pleasantly confused, answers questions but does not follow commands DVT ppx: CODE STATUS: DNR Disposition: From the [facility], dementia unit
[2017-02-19] MEDS ORDERED: ALBUT/IPRATROP 3MG/0.5MG NEB 3 ML VIAL INH PRN (13:00)
--- NOTE | 2017-02-19 13:16 | DIAGNOSTIC IMAGING REPORT ---
KUB HISTORY: Abdominal distention with ileus. Follow-up study. ileus, please measure colon distention COMPARISON: KUB 02/19/2017 at 7:40 AM FINDINGS: Gaseous distention of the colon is again seen with a loop in the left upper abdomen measuring up to 13.6 cm, previously 13.8. Gas-filled loops of small bowel are also seen measuring up to 3.5 cm compatible with ileus. Cecum/ascending colon measures up to 14 cm transversely. Vascular calcifications noted. No definite pneumatosis. There is no organomegaly. No renal calculi. No ureteral calculi. No pneumoperitoneum or pneumatosis. No fracture. Multilevel degenerative changes of the spine, hips and pelvis. The bones appear mildly demineralized. IMPRESSION: Persistent dilated large bowel measures up to 14 cm transversely which appears unchanged from comparison. Mildly dilated loops of small bowel are also seen compatible with ileus. Electronically signed by: Bill Pugh M.D. 02/19/2017 1:15 PM Dictated Date/Time: 02/19/2017 1:11 PM
[2017-02-19 15:05] LABS: CALCIUM 8.5 mg/dl (8.5-10.1); CREATININE 1.08 mg/dl (0.60-1.40); POTASSIUM 3.3 mmol/L (3.5-5.1)
[2017-02-19] MEDS ORDERED: POTASSIUM CHLORIDE 10 MEQ TABCR PO STA (15:24)
--- NOTE | 2017-02-19 16:00 | NUR ---
A/ID: Patient from [facility] where he lived in the dementia unit. Admitting diagnosis of ileus, colitis, and pneumonia. He is drowsy but arousable, alert and oriented to person only. Denies pain or shortness of breath. Lungs are diminished, room air. Afib on monitor rate 80s. Radial and pedal pulses palpable bilaterally. Abdomen is firm, very distended, tender. He is going to GI/ENDO for decompression. Last documented BM 02/19/17. He is leaving to go to GI/ENDO for stomach decompression. Bladder scanned before he left the floor and it showed 15mL as he was just incontinent of large amount of urine. Therefore, unable to perform UA straight cath at this time. Will continue to monitor. IV intact with NSS + 20mEq KCl @ 75mL/hr. Ointment applied to sacrum. Please see EMR for further assessment documentation. All needs met, bed alarm on, call ferguson within reach.
--- NOTE | 2017-02-19 16:05 | History & Physical Bridge Note ---
H&P Re-Evaluation Bridge Note: I have examined the patient, reviewed the History & Physical and in the interval since the performance of the History & Physical I have noted the following changes of clinical significance: Progressive abd distention, altered mental status
--- NOTE | 2017-02-19 16:15 | DIAGNOSTIC IMAGING REPORT ---
CHEST ONE VIEW PORTABLE HISTORY: Lethargic. r/o pneumonia COMPARISON: Chest 09/03/2016. FINDINGS: No pneumothorax. The heart remains mild enlarged. Mild diffuse perihilar interstitial thickening. Patchy bibasilar airspace opacities and small bilateral pleural effusions. IMPRESSION: 1. Cardiomegaly with mild interstitial pulmonary edema and small bilateral pleural effusions. 2. Hazy bibasilar airspace opacities have slightly progressed and could represent atelectasis or pneumonia. Electronically signed by: Terrance Brandon M.D. 02/19/2017 4:13 PM Dictated Date/Time: 02/19/2017 4:11 PM
[2017-02-19] MEDS ORDERED: MINERAL OIL 30 ML UDC ONE (16:20)
[2017-02-19] MEDS ORDERED: PHENYLEPHRINE HCL INJ 10 MG/ML VIAL ONE (17:06)
[2017-02-19] MEDS ORDERED: LIDOCAINE HCL 2% 2 ML VIAL (20MG/ML) ONE (17:06)
[2017-02-19] MEDS ORDERED: PROPOFOL IV EMULSION 10 MG/ML 20 ML VIAL IV ONE (17:06)
--- NOTE | 2017-02-19 17:18 | Anesthesiology Progress Note ---
Anesthesia Post Op Note Date & Time Feb 19, 2017 at 17:18 Vital Signs Pain Intensity: 0.0 Vital Signs Past 12 Hours Date Time Temp Pulse Resp B/P (MAP) Pulse Ox O2 Delivery O2 Flow Rate FiO2 02/19/17 16:09 36.6 91 20 115/58 (77) 93 Room Air 02/19/17 15:27 36.6 91 20 130/71 (90) 93 Room Air 02/19/17 12:01 36.8 82 121/65 (83) 93 02/19/17 12:01 92 Room Air 02/19/17 11:24 75 18 93 Room Air 02/19/17 08:15 36.6 70 20 127/75 (92) 92 Room Air 02/19/17 08:00 92 Room Air Notes Mental Status: see Notes Pt Amnestic to Procedure: Yes Nausea / Vomiting: adequately controlled Pain: adequately controlled Airway Patency, RR, SpO2: stable & adequate BP & HR: stable & adequate Hydration State: stable & adequate Anesthetic Complications: no major complications apparent patient has dementia
[2017-02-19] MEDS ORDERED: EpHEDrine SULFATE INJ 50 MG/ML AMP IV PRN (17:30)
[2017-02-19] MEDS ORDERED: ATROPINE SULFATE 0.1 MG/ML 5ML SYR IV PRN (17:30)
--- NOTE | 2017-02-19 19:42 | DIAGNOSTIC IMAGING REPORT ---
KUB HISTORY: EVALUATE ILEUS COMPARISON: KUB 02/19/2017. FINDINGS: Significant improvement in the gaseous distention of the colon. The colon is not significantly distended at this time. Moderate gaseous distention of the stomach. No dilated loops of small bowel. No renal calculi. No ureteral calculi. No pneumoperitoneum or pneumatosis. IMPRESSION: 1. Significant improvement/resolution of the distended gas-filled colon. 2. Moderate gaseous distention of the stomach. Electronically signed by: Terrance Brandon M.D. 02/19/2017 7:40 PM Dictated Date/Time: 02/19/2017 7:39 PM
--- NOTE | 2017-02-19 20:00 | NUR ---
A: 2 different nurses attempted to obtain urine specimen by straight catheterization and coude catheterization. Unable to obtain.
[2017-02-19] MEDS: LEVOFLOXACIN / D5W 750 MG in PREMIXED IN D5W 150 ML IV SCH (20:56)
[2017-02-19] MEDS: SERTRALINE HCL 100 MG TAB PO SCH (20:58)
--- NOTE | 2017-02-20 | NUR ---
A: Assessment completed see EMR. Pt is A&Ox1 and is a turn and reposition in the room. Pt admitted with ileus, colitis, and pneumonia. Pt has no complaints at this time. Vitals WNL. Pt presents with atrial fibrillation on the monitor. +1 pitting edema noted to pts BLE. PT is currently on NSS+20K running at 75mL/hr into his left forearm. ABD is distended and firm. Pt placed on a bowel regimen see eMAR for intervention. Pt is from the [facility] and plans to return there upon discharge. No discharge date at this time.
[2017-02-20 04:00] VITALS: BP 73/41; PULSE 81; TEMP 36.7; O2SAT 96
[2017-02-20 05:10] VITALS: BP 115/61; PULSE 71
[2017-02-20] MEDS: ERYTHROMYCIN IV 250 MG in SODIUM CHLORIDE 0.9% 250ML 250 ML IV SCH ×3 (05:46→22:05)
[2017-02-20] MEDS: INSULIN ASPART 100 UNITS/ML 3 ML PEN SC SCH ×4 (06:30→20:44)
[2017-02-20 06:33] LABS: CALCIUM 8.6 mg/dl (8.5-10.1); CREATININE 1.11 mg/dl (0.60-1.40); POTASSIUM 3.8 mmol/L (3.5-5.1)
[2017-02-20] MEDS: NSS + 20MEQ KCL 1000ML 1,000 ML IV SCH ×3 (07:25→22:05)
[2017-02-20] MEDS: POTASSIUM CHLORIDE 10 MEQ TABCR PO SCH ×2 (08:58→20:22)
[2017-02-20] MEDS: ASCORBIC ACID 500 MG TAB PO SCH ×2 (08:58→20:22)
[2017-02-20] MEDS: FERROUS SULFATE 325 MG TAB PO SCH (08:58)
[2017-02-20] MEDS: DOCUSATE SODIUM/SENNA 50/8.6MG TAB PO SCH ×2 (08:58→20:22)
[2017-02-20] MEDS: CEROVITE ADV FORMULA TAB PO SCH (08:58)
[2017-02-20] MEDS: POLYETHYLENE (MIRALAX) 17 GM PACK PO SCH ×2 (08:59→20:23)
[2017-02-20] MEDS: SODIUM CHLORIDE 0.65% NA SOLN 45 ML (OCEAN) NAE SCH ×4 (08:59→20:21)
[2017-02-20] MEDS: PANTOprazole SOD 40 MG TAB PO SCH (08:59)
[2017-02-20] MEDS: HEPARIN SOD 5000 UNIT/0.5 ML CARP SQ SCH ×2 (09:06→20:31)
--- NOTE | 2017-02-20 09:55 | Gastroenterology Progress Note ---
Progress Note Date of Service: Feb 20, 2017 Subjective Pt evaluation today including: conversation w/ patient, physical exam, chart review, lab review, review of studies, review of inpatient medication list Mr. Bryan is an 86 yr old male who was admitted with abd pain, colonic ileus. Underwent colonoscopy decompression yesterday with KUB following suggesting resolution of distention. Today, continues confused, weak. No evidence of discomfort on palpation of abd today. BS hyperactive throughout Review of Systems Constitutional: + weakness, + problem reported (continued confusion), No fever Respiratory: No cough unable to obtain ROS Medications Current Inpatient Medications Medications (Trade) Dose Ordered Sig/Fidel Route Start Time Stop Time Status Last Admin Dose Admin Heparin Sodium (Porcine) (Heparin Sq 5000 Unit/0.5ml) 5,000 unit Q12 SQ 02/16/17 09:00 03/18/17 08:59 02/20/17 09:06 5,000 UNIT Potassium Chloride/Sodium Chloride 1,000 ml @ 75 mls/hr [id number] IV 02/15/17 20:45 03/17/17 20:44 02/20/17 08:08 75 MLS/HR Acetaminophen (Tylenol Tab) 650 mg Q4H PRN PO 02/15/17 18:00 03/17/17 17:59 Al Hydrox/Mg Hydrox/Simethicone (Maalox Max Susp) 15 ml Q4H PRN PO 02/15/17 18:00 03/17/17 17:59 Magnesium Hydroxide (Milk Of Magnesia Susp) 30 ml Q12H PRN PO 02/15/17 18:00 03/17/17 17:59 Ondansetron HCl (Zofran Inj) 4 mg Q6H PRN IV 02/15/17 18:00 03/17/17 17:59 Polyethylene (Miralax Powder Packet) 17 gm DAILY PRN PO 02/15/17 18:00 03/17/17 17:59 Levofloxacin 750 mg/Prmx 150 ml @ 100 mls/hr Q24H IV 02/15/17 21:00 02/22/17 20:59 02/19/17 20:56 100 MLS/HR Ascorbic Acid (Vitamin C Tab) 500 mg BID PO 02/15/17 21:00 03/17/17 20:59 02/20/17 08:58 500 MG Insulin Glargine (Lantus Solostar Pen) 30 units QAM SC 02/16/17 09:00 03/18/17 08:59 Future Hold Multivitamins/ Minerals (Multivitamin W/ Minerals Tab) 1 tab DAILY PO 02/16/17 09:00 03/18/17 08:59 02/20/17 08:58 1 TAB Potassium Chloride (Klor-Con M10) 10 meq BID PO 02/15/17 21:00 03/17/17 20:59 02/20/17 08:58 10 MEQ Sodium Chloride ([place] Nasal [place]) 2 sprays QID KARO 02/15/17 21:00 03/17/17 20:59 02/20/17 08:59 2 SPRAYS Senna/Docusate Sodium (Senokot S Tab) 1 tab BID PO 02/15/17 21:00 03/17/17 20:59 02/20/17 08:58 1 TAB Sertraline HCl (Zoloft Tab) 100 mg HS PO 02/15/17 21:00 03/17/17 20:59 02/19/17 20:58 100 MG Ferrous Sulfate (Feosol Tab) 325 mg DAILY PO 02/16/17 09:00 03/18/17 08:59 02/20/17 08:58 325 MG Polyethylene (Miralax Powder Packet) 17 gm BID PO 02/15/17 21:00 03/17/17 20:59 02/20/17 08:59 17 GM Insulin Aspart (novoLOG ASPART) SLIDING SCALE G... ACHS SC 02/15/17 21:00 03/17/17 20:59 02/19/17 21:06 1 UNITS Glucose (Glucose 40% Gel) 15-30 GRAMS 15 GRAMS... UD PRN PO 02/15/17 20:15 03/17/17 20:14 Glucose (Glucose Chew Tab) 4-8 Tablets 4 Tabl... UD PRN PO 02/15/17 20:15 03/17/17 20:14 Dextrose (Dextrose 50% 50ML Syringe) 25-50ML OF 50% DW IV FOR... UD PRN IV 02/15/17 20:15 03/17/17 20:14 Glucagon (Glucagon Inj) 1 mg UD PRN SQ 02/15/17 20:15 03/17/17 20:14 Erythromycin Lactobionate 250 mg/Sodium Chloride 255 ml @ 250 mls/hr Q8H IV 02/16/17 14:00 02/26/17 13:59 02/20/17 05:46 250 MLS/HR Albuterol/ Ipratropium (Duoneb) 3 ml QID PRN INH 02/19/17 13:00 03/17/17 19:59 Pantoprazole Sodium (Protonix Tab) 40 mg QAM PO 02/20/17 09:00 03/22/17 08:59 02/20/17 08:59 40 MG Bisacodyl (Dulcolax Tab) 10 mg BID PO 02/20/17 09:00 03/22/17 08:59 Objective Vital Signs Date Time Temp Pulse Resp B/P (MAP) Pulse Ox O2 Delivery O2 Flow Rate FiO2 02/20/17 05:10 71 115/61 (79) 02/20/17 04:00 Room Air 02/20/17 04:00 36.7 81 18 73/41 (52) 96 02/20/17 00:00 Room Air 02/19/17 23:59 36.7 66 19 118/74 (89) 94 Room Air 02/19/17 20:00 Room Air 02/19/17 19:47 36.8 80 18 109/69 (82) 92 Room Air 02/19/17 18:35 78 22 119/68 (85) 93 Room Air 02/19/17 17:40 78 20 118/46 (70) 95 Room Air 02/19/17 17:25 80 20 112/64 (80) 93 Room Air 02/19/17 17:10 78 20 111/47 (68) 92 Room Air 02/19/17 16:09 36.6 91 20 115/58 (77) 93 Room Air 02/19/17 16:00 Room Air 02/19/17 15:27 36.6 91 20 130/71 (90) 93 Room Air 02/19/17 12:01 36.8 82 121/65 (83) 93 02/19/17 12:01 92 Room Air 02/19/17 11:24 75 18 93 Room Air Physical Exam General Appearance: no apparent distress Neck: no JVD Respiratory/Chest: + crackles (fwe crackles at bases - but improved from previous) Cardiovascular: regular rate, rhythm, no JVD, no murmur Abdomen: soft, + distended (obese, mild distention) Neurologic/Psych: + disoriented, + pertinent finding (awakens easily with verbal or tactile stimulation and reacts with movement but only occasionally follows commands) Skin: normal color, no jaundice Laboratory Results Last 24 Hours Test 02/19/17 11:22 02/19/17 13:49 02/19/17 18:25 02/19/17 20:03 Bedside Glucose 148 mg/dl 137 mg/dl 153 mg/dl Sodium Level 138 mmol/L Potassium Level 3.3 mmol/L Chloride Level 108 mmol/L Carbon Dioxide Level 22 mmol/L Anion Gap 8.0 mmol/L Blood Urea Nitrogen 16 mg/dl Creatinine 1.08 mg/dl Est Creatinine Clear Calc Drug Dose 62.5 ml/min Estimated GFR () 71.6 Estimated GFR (Non- 61.8 BUN/Creatinine Ratio 15.2 Random Glucose 149 mg/dl Calcium Level 8.5 mg/dl Test 02/20/17 05:10 02/20/17 07:56 Sodium Level 141 mmol/L Potassium Level 3.8 mmol/L Chloride Level 111 mmol/L Carbon Dioxide Level 24 mmol/L Anion Gap 6.0 mmol/L Blood Urea Nitrogen 16 mg/dl Creatinine 1.11 mg/dl Est Creatinine Clear Calc Drug Dose 60.8 ml/min Estimated GFR () 69.3 Estimated GFR (Non- 59.8 BUN/Creatinine Ratio 14.5 Random Glucose 128 mg/dl Calcium Level 8.6 mg/dl Bedside Glucose 132 mg/dl Assessment and Plan Mr. Bryan is an 86 yr old with improved colon distention and improved discomfort after colonoscopic decompression yesterday. 1. Current stool regime Senna S BID, Dulcolax tab BID. Miralax daily. Would continue these. Please discontinue emycin. 2. Please maintain K >4.0. 3. No clear indication for continued KUBs. 4. May advance diet. 5. GI will sign off. Attg addendum: I interviewed and examined pt, reviewed chart and labs. Pt s/p successful decompression yesterday, with complete resolution of his ileus. Today , he has recurrence abd distention with x ray showing colon dilation of up to 8.5 cm. The prompt recurrence of his colon distention after decompression and his apparent tolerance of extreme colon distention suggests chronic pseudo obstruction. The risk of acute perforation from colon distention is low, and he likely will continue to be chronically distended. I would not pursue repeat decompression procedure. Please continue laxative regimen as outlined above and adv diet to soft mech. Please call with questions.
--- NOTE | 2017-02-20 11:20 | NUR ---
Discharge planning. I spoke with patients today while she was visiting. Plan remains for patient to return to the [facility] when stable. She is agreeable to litter transport. Will continue to follow.
--- NOTE | 2017-02-20 11:33 | NUR ---
Follow up note. Please refer to linked assessment Addendum: 02/20/17 at [address] Amended: Links added.
[2017-02-20] MEDS: BISACODYL 5 MG TABEC PO SCH ×2 (12:16→20:30)
[2017-02-20] MEDS ORDERED: POTASSIUM CHLORIDE 10 MEQ TABCR PO STA (12:31)
--- NOTE | 2017-02-20 12:34 | Hospitalist Progress Note ---
Hospitalist Progress Note Date of Service Feb 20, 2017. Subjective Pt evaluation today including: conversation w/ patient, physical exam, chart review, lab review, review of studies Pain: None PO Intake: Good - requires assistance Voiding: no voiding problems The patient was seen and examined this morning. Pt awakens easily with my exam. He is saying "hallelujah" and "amen" repeatedly today when I'm in the room. He denies any acute complaints. ROS: Denies pain, fever, chills, abdominal pain, bloating, but ROS difficult to ascertain due to dementia. Objective Vital Signs Date Time Temp Pulse Resp B/P (MAP) Pulse Ox O2 Delivery O2 Flow Rate FiO2 02/20/17 08:00 Room Air 02/20/17 05:10 71 115/61 (79) 02/20/17 04:00 Room Air 02/20/17 04:00 36.7 81 18 73/41 (52) 96 02/20/17 00:00 Room Air 02/19/17 23:59 36.7 66 19 118/74 (89) 94 Room Air 02/19/17 20:00 Room Air 02/19/17 19:47 36.8 80 18 109/69 (82) 92 Room Air 02/19/17 18:35 78 22 119/68 (85) 93 Room Air 02/19/17 17:40 78 20 118/46 (70) 95 Room Air 02/19/17 17:25 80 20 112/64 (80) 93 Room Air 02/19/17 17:10 78 20 111/47 (68) 92 Room Air 02/19/17 16:09 36.6 91 20 115/58 (77) 93 Room Air 02/19/17 16:00 Room Air 02/19/17 15:27 36.6 91 20 130/71 (90) 93 Room Air Physical Exam Notes: General Appearance: WD/WN, no apparent distress, + obese, + pertinent finding ( sleepy, awakens easily, pleasantly confused saying "hallelujah" and "amen") Eyes: PERRL, EOMI ENT: hearing grossly normal, pharynx normal, + pertinent finding (MM very dry) Neck: supple, no JVD Respiratory/Chest: no respiratory distress, no accessory muscle use, + pertinent finding (on RA, mild crackles at bases bilaterally, bronchial wheeze, No adventitious breath sounds. ) Cardiovascular: regular rate, rhythm, no murmur Abdomen: + abnormal bowel sounds (NABS x 4), + pertinent finding (+ Distension but improved compared to yesterday, +tympany throughout, no pain with palpation. No rebound tenderness or guarding.) Extremities: non-tender, no pedal edema Neurologic/Psychiatric: alert, not oriented to date time or place, follows simple commands with much encouragement Laboratory Results Last 24 Hours Test 02/19/17 13:49 02/19/17 18:25 02/19/17 20:03 02/20/17 05:10 Sodium Level 138 mmol/L 141 mmol/L Potassium Level 3.3 mmol/L 3.8 mmol/L Chloride Level 108 mmol/L 111 mmol/L Carbon Dioxide Level 22 mmol/L 24 mmol/L Anion Gap 8.0 mmol/L 6.0 mmol/L Blood Urea Nitrogen 16 mg/dl 16 mg/dl Creatinine 1.08 mg/dl 1.11 mg/dl Est Creatinine Clear Calc Drug Dose 62.5 ml/min 60.8 ml/min Estimated GFR () 71.6 69.3 Estimated GFR (Non- 61.8 59.8 BUN/Creatinine Ratio 15.2 14.5 Random Glucose 149 mg/dl 128 mg/dl Calcium Level 8.5 mg/dl 8.6 mg/dl Bedside Glucose 137 mg/dl 153 mg/dl Test 02/20/17 07:56 02/20/17 11:39 Bedside Glucose 132 mg/dl 161 mg/dl Assessment and Plan 86 yo male with dementia, presents with abdominal distention, pain, diarrhea, dyspnea, leukocytosis and colonic distension on CT abdomen, filled with fluid and gas Colonic distension: - rectal tube placed on 02/[address] Glynn, decompressed sigmoid but transverse remained dilated - KUB for several days shows transverse colon distension at 10cm - tube was removed on 02/18 - KUB repeat shows increased dilation of bowel loops despite agressive bowel regimen with enemas and stool softeners - no need for continued KUBs at this time - Pt underwent colonoscopy for decompression yesterday evening - abdomen is softer today, less distension but still with tympany on exam. - GI recommending erythromycin as prokinetic - distension most likely chronic from chronic constipation - confirmed with nursing facility on 02/19. - C diff negative - evaluated by surgery, no immediate surgical needs at this time - per attending family would not want surgical intervention even if needed Pneumonia: afebrile, mild reduction in leukocytosis down to 13k from 14k, continue Levaquin for total of 7 days, day #5 Hypokalemia: K was 3.8 today, give extra 20 meq to maintain above 4.0. Continued 10mEq BID and NSS + KCl @ 75 mL goal is to get up to 4.0 in setting of colonic distension and poor mobility per GI Severe dementia - Pt is pleasantly confused, answers questions and follows minimal commands with much encouragement DVT ppx: CODE STATUS: DNR Disposition: From the [facility], dementia unit
--- NOTE | 2017-02-20 13:37 | DIAGNOSTIC IMAGING REPORT ---
KUB HISTORY: Follow-up study in a patient with ileus ileus COMPARISON: KUB 02/19/2017 FINDINGS: Mild gaseous distention of the large bowel is again seen with transverse colon measuring up to 8.2 cm transversely. No definite small bowel dilation identified. Vascular calcifications noted.. There is no organomegaly. No renal calculi. No ureteral calculi. No pneumoperitoneum or pneumatosis. No fracture. Multilevel advanced degenerative changes of the spine. IMPRESSION: Mild gaseous distention of the colon is again seen suggesting ileus. No significant small bowel dilation identified. Electronically signed by: Bill Pugh M.D. 02/20/2017 1:36 PM Dictated Date/Time: 02/20/2017 1:33 PM
[2017-02-20 15:27] VITALS: BP 111/68; PULSE 72; TEMP 36.7; O2SAT 96
[2017-02-20 19:48] VITALS: BP 120/87; PULSE 18; PULSE 71; O2SAT 97
--- NOTE | 2017-02-20 20:00 | NUR ---
A:vss, at fib, max assist w/all adl's. incontinent, needs to be fed, abd slightly distended, tender,IVF's continue. plan is for pt. to return to [facility] upon discharge.
[2017-02-20] MEDS: LEVOFLOXACIN 750 MG TAB PO SCH (20:22)
[2017-02-20] MEDS: SERTRALINE HCL 100 MG TAB PO SCH (20:22)
--- NOTE | 2017-02-21 | NUR ---
A/ID:Atrial fib., vss,IVF's continue, repo q 2hrs., skin intact. plan is for pt. to return to [facility] upon dc. confused,speech garbled. total care, max assist. no c/o's abd pain.
[2017-02-21 00:19] VITALS: BP 134/86; PULSE 82; TEMP 36.7; O2SAT 94
--- NOTE | 2017-02-21 04:00 | NUR ---
A:vss, assessment unchanged, continue with MD plan.
[2017-02-21 04:48] VITALS: BP 133/79; PULSE 70; TEMP 36.5; O2SAT 100
[2017-02-21] MEDS: ERYTHROMYCIN IV 250 MG in SODIUM CHLORIDE 0.9% 250ML 250 ML IV SCH (05:45)
[2017-02-21 05:51] LABS: HEMATOCRIT 32.2 % (42-52); HEMOGLOBIN 9.6 g/dL (14.0-18.0); MEAN CELL VOLUME 93.1 fL (80-100); MEAN CORPUSCULAR HEMOGLOBIN 27.7 pg (25-34); MEAN CORPUSCULAR HGB CONC 29.8 g/dl (32-36); MEAN PLATELET VOLUME 11.1 fL (7.4-10.4); NUCLEATED RED BLOOD CELL ABS 0.02 K/uL (0-0); PLATELET COUNT 250 K/uL (130-400); RED CELL DISTRIBUTION WIDTH SD 50.8 fL (36.4-46.3)
--- NOTE | 2017-02-21 08:00 | NUR ---
A: Alert, oriented to person only. Resting comfortably in bed. Monitor in place, Afib noted. Denies pain, chest pain or shortness of breath. Bed in low position with bed alarm on. Call ferguson within reach. Continue to monitor.
[2017-02-21] MEDS: PANTOprazole SOD 40 MG TAB PO SCH (08:03)
[2017-02-21] MEDS: FERROUS SULFATE 325 MG TAB PO SCH (08:03)
[2017-02-21] MEDS: CEROVITE ADV FORMULA TAB PO SCH (08:03)
[2017-02-21] MEDS: DOCUSATE SODIUM/SENNA 50/8.6MG TAB PO SCH ×2 (08:03→19:51)
[2017-02-21] MEDS: SODIUM CHLORIDE 0.65% NA SOLN 45 ML (OCEAN) NAE SCH ×4 (08:03→20:02)
[2017-02-21] MEDS: POTASSIUM CHLORIDE 10 MEQ TABCR PO SCH ×2 (08:04→19:52)
[2017-02-21] MEDS: POLYETHYLENE (MIRALAX) 17 GM PACK PO SCH ×2 (08:05→19:51)
[2017-02-21 08:16] VITALS: BP 132/72; PULSE 71; TEMP 36.4; O2SAT 96
[2017-02-21] MEDS: INSULIN ASPART 100 UNITS/ML 3 ML PEN SC SCH ×4 (08:59→21:01)
[2017-02-21] MEDS: ASCORBIC ACID 500 MG TAB PO SCH ×2 (09:07→19:52)
[2017-02-21] MEDS: BISACODYL 5 MG TABEC PO SCH ×2 (09:07→19:51)
[2017-02-21] MEDS: HEPARIN SOD 5000 UNIT/0.5 ML CARP SQ SCH ×2 (09:10→19:58)
--- NOTE | 2017-02-21 10:03 | NUR ---
A: During rounding, pt. noted to have had a large emesis with food particles while supine. MD notified. Continue to monitor.
[2017-02-21] MEDS: NSS + 20MEQ KCL 1000ML 1,000 ML IV SCH (14:18)
--- NOTE | 2017-02-21 14:39 | Progress Note ---
Subjective Date of Service: Feb 21, 2017. Subjective Pt evaluation today including: conversation w/ patient, conversation w/ family (), physical exam, lab review, review of inpatient medication list Pain: no pain PO Intake: adequate Voiding: no voiding problems patient more alert, best he's looked in days fed himself large emesis after breakfast but no distress, lungs clear tolerated lunch better spoke with , will transfer back to [facility] tomorrow as long as he continues to tolerate meals Problem List Medical Problems: (1) Bilateral pneumonia Status: Acute (2) Ileus Status: Acute (3) Laceration of toe of right foot Status: Acute (4) Lactic acidosis Status: Acute (5) Leukocytosis Status: Acute (6) Severe sepsis Status: Acute Review of Systems cannot reviewed due to dementia Medications Current Inpatient Medications Medications (Trade) Dose Ordered Sig/Fidel Route Start Time Stop Time Status Last Admin Dose Admin Heparin Sodium (Porcine) (Heparin Sq 5000 Unit/0.5ml) 5,000 unit Q12 SQ 02/16/17 09:00 03/18/17 08:59 02/21/17 09:10 5,000 UNIT Potassium Chloride/Sodium Chloride 1,000 ml @ 75 mls/hr [id number] IV 02/15/17 20:45 03/17/17 20:44 02/21/17 14:18 75 MLS/HR Acetaminophen (Tylenol Tab) 650 mg Q4H PRN PO 02/15/17 18:00 03/17/17 17:59 Al Hydrox/Mg Hydrox/Simethicone (Maalox Max Susp) 15 ml Q4H PRN PO 02/15/17 18:00 03/17/17 17:59 Magnesium Hydroxide (Milk Of Magnesia Susp) 30 ml Q12H PRN PO 02/15/17 18:00 03/17/17 17:59 Ondansetron HCl (Zofran Inj) 4 mg Q6H PRN IV 02/15/17 18:00 03/17/17 17:59 Polyethylene (Miralax Powder Packet) 17 gm DAILY PRN PO 02/15/17 18:00 03/17/17 17:59 Ascorbic Acid (Vitamin C Tab) 500 mg BID PO 02/15/17 21:00 03/17/17 20:59 02/21/17 09:07 500 MG Insulin Glargine (Lantus Solostar Pen) 30 units QAM SC 02/16/17 09:00 03/18/17 08:59 Future Hold Multivitamins/ Minerals (Multivitamin W/ Minerals Tab) 1 tab DAILY PO 02/16/17 09:00 03/18/17 08:59 02/21/17 08:03 1 TAB Potassium Chloride (Klor-Con M10) 10 meq BID PO 02/15/17 21:00 03/17/17 20:59 02/21/17 08:04 10 MEQ Sodium Chloride ([place] Nasal [place]) 2 sprays QID KARO 02/15/17 21:00 03/17/17 20:59 02/21/17 13:25 2 SPRAYS Senna/Docusate Sodium (Senokot S Tab) 1 tab BID PO 02/15/17 21:00 03/17/17 20:59 02/21/17 08:03 1 TAB Sertraline HCl (Zoloft Tab) 100 mg HS PO 02/15/17 21:00 03/17/17 20:59 02/20/17 20:22 100 MG Ferrous Sulfate (Feosol Tab) 325 mg DAILY PO 02/16/17 09:00 03/18/17 08:59 02/21/17 08:03 325 MG Polyethylene (Miralax Powder Packet) 17 gm BID PO 02/15/17 21:00 03/17/17 20:59 02/21/17 08:05 17 GM Insulin Aspart (novoLOG ASPART) SLIDING SCALE G... ACHS SC 02/15/17 21:00 03/17/17 20:59 02/20/17 17:40 1 UNITS Glucose (Glucose 40% Gel) 15-30 GRAMS 15 GRAMS... UD PRN PO 02/15/17 20:15 03/17/17 20:14 Glucose (Glucose Chew Tab) 4-8 Tablets 4 Tabl... UD PRN PO 02/15/17 20:15 03/17/17 20:14 Dextrose (Dextrose 50% 50ML Syringe) 25-50ML OF 50% DW IV FOR... UD PRN IV 02/15/17 20:15 03/17/17 20:14 Glucagon (Glucagon Inj) 1 mg UD PRN SQ 02/15/17 20:15 03/17/17 20:14 Albuterol/ Ipratropium (Duoneb) 3 ml QID PRN INH 02/19/17 13:00 03/17/17 19:59 Pantoprazole Sodium (Protonix Tab) 40 mg QAM PO 02/20/17 09:00 03/22/17 08:59 02/21/17 08:03 40 MG Bisacodyl (Dulcolax Tab) 10 mg BID PO 02/20/17 09:00 03/22/17 08:59 02/21/17 09:07 10 MG Levofloxacin (Levaquin Tab) 750 mg Q24H PO 02/20/17 21:00 02/22/17 20:59 02/20/17 20:22 750 MG Objective Vital Signs Date Time Temp Pulse Resp B/P (MAP) Pulse Ox O2 Delivery O2 Flow Rate FiO2 02/21/17 08:16 36.4 71 18 132/72 (92) 96 02/21/17 08:00 Room Air 02/21/17 04:48 36.5 70 18 133/79 (97) 100 Room Air 02/21/17 04:16 Room Air 02/21/17 00:39 Room Air 02/21/17 00:19 36.7 82 20 134/86 (102) 94 Room Air 02/20/17 20:02 Room Air 02/20/17 19:48 71 18 120/87 (98) 97 Room Air 02/20/17 16:19 Room Air 02/20/17 15:27 36.7 72 20 111/68 (82) 96 Room Air Physical Exam General Appearance: WD/WN, no apparent distress Eyes: normal inspection, EOMI, sclerae normal ENT: normal ENT inspection, hearing grossly normal, pharynx normal Neck: supple, no adenopathy, no JVD, trachea midline Respiratory/Chest: chest non-tender, lungs clear, normal breath sounds, no respiratory distress, no accessory muscle use Cardiovascular: regular rate, rhythm, no edema, no gallop, no JVD, no murmur Abdomen: normal bowel sounds, non tender, soft, no organomegaly, + distended ( and tympanic with dilated colon) Extremities: normal range of motion, non-tender, normal inspection, no pedal edema, no calf tenderness, pelvis stable Neurologic/Psychiatric: food mobile driver II-XII nml as tested, no motor/sensory deficits, alert, normal mood/affect, + disoriented Skin: normal color, warm/dry, no rash Laboratory Results Last 24 Hours Test 02/20/17 16:17 02/20/17 20:42 02/21/17 05:18 02/21/17 07:47 Bedside Glucose 163 mg/dl 145 mg/dl 111 mg/dl White Blood Count 13.30 K/uL Red Blood Count 3.46 M/uL Hemoglobin 9.6 g/dL Hematocrit 32.2 % Mean Corpuscular Volume 93.1 fL Mean Corpuscular Hemoglobin 27.7 pg Mean Corpuscular Hemoglobin Concent 29.8 g/dl RDW Standard Deviation 50.8 fL RDW Coefficient of Variation 15.0 % Platelet Count 250 K/uL Mean Platelet Volume 11.1 fL Nucleated RBC Absolute Count (auto) 0.02 K/uL Nucleated Red Blood Cells % 0.1 % Test 02/21/17 11:32 Bedside Glucose 144 mg/dl Assessment and Plan 86 yo male with dementia, presents with abdominal distention, pain, diarrhea, dyspnea, leukocytosis and colonic distension on CT abdomen, filled with fluid and gas - Colonic distension: rectal tube placed on 02/[address] Glynn, decompressed sigmoid but transverse remained dilated KUB for several days shows transverse colon distension at 10cm, rectal tube in good position colonic decompression with colonoscopy, but dilation returned in 24 hours suggesting a chronic condition GI recommends Senna, Dulcolax C diff negative evaluated by surgery, no immediate surgical needs at this time discussed with family on 02/16, would not want surgical intervention even if needed eating well today except for large emesis this AM try to d/c to [facility] tomorrow - Pneumonia: afebrile, continue Levaquin for total of 7 days, day #7 - Hypokalemia: resolved, continue supplementation - Severe dementia DNR
[2017-02-21 15:58] VITALS: BP 129/84; PULSE 88; TEMP 36.8
[2017-02-21 19:21] VITALS: BP 127/76; PULSE 85; TEMP 37.1; O2SAT 94
[2017-02-21] MEDS: LEVOFLOXACIN 750 MG TAB PO SCH (19:51)
[2017-02-21] MEDS: SERTRALINE HCL 100 MG TAB PO SCH (19:51)
[2017-02-21 22:56] VITALS: BP 122/62; PULSE 85; TEMP 36.8; O2SAT 97
--- NOTE | 2017-02-22 00:41 | NUR ---
ID:assessment and condition unchanged. vss,see EMR for full nursing assessment. plan is for pt to return to [facility] when medically stable. max assist w/adl's.
[2017-02-22] MEDS: NSS + 20MEQ KCL 1000ML 1,000 ML IV SCH ×2 (02:07→12:45)
[2017-02-22 07:47] VITALS: BP 126/73; PULSE 73; TEMP 37; O2SAT 95
[2017-02-22] MEDS: INSULIN ASPART 100 UNITS/ML 3 ML PEN SC SCH ×2 (07:52→11:36)
[2017-02-22] MEDS: POLYETHYLENE (MIRALAX) 17 GM PACK PO SCH (07:53)
[2017-02-22] MEDS: CEROVITE ADV FORMULA TAB PO SCH (07:53)
[2017-02-22] MEDS: SODIUM CHLORIDE 0.65% NA SOLN 45 ML (OCEAN) NAE SCH (07:53)
[2017-02-22] MEDS: PANTOprazole SOD 40 MG TAB PO SCH (07:53)
[2017-02-22] MEDS: FERROUS SULFATE 325 MG TAB PO SCH (07:53)
[2017-02-22] MEDS: DOCUSATE SODIUM/SENNA 50/8.6MG TAB PO SCH (07:53)
[2017-02-22] MEDS: POTASSIUM CHLORIDE 10 MEQ TABCR PO SCH (07:53)
[2017-02-22] MEDS: BISACODYL 5 MG TABEC PO SCH (07:58)
[2017-02-22] MEDS: HEPARIN SOD 5000 UNIT/0.5 ML CARP SQ SCH (08:02)
[2017-02-22] MEDS: ASCORBIC ACID 500 MG TAB PO SCH (08:04)
[2017-02-22] MEDS ORDERED: CEFTRIAXONE SOD INJ 1,000 MG in DEXTROSE 5% 50ML 50 ML IV SCH (09:00)
--- NOTE | 2017-02-22 10:26 | NUR ---
Case Management Note- Per Dr. Perkins, patient is ready for discharge back to [facility]. Spoke with Christiane at [facility] and they can accept patient back today. [facility] can provide transportation for patient between [id number]. Technical Sales Specialist and RN aware. Message left for patient . Awaiting call back. Addendum: 02/22/17 at 1106 by Hillary Schreiber SERV Per GINNY Zheng, patient is not safe to transfer into a wheelchair. Cancelled transport with Mariaa at [facility]. Awaiting litter van transport time from Admissions. Spoke with patient , Angela Mckeon. She wanted to transport patient herself. Explained to her that it isn't safe and patient will need a litter. She agrees with this plan. Addendum: 02/22/17 at 1111 by Hillary Schreiber SERV [facility] to provide transport via litter van back to [facility] at 1:00pm Addendum: 02/22/17 at 1246 by Hillary Schreiber SERV Transport time changed to 3:00pm. Technical Sales Specialist and RN aware.
[2017-02-22] MEDS ORDERED: DLC5 PO (10:47)
[2017-02-22] MEDS ORDERED: CEPH-571 PO (10:47)
[2017-02-22] MEDS ORDERED: INSDGIPEN SC (10:47)
--- NOTE | 2017-02-22 10:55 | Discharge Instructions ---
Discharge Instructions Date of Service Feb 22, 2017. Admission Reason for Admission: Pneumonia, colonic distension Discharge Discharge Diagnosis / Problem: Pneumonia, E coli UTI, colonic distension Discharge Goals Goal(s): Decrease discomfort, Improve function Activity Recommendations Activity Level: Assistance Required Exercise/Sports Limitations: as tolerated . Additional Information Patient informed of condition: Yes Advance Directives: Yes DNR: Yes Level of Care: Skilled Communicable Disease: No Prognosis: Stable Oxygen at (LPM): no Harris Catheter: No Instructions / Follow-Up Instructions / Follow-Up Medications: - KEFLEX: 500mg twice a day for 6 more days, first dose due tomorrow AM because he got Rocephin today - DULCOLAX: 10mg twice a day - LANTUS: dose decreased to 30 units due to poor oral intake Colonic distension: patient presented with dilated colon, between 8-10cm. Unsure if this was an acute issue so rectal tube placed and sigmoid colon decompressed at time of admission. Despite rectal tube, colon remained dilated up to 10cm. Abdomen firm and distended but no pain, no distress. Aggressive bowel regimen started with Erythromycin as prokinetic agent and laxatives. No improvement. Had colonoscopy with decompression on 02/19, the colon completely decompressed. Became dilated again in less than 24 hours. This suggested a chronic issue, per GI, keep on bowel regimen. Low risk of perforation with chronic distension. Patient's family would not want any type of surgery even if he did perforate. Pneumonia: completed 7 days of Levaquin, breathing comfortably on room air UTI, E coli: final culture and sensitivity returned, actually resistant to Levaquin. Gave Rocephin 1000mg IV on 02/22, recommend completing 6 more days of Keflex FOLLOW UP - physician at the [facility] this week Current Hospital Diet Patient's current hospital diet: Full Liquid Diet Discharge Diet Recommended Diet: Diabetes Type 2 Diet Diet Texture: Mechanical Soft (ground) Procedures Procedures Performed: COLON Pending Studies Studies pending at discharge: no Physician Orders On Transfer POLST Discussion: without POLST completion Laboratory Results Hemoglobin A1c Test 02/15/17 14:52 Range/Units Estimated Average Glucose 134 mg/dl Hemoglobin A1c 6.3 H 4.5-5.6 % Medical Emergencies . Who to Call and When: Medical Emergencies: If at any time you feel your situation is an emergency, please call 911 immediately. . Non-Emergent Contact Non-Emergency issues call your: Primary Care Provider Call Non-Emergent contact if: you have any medication questions . . "Provider Documentation" section prepared by Rommel Perkins. . Core Measure Problem Core Measures: None [place] Drug Monitoring Program Search Results: no issues identified
[2017-02-22 11:41] VITALS: BP 126/73; PULSE 73; TEMP 37; O2SAT 95
--- NOTE | 2017-02-22 14:47 | Discharge Summary ---
Discharge Summary Date of Service Feb 22, 2017. Discharge Summary Admission Date: Feb 15, 2017 at 18:05 Discharge Date: Feb 22, 2017 Discharge Disposition: [facility] facility Principal Diagnosis: Colonic distension Problems/Secondary Diagnoses: Pneumonia E coli UTI Dementia Immunizations: Have You Had Influenza Vaccine: Yes History of Tetanus Vaccine?: Unknown History of Pneumococcal: Unknown History of Hepatitis B Vaccine: Unknown Procedures: Colonoscopy 02/19 Sigmoid decompression with rectal tube 02/15 Consultations: Gastroenterology Medication Reconciliation New Medications: Cephalexin (Keflex) 500 Mg Cap 1 CAP PO BID for 6 Days, #12 CAP Bisacodyl (Bisacodyl EC) 5 Mg Tabec 10 MG PO BID, #120 TABS 1 Refill Insulin Glargine (Lantus Solostar) 100 Unit/Ml Inj 30 UNITS SC QAM, #30 DOSE 1 Refill Continued Medications: Acetaminophen (Tylenol) 500 Mg Tab 500 MG PO BID PRN for Pain, TAB Ascorbic Acid (Vitamin C) 500 Mg Tab 500 MG PO BID Ferrous Sulfate (Kp Ferrous Sulfate) 325 Mg Tab 325 MG PO DAILY Furosemide (Lasix) 80 Mg Tab 80 MG PO DAILY, TAB Multiple Vitamins W/ Minerals (Therems M) 1 Tab Tab 1 TAB PO DAILY Omeprazole (Prilosec) 20 Mg Capcr 20 MG PO DAILY, CAP Polyethylene Glycol 3350 (Miralax) 1 Pow Pow 17 GM PO BID Potassium Chloride (Micro-K Ext Rel) 10 Meq Capcr 10 MEQ PO BID, CAP Saline ([place] Nasal [place]) 0.65 % Spr 2 SPRAYS KARO QID Sennosides-Docusate Sodium (Sennalax-S) 1 Tab Tab 1 TAB PO BID HOLD THIS MEDICATION FOR LOOSE STOOLS. Sertraline Hcl (Zoloft) 100 Mg Tab 100 MG PO HS Discontinued Medications: Insulin Glargine (Lantus) 100 Unit/Ml Inj 40 UNITS SC QAM, VIAL Discharge Exam Patient more alert again today, eating well, no vomiting for over 24 hours. Moving bowels with aggressive bowel regimen. Spoke at length with and daughter at the bedside. Review of Systems: Constitutional: + problem reported (cannot review due to dementia, denies pain, no further details) Physical Exam: General Appearance: no apparent distress, + obese Eyes: normal inspection, EOMI, sclerae normal ENT: normal ENT inspection, hearing grossly normal, pharynx normal Neck: supple, no adenopathy, no JVD, trachea midline Respiratory/Chest: chest non-tender, lungs clear, normal breath sounds, no respiratory distress, no accessory muscle use Cardiovascular: regular rate, rhythm, no edema, no gallop, no JVD, no murmur , normal peripheral pulses Abdomen / GI: non tender, soft, no organomegaly, no pulsatile mass, + abnormal bowel sounds (hypoactive), + distended Extremities: normal inspection, no calf tenderness, normal capillary refill , no pedal edema, normal range of motion, pelvis stable 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 Glynn, decompressed sigmoid but transverse remained dilated repeat KUB for several days shows transverse colon distension at 10cm, rectal tube in good position colonic decompression with colonoscopy on 02/19, but dilation returned in 24 hours suggesting a chronic condition GI recommends Senna, Dulcolax, Miralax C diff negative evaluated by surgery, no immediate surgical needs discussed with family on 02/16, would not want surgical intervention even if needed eating well for two days, one episode of emesis on 02/21 in the morning, none since unsure how patient will do given his distension, may be prone to vomiting episodes continue aggressive bowel regimen low risk for perforation per GI since this is chronic if he would have a catastrophic event the family would not want surgery - Pneumonia: afebrile, completed Levaquin for total of 7 days, breathing well still with leukocytosis, likely from UTI - UTI: culture came back late yesterday positive for E coli, resistant to Levaquin gave Rocephin 1000mg today complete 6 more days of Keflex 500mg BID - Hypokalemia: resolved, continue supplementation - Severe dementia DNR return to [facility], will need PT/OT, deconditioned while being in the hospital family aware that at this time we will wait and see how he tolerates this distension, 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 Discharge Instructions Please refer to the electronic Patient Visit Report (Discharge Instructions) for additional information. Follow-Up physician at [facility] within one week Additional Copies To [facility]
--- NOTE | 2017-02-22 15:11 | NUR ---
A: ordered discharge. Report called to Christiane at [facility], all questions answered. IV site discontinued, catheter intact. [facility] here to transport pt. to [facility] via litter van. All belongings including chart copy, discharge instructions, prescriptions and clothing.
== END 2017-02-22 15:15 | DRG 393 ==
LOC: EDBD 14:24 → C.EDB 14:26 → C.MED 18:05 → ENRESERV 19:32
PROVIDERS: ADMIT Hospitalist; ATTEND Internal Medicine
PROC: 0D9P80Z Drainage of Rectum with Drainage Device, Via Natural or Artificial Opening Endoscopic (ICD-10-PCS; principal; 2017-02-15 21:00)
PROC: 0DJD8ZZ Inspection of Lower Intestinal Tract, Via Natural or Artificial Opening Endoscopic (ICD-10-PCS; principal; 2017-02-15 21:00)
DX: K63.89 Other specified diseases of intestine (principal); J18.9 Pneumonia, unspecified organism; K59.39 Other megacolon; N39.0 Urinary tract infection, site not specified; K56.7 Ileus, unspecified; F03.90 Unspecified dementia, unspecified severity, without behavioral disturbance, psychotic disturbance, mood disturbance, and anxiety; Z82.49 Family history of ischemic heart disease and other diseases of the circulatory system; K64.4 Residual hemorrhoidal skin tags; I48.91 Unspecified atrial fibrillation; E11.9 Type 2 diabetes mellitus without complications; K21.9 Gastro-esophageal reflux disease without esophagitis; E78.5 Hyperlipidemia, unspecified; I10 Essential (primary) hypertension; Z86.73 Personal history of transient ischemic attack (TIA), and cerebral infarction without residual deficits; D72.829 Elevated white blood cell count, unspecified; E87.6 Hypokalemia; D64.9 Anemia, unspecified; Z66 Do not resuscitate; K52.9 Noninfective gastroenteritis and colitis, unspecified; B96.20 Unspecified Escherichia coli [E. coli] as the cause of diseases classified elsewhere